=== PATIENT | male | born 1950 | race Caucasian/White ===

== ENCOUNTER → 2017-08-10 | Outpatient (CLI) | payer MEDICARE ==
[~2017-08-10] VITALS: Ht 180.3 cm; Wt 73.0 kg
[2017-08-10] VITALS (7 sets, daily range): BP systolic 122–183; BP diastolic 83–99
[~2017-08-10] MED LIST: ASP325T PO; ASPI-983 PO; ATOR10TA PO; CATHETER FLUSH 10 ML SYR IV PRN; FENO135C; GARL10002 PO; GARL400T13 PO; IRB150T; LOSA50TA36 PO; MECL-124 PO; MECL12.579 PO; MULT-1029 PO; NAPR500T4 PO; NF-ESOM40C; NFNEB10T PO; NIAC10002 PO; NIAC1TBM21 PO; NIAC1TBM27; NTR.4SL PO; OMEP-10 PO; OMG1KC PO; PROP1TAB77 PO; PRX20T PO; RNT150T PO; TICA90TA PO
--- NOTE | 2017-08-11 06:52 | STRESS TEST ---
DATE OF SERVICE: 08/10/2017 PROCEDURE: Exercise Myoview Stress Test. Baseline heart rate is 59, baseline blood pressure 159/85. Baseline EKG is sinus rhythm with no ischemic changes. IN SUMMARY: The patient was injected with 10.01 mCi of technetium-99 Myoview and the resting images were obtained. Then, the patient started exercising with the baseline heart rate, blood pressure and EKG mentioned above. He was injected with a stress dose of 29.1 mCi of technetium-99 Myoview, was able to finish a total of 10 minutes and 30 seconds on standard [place] protocol, total of 12.1 Mets, achieving maximum heart rate of 151 which is 98% of maximum expected heart rate. With peak exercise level EKG was showing [address] depression in II, III, aVF, V4 and V5, occasional PVCs were noted. Blood pressure at peak was 183/99. During recovery, heart rate and blood pressure returned to baseline. EKG returned to baseline. The resting and stress images were reviewed and compared in the short axis, horizontal long axis, and vertical long axis views. Review of the images showed diaphragmatic attenuation with typical male pattern. No significant ischemia or infarction was seen. SSS is 3, SDS 3, TID value 0.86. On the gated images, the left ventricle appeared to be normal size with normal contractility. Calculated ejection fraction 63%. CONCLUSION: 1. Excellent exercise tolerance a total of 10 minutes 30 seconds on standard [place] protocol, total of 12.1 Mets, achieving 98% of maximum expected heart rate. 2. Occasional premature ventricular contractions at peak exercise level with nondiagnostic EKG changes with exercise, returned to baseline during recovery. 3. Hypertensive response to exercise, returned to baseline during recovery. 4. Typical male pattern with no significant ischemia or infarction on SPECT images. 5. Normal left ventricular size with normal contractility. Calculated ejection fraction 63%. Job ID: [id number] DocumentID: [id number] Dictated Date: 08/10/2017 11:34:31 Platform Loader Date: 08/10/2017 12:52:51 Dictated By: DAYANNA BATISTA MD
== END ==
LOC: CARD 07:02
PROVIDERS: ATTEND Internal Medicine Cardiovascular Disease
DX: I25.10 Atherosclerotic heart disease of native coronary artery without angina pectoris (principal); R07.89 Other chest pain; I10 Essential (primary) hypertension; E78.2 Mixed hyperlipidemia; R00.2 Palpitations
CPT/HCPCS: 78452; 93017

== ENCOUNTER → 2017-08-16 | Outpatient (CLI) | payer MEDICARE ==
[~2017-08-16] MED LIST changes: -CATHETER FLUSH 10 ML SYR IV PRN; +NAPR500T3 PO; -NAPR500T4 PO
== END ==
LOC: CARD 11:56
PROVIDERS: ATTEND Internal Medicine Cardiovascular Disease
DX: I25.10 Atherosclerotic heart disease of native coronary artery without angina pectoris (principal); R07.89 Other chest pain; I10 Essential (primary) hypertension; E78.2 Mixed hyperlipidemia; R00.2 Palpitations
CPT/HCPCS: 93306

== ENCOUNTER → 2017-12-12 | Outpatient (CLI) | payer MEDICARE ==
[~2017-12-12] MED LIST changes: -NAPR500T3 PO; +NAPR500T4 PO
--- NOTE | 2017-12-12 11:30 | Diagnostic Imaging Report ---
PROCEDURE: US Thyroid. TECHNIQUE: Multiple real-time grayscale images were obtained of the thyroid in various projections. INDICATION: Lump on right neck. FINDINGS: Right lobe of the thyroid measures 4.8 x 2.2 x 1.5 cm. Left lobe measures 4.7 x 1.8 x 1.6 cm. There are no discrete solid or cystic thyroid masses. In the region of palpable abnormality of the right neck there is a small lymph node measuring 0.8 cm. IMPRESSION: No evidence of a discrete thyroid nodule. The palpable abnormality appears to correspond with an 8 mm lymph node in the right neck. Dictated by: Dictated on workstation # [id number]
== END ==
LOC: RAD 08:53
PROVIDERS: ATTEND Nurse Practitioner Community Health
DX: R22.1 Localized swelling, mass and lump, neck (principal)
CPT/HCPCS: 76536

== ENCOUNTER → 2018-01-12 | Outpatient (CLI) | payer MEDICARE ==
[~2018-01-12] MED LIST changes: +CATHETER FLUSH 10 ML SYR IV PRN; +IOHEXOL 350 MG/ML 100 ML (OMNIPAQUE 350) VIAL IV ONE; +NAPR-915 PO; -NAPR500T4 PO; +NS 250 ML (IVPB) BAG IV ONE
[2018-01-12 11:44] LABS: BUN/CREATININE RATIO 13; CREATININE SERUM 0.79 MG/DL (0.60-1.30); GFR ESTIMATED > 60
--- NOTE | 2018-01-12 12:46 | Diagnostic Imaging Report ---
PROCEDURE: CT neck soft tissue with contrast. TECHNIQUE: Multiple contiguous axial images were obtained through the neck after the administration of contrast. INDICATION: Enlarged right neck lymph node. The study is performed for further evaluation. COMPARISON: No prior studies are available for comparison. FINDINGS: The visualized intracranial structures are unremarkable. Posterior nasopharynx and oropharynx are unremarkable. Parapharyngeal fat planes are preserved. The epiglottis and larynx are unremarkable. No thyroid mass is detected. The right submandibular gland appears to be very small. Left submandibular gland is unremarkable. Parotid glands are symmetric bilaterally. A BB marker was placed at the area of palpable abnormality in the right neck. No underlying abnormality is seen. This does correspond to the right sternocleidomastoid muscle. No soft tissue mass or fluid collection is seen. There are normal-sized jugulodigastric and posterior cervical lymph nodes bilaterally. IMPRESSION: Essentially unremarkable CT of the neck. No neck mass or lymphadenopathy is detected. Dictated by: Dictated on workstation # [id number]
== END ==
LOC: RAD 10:49
PROVIDERS: ATTEND Surgery
DX: R59.0 Localized enlarged lymph nodes (principal)
CPT/HCPCS: 36415; 70491; 82565; 84520

== ENCOUNTER 2019-05-11 11:04 | Outpatient (RCR) | payer MEDICARE | END 2019-08-09 | disposition home or self-care (01) | LOC: CARD 11:04 | PROVIDERS: ATTEND Internal Medicine Cardiovascular Disease | DX: I25.10 Atherosclerotic heart disease of native coronary artery without angina pectoris (principal); R00.2 Palpitations; E78.5 Hyperlipidemia, unspecified; I10 Essential (primary) hypertension; R07.89 Other chest pain ==

== ENCOUNTER → 2019-05-11 | Outpatient (CLI) | payer MEDICARE ==
[~2019-05-11] MED LIST changes: -CATHETER FLUSH 10 ML SYR IV PRN; -IOHEXOL 350 MG/ML 100 ML (OMNIPAQUE 350) VIAL IV ONE; -LOSA50TA36 PO; +LOSA50TA63 PO; -NS 250 ML (IVPB) BAG IV ONE
== END ==
LOC: CARD 10:57
PROVIDERS: ATTEND Internal Medicine Cardiovascular Disease
DX: I25.10 Atherosclerotic heart disease of native coronary artery without angina pectoris (principal); R00.2 Palpitations; E78.5 Hyperlipidemia, unspecified; I10 Essential (primary) hypertension; R07.9 Chest pain, unspecified; I36.1 Nonrheumatic tricuspid (valve) insufficiency
CPT/HCPCS: 93306

== ENCOUNTER 2019-08-15 06:58 | Day surgery (SDC) | payer MEDICARE ==
[2019-08-15] VITALS (9 sets, daily range): BP systolic 151–183; BP diastolic 79–96
[~2019-08-15] VITALS: Ht 180 cm; Wt 68.0 kg
[2019-08-15] MEDS ORDERED: NS IV 1000 ML 1,000 ML ONE (07:06)
[2019-08-15] MEDS ORDERED: LIDOCAINE 1% INJ 20 ML 20 ML VIAL ONE (07:06)
[2019-08-15] MEDS ORDERED: HEParin (CATH LAB) 2,000 ML IV ONE (07:06)
[2019-08-15] MEDS ORDERED: NS IV 1000 ML 1,000 ML IV SCH ×2 (07:15→09:29)
[2019-08-15 07:34] LABS: BILIRUBIN,URINE NEGATIVE (NEGATIVE); CLARITY,URINE CLEAR; COLOR,URINE YELLOW; GLUCOSE, URINE (UA) NEGATIVE (NEGATIVE); KETONES,URINE NEGATIVE (NEGATIVE); LEUKOCYTE ESTERASE ,URINE NEGATIVE (NEGATIVE); NITRITE,URINE NEGATIVE (NEGATIVE); PH,URINE 5 (5-9); PROTEIN,URINE NEGATIVE (NEGATIVE); UROBILINOGEN,URINE NORMAL (NORMAL)
[2019-08-15 07:36] LABS: HEMOGLOBIN 17.1 G/DL (13.3-17.7); MEAN PLATELET VOLUME 9.8 FL (7.4-10.4); RED CELL DISTRIBUTION WIDTH 12.1 % (10.0-14.5); WHITE BLOOD COUNT 6.6 10^3/uL (4.3-11.0)
[2019-08-15 07:46] LABS: BACTERIA,URINE TRACE /HPF; SQUAMOUS EPITHELIAL CELL,UR RARE /HPF; WBC,URINE RARE /HPF
[2019-08-15 07:47] LABS: PROTHROMBIN TIME PATIENT 13.6 SEC (12.2-14.7)
[2019-08-15] MEDS ORDERED: OMEP20TA7 PO (07:47)
[2019-08-15] MEDS ORDERED: LOSA100T57 PO (07:47)
[2019-08-15] MEDS ORDERED: NEBI20TA2 PO (07:47)
[2019-08-15] MEDS ORDERED: ATOR10TA PO (07:47)
[2019-08-15 07:52] LABS: ALANINE AMINOTRANSFERASE 28 U/L (0-55); ALBUMIN 4.5 GM/DL (3.2-4.5); ALKALINE PHOSPHATASE 64 U/L (40-136); BILIRUBIN,TOTAL 0.6 MG/DL (0.1-1.0); BUN/CREATININE RATIO 19; CALCIUM 9.4 MG/DL (8.5-10.1); CARBON DIOXIDE 27 MMOL/L (21-32); CHLORIDE 106 MMOL/L (98-107); CHOLESTEROL 165 MG/DL (< 200); GFR ESTIMATED > 60; GLUCOSE 103 MG/DL (70-105); HDL CHOLESTEROL 37 MG/DL (40-60); POTASSIUM 3.9 MMOL/L (3.6-5.0); SODIUM 143 MMOL/L (135-145); TOTAL PROTEIN 7.1 GM/DL (6.4-8.2); TRIGLYCERIDES 188 MG/DL (<150); VLDL CHOLESTEROL 38 MG/DL (5-40)
[2019-08-15] MEDS ORDERED: MULT-1029 PO (07:53)
[2019-08-15] MEDS ORDERED: OMG1KC PO (07:53)
[2019-08-15] MEDS ORDERED: ASPI-983 PO (07:53)
[2019-08-15] MEDS ORDERED: MAGN500C15 PO (07:53)
[2019-08-15] MEDS ORDERED: CHOL200025 PO (07:53)
[2019-08-15] MEDS ORDERED: GARL500C PO (07:53)
[2019-08-15] MEDS ORDERED: NAPR220C61 PO (07:53)
[2019-08-15] MEDS ORDERED: NIAC500T24 PO (07:53)
--- NOTE | 2019-08-15 08:01 | NUR ---
SPOKE WITH PT (HE HAD HIS BOTTLES) TO COMPLETE THE MED REC. PT WAS ABLE TO VERIFY ALL HIS MEDS ALONG WITH TELLING ME HOW HE TAKES EACH PRESCRIPTION. 07-31-2019 BYSTOLIC #30/30DS 07-31-2019 LOSARTAN #30/DS 07-31-2019 OMEPRAZOLE #30/DS 07-31-2019 ATORVASTATIN #DS THESE MEDS WERE ALL FILLED AT [facility] MEDS: FISH OIL 1,000: 3 CAPS DAILY NIACIN 500: 1 HS NAPROXEN 220M TABS DAILY CENTRUM SILVER: 1 DAILY MAGNESIUM 500M DAILY GARLIC: 1 DAILY VITAMIN D3: 1 DAILY ASPIRIN 81M DAILY
--- NOTE | 2019-08-15 08:02 | Cardiac Procedure Note-CS/ASA ---
Pre-Procedure Note Pre-Op Procedure Note H&P Reviewed The H&P was reviewed, patient examined and no changes noted. Date H&P Reviewed: Aug 15, 2019 Time H&P Reviewed: 08:02 Conscious Sedation Pre-Proced Time 08:02 ASA Score 3 For ASA 3 and 4: Consider anesthesia and medical clearance. Also, for patients with a history of failed moderate sedation consider anesthesia. Airway Lungs Heart ASA score ASA 1: a normal healthy patient ASA 2: a patient with a mild systemic disease (mid diabetes, controlled hypertension, obesity x ASA 3: a patient with a severe systemic disease that limits activity (angina, COPD, prior Myocardial infarction) ASA 4: a patient with an incapacitating disease that is a constant threat to life (CHF, renal failure) ASA 5: a moribund patient not expected to survive 24 hrs. (ruptured aneurysm) ASA 6: a declared brain- patient whose organs are being harvested. For emergent operations, add the letter E after the classification Mallampati Classification Grade 3 Sedation Plan Analgesia, Amnesia, Plan communicated to team members, Discussed options with patient/fam, Discussed risks with patient/fam The patient is an appropriate candidate to undergo the planned procedure, sedation, and anesthesia. The patient immediately re-assessed prior to indication. DAYANNA BATISTA MD Aug 15, 2019 08:02
--- NOTE | 2019-08-15 08:45 | Diagnostic Imaging Report ---
EXAMINATION: Portable AP chest obtained at 741h INDICATION: Preop heart catheter The heart size is within normal limits and stable when compared 06/17/16. The lungs are clear. There is no evidence for failure, pneumonia or for a pleural effusion. The mediastinum is not widened. The osseous structures are intact. IMPRESSION: There is no evidence for active disease. Dictated by: Dictated on workstation # [id number]
[2019-08-15] MEDS ORDERED: fentaNYL INJECTION 100 MCG/2 ML AMP ONE (08:55)
[2019-08-15] MEDS ORDERED: MIDAZOLAM 5 MG/5 ML (VERSED) VIAL ONE (08:55)
[2019-08-15] MEDS ORDERED: VERAPAMIL 5 MG/2 ML (CALAN) VIAL IV ONE (09:08)
[2019-08-15] MEDS ORDERED: NITRO DRIP 25000 MCG/D5W 250 ML IV ONE (09:08)
[2019-08-15] MEDS ORDERED: HEParin 1000 UNIT/ML (10ML VIAL) FOR BOLUS ONE (09:08)
--- NOTE | 2019-08-15 09:34 | Discharge Inst-Post CATH ---
Discharge Inst-CATH/EP Problems Reviewed?: Yes Post Cardiac Cath/EP D/C Inst Follow Up/Plan Appointment with Dr. Blackburn's office in 2-4 weeks <b>CARDIAC CATH/EP PROCEDURE DISCHARGE INSTRUCTIONS</b> ACTIVITY * Go Home directly and rest. * Limit activity of the leg (or wrist if it was used) for 7 days including aerobics, swimming, jogging, bicycling, etc. * Restrict stair-climbing for 7 days if possible, if not, climb up with your non-cath leg, then bring together on the same step. * Avoid lifting, pushing, pulling or excessive movement of the affected extremity for 7 days. * Customary sexual activity may be resumed after 2 days-use caution not to use a position that strains or causes pain to the affected extremity. * No driving for 24 hours. * NO SMOKING. * Avoid straining for bowel movements for 7 days. * Gentle walking on level ground is allowed. * Returning to work will depend on the type of procedure and the results. Your doctor will discuss this with you. CALL YOUR DOCTOR FOR ANY OF THE FOLLOWING: *If bleeding from the puncture site occurs- Apply gentle pressure to site with clean cloth and call your doctor or EMS. * If a knot or lump forms under the skin, increases in size, or causes pain. * If bruising appears to be worsening or moving further down your leg instead of disappearing. * Temperature above 101 F. CARE OF YOUR GROIN INCISION; * Bruising or purple discoloration of the skin near the puncture site is common. * You may shower only, no bathtub bathing for 5 days. Be careful to avoid slipping as your leg may feel stiff. * If a closure device was used on your femoral artery, please see the attached guide regarding care of the device and your leg. * Leave dressing on FOR 24 hours. CARE OF YOUR WRIST INCISION; * Bruising or purple discoloration of the skin near the puncture site is common. * You may shower. * DO NOT submerge wrist. * Leave dressing on FOR 24 hours. DAYANNA BLACKBURN MD Aug 15, 2019 09:34
--- NOTE | 2019-08-15 09:37 | Cardiac Cath Report ---
Cardiac Cath Report Physician (s)/Nutritionalist (s) Physician DAYANNA BATISTA MD Pre-Procedure Diagnosis Pre-Procedure Diagnosis: Coronary artery disease, ventricular tachycardia Post-Procedure Note Procedure Start Date: Aug 15, 2019 Name of Procedure: Left heart catheterization Findings/Procedure Note PROCEDURE NOTE: 68 years old gentleman with history of coronary artery disease, stent to the circumflex artery, was noted to have frequent PVCs and nonsustained ventricular tachycardia, he was scheduled for cardiac catheterization possible PTCA. After explaining the procedure to the patient, all pros and cons were explained, all questions were answered. The patient signed the consent and then he was placed on the cardiac catheterization laboratory. Groin was prepped SL fashion local anesthesia was used. Sheath placed in the Right radial artery, Austin catheter was advanced to the left ventricular cavity left ventricular pressure was measured, no angiogram was done, pullback LV to aorta was done, pressure was measured, adjusted left coronary system and angiogram to the left system was done, exchange to JR catheter, advanced to the right coronary system and angiogram was done. At the end of the procedure the sheath was removed. vascular band was used FINDINGS: Hemodynamics LV 147/15, end-diastolic pressure 15 Aorta 145/85 mean of 111 ANATOMY: Left Main is free of obstructive disease Left Anterior Descending has mild disease nonobstructive disease Left Circumflex has a patent stent with no obstructive disease Right Coronory Artery has mild disease obstructive disease LV Gram was not done, pressure was measured CONCLUSION: 1. Mild coronary artery disease nonobstructive disease 2. Normal left ventricular end-diastolic pressure DISCUSSION AND RECOMMENDATION: medical therapy is recommended no intervention is needed Anesthesia Type: Conscious Sedation Estimated blood loss (mL): 10 ml Contrast Amount: 45 ml Total Radiation Dose: 192 mGy Post-Procedure Diagnosis Post-operative diagnosis: Coronary artery disease Ventricular tachycardia Hypertension Hyperlipidemia DAYANNA BATISTA MD Aug 15, 2019 09:37
== END 2019-08-15 12:00 | disposition home or self-care (01) ==
LOC: CATH 06:58 → SDC 09:45 → CATH 12:00
PROVIDERS: ATTEND Internal Medicine Cardiovascular Disease
DX: I25.10 Atherosclerotic heart disease of native coronary artery without angina pectoris (principal); I77.1 Stricture of artery; I47.2 Ventricular tachycardia; I49.3 Ventricular premature depolarization; I10 Essential (primary) hypertension; K21.9 Gastro-esophageal reflux disease without esophagitis; E78.5 Hyperlipidemia, unspecified; R00.2 Palpitations; R59.0 Localized enlarged lymph nodes; Z87.891 Personal history of nicotine dependence; Z79.82 Long term (current) use of aspirin; Z79.899 Other long term (current) drug therapy; Z82.49 Family history of ischemic heart disease and other diseases of the circulatory system; Z82.3 Family history of stroke; Z80.9 Family history of malignant neoplasm, unspecified
CPT/HCPCS: 36415; 71045; 80053; 80061; 81000; 85027; 85610; 85730; 87081; 93005; 93458

== ENCOUNTER 2019-10-10 09:09 | Inpatient (IN) | payer MEDICARE, MEDICAID ==
[2019-10-10] VITALS (13 sets, daily range): BP systolic 87–120; BP diastolic 43–86
[~2019-10-10] VITALS: Ht 180 cm; Wt 70.0 kg
[~2019-10-10 09:09] MED LIST changes: +CHOL200025 PO; +GARL500C PO; +LOSA100T57 PO; +MAGN500C15 PO; +NAPR220C61 PO; +NEBI20TA2 PO; +NIAC500T24 PO; +OMEP20TA7 PO
[2019-10-10] MEDS ORDERED: ASPIRIN 81 MG CHEW (CHILDREN'S ASA) PO ONE (09:15)
--- NOTE | 2019-10-10 09:25 | NUR ---
PHARMACY NOTIFIED OF NEEDING SHO DARNELL.
[2019-10-10] MEDS ORDERED: DILTIAZEM 25 MG/5 ML INJ (CARDIZEM) VIAL IVP ONE (09:30)
[2019-10-10] MEDS ORDERED: DILTIAZEM IV FOR DRIP 125 MG in NS (IVPB) 100 ML IV SCH (09:30)
[2019-10-10 09:37] LABS: BASOPHILS % (AUTO) 1 % (0-10); EOSINOPHILS # (AUTO) 0.1 10^3/uL (0.0-0.3); EOSINOPHILS % (AUTO) 1 % (0-10); HEMATOCRIT 47 % (40-54); HEMOGLOBIN 15.7 G/DL (13.3-17.7); LYMPHOCYTES # (AUTO) 1.4 X 10^3 (1.0-4.0); LYMPHOCYTES % (AUTO) 21 % (12-44); MEAN CORPUSCULAR HEMOGLOBIN 31 PG (25-34); MEAN CORPUSCULAR HGB CONC 34 G/DL (32-36); MEAN CORPUSCULAR VOLUME 92 FL (80-99); MEAN PLATELET VOLUME 9.3 FL (7.4-10.4); MONOCYTES # (AUTO) 0.8 X 10^3 (0.0-1.0); MONOCYTES % (AUTO) 12 % (0-12); NEUTROPHILS # (AUTO) 4.3 X 10^3 (1.8-7.8); NEUTROPHILS % (AUTO) 65 % (42-75); PLATELET COUNT 371 10^3/uL (130-400); RED CELL DISTRIBUTION WIDTH 11.7 % (10.0-14.5); WHITE BLOOD COUNT 6.6 10^3/uL (4.3-11.0)
[2019-10-10 09:51] LABS: INR 1.1 (0.8-1.4); PROTHROMBIN TIME PATIENT 14.4 SEC (12.2-14.7)
--- NOTE | 2019-10-10 09:55 | Diagnostic Imaging Report ---
CLINICAL INDICATION: Patient with heart palpitations this morning. EXAM: Portable chest x-ray upright view. COMPARISON: Chest x-ray dated 08/15/2019. FINDINGS: LUNGS/PLEURA: Again seen is minimal atelectasis or scarring in the periphery of the right lung base. Otherwise, the lungs are clear. There is no pneumothorax. There is no pleural effusion. MEDIASTINUM: Unremarkable. PULMONARY VASCULATURE: Unremarkable. HEART: Unremarkable. BONES/EXTRATHORACIC SOFT TISSUE: There are hypertrophic spurs involving the visualized thoracic spine. IMPRESSION: 1. Stable chest x-ray exam with no interval radiographic evidence of acute cardiopulmonary process. 2. Stable minimal atelectasis or scarring in the periphery of the right lung base. Dictated by: Dictated on workstation # [id number]
[2019-10-10 09:56] LABS: ALANINE AMINOTRANSFERASE 18 U/L (0-55); ALKALINE PHOSPHATASE 81 U/L (40-136); BILIRUBIN,TOTAL 0.6 MG/DL (0.1-1.0); BUN/CREATININE RATIO 21; CALCIUM 9.3 MG/DL (8.5-10.1); CARBON DIOXIDE 25 MMOL/L (21-32); CHLORIDE 107 MMOL/L (98-107); CREATININE SERUM 0.75 MG/DL (0.60-1.30); GFR ESTIMATED > 60; GLUCOSE 93 MG/DL (70-105); MAGNESIUM 1.9 MG/DL (1.6-2.4); POTASSIUM 3.6 MMOL/L (3.6-5.0); SODIUM 144 MMOL/L (135-145); TOTAL PROTEIN 6.7 GM/DL (6.4-8.2)
--- NOTE | 2019-10-10 10:10 | ED Chest Pain ---
General Chief Complaint: Chest Pain Stated Complaint: CHEST PRESSURE Nursing Triage Note: ARRIVED VIA AMB TO ROOM 5 WITH COMPLAINTS OF CHEST PRESSURE AND PALPITATIONS STARTING APPX 1 HR PROOFER. Nursing Sepsis Screen: No Definite Risk Source: patient Exam Limitations: no limitations History of Present Illness Date Seen by Provider: Oct 10, 2019 Time Seen by Provider: 09:10 Initial Comments Here with report of chest pressure and palpitations that started approximately one hour ago. States that he feels like his heart is pounding. Does have history of previous stent but is not on blood thinner anymore as he is past the timeframe. Follows with Dr. Blackburn. Denies nausea, vomiting or weakness. Does feel short of breath. Timing/Duration: 1 hour Severity/Quality: moderate, pressure Location: central Radiation: no radiation Activities at Onset: none Prior CP/Workup: cardiac cath ASA po PROOFER: No NTG SL PROOFER: No Associated Symptoms: No abdominal pain, No back pain, No fever/chills, No nause a/vomiting, No shortness of breath, No weakness Allergies and Home Medications Allergies Coded Allergies: enalapril (Verified Adverse Reaction, Unknown, cough, 06/17/16) Home Medications Aspirin 81 Mg Tablet., 81 MG PO HS, (Reported) Atorvastatin Calcium 10 Mg Tablet, 10 MG PO DAILY, (Reported) Cholecalciferol (Vitamin D3) 2,000 Unit Tablet, 2,000 UNIT PO DAILY, (Reported) Garlic 500 Mg Capsule, 500 MG PO DAILY, (Reported) Losartan Potassium 100 Mg Tablet, 100 MG PO DAILY, (Reported) Magnesium Oxide 500 Mg Capsule, 500 MG PO DAILY, (Reported) Multivit-Min/FA/Lycopene/Lut 1 Each Tablet, 1 EACH PO DAILY, (Reported) Naproxen Sodium 220 Mg Capsule, 440 MG PO DAILY, (Reported) Nebivolol HCl 20 Mg Tablet, 20 MG PO DAILY, (Reported) Niacinamide 500 Mg Tablet, 500 MG PO HS, (Reported) [place] 3 Polyunsat Fatty Acids 1,000 Mg Cap, 3,000 MG PO DAILY, (Reported) Omeprazole 20 Mg Tablet.dr, 20 MG PO DAILY, (Reported) Patient Home Medication List Home Medication List Reviewed: Yes Review of Systems Review of Systems Constitutional: see HPI; No chills, No fever EENTM: No Symptoms Reported Respiratory: Denies Cough, Denies Shortness of Air Cardiovascular: Chest Pain, Irregular Heart Rate, Palpitations Gastrointestinal: No Symptoms Reported Genitourinary: No Symptoms Reported Musculoskeletal: no symptoms reported Skin: no symptoms reported Psychiatric/Neurological: No Symptoms Reported All Other Systems Reviewed Negative Unless Noted: Yes Past Ldxqifo-Zjupkg-Ckvmas Hx Past Med/Social Hx: Reviewed Nursing Past Med/Soc Hx Patient Social History Alcohol Use: Occasionally Uses Recreational Drug Use: Yes Drug of Choice: POT Smoking Status: Never a Smoker Type Used: Cigarettes Former Smoker, Quit: Jun 17, 1980 2nd Hand Smoke Exposure: Yes Recent Foreign Travel: No Contact w/Someone Who Travel: No Recent Infectious Disease Expo: No Recent Hopitalizations: No Past Medical History Surgeries: Yes Coronary Stent Respiratory: No Currently Using CPAP: No Currently Using BIPAP: No Cardiac: No (PVC'S) Coronary Artery Disease, High Cholesterol, Hypertension Neurological: No Genitourinary: No Gastrointestinal: Yes Gastroesophageal Reflux Musculoskeletal: No Endocrine: No Cancer: No Psychosocial: No Integumentary: No Family Medical History Reviewed Nursing Family Hx Physical Exam Vital Signs Vital Signs - First Documented 10/10/19 09:09 Temp 37.0 Pulse 121 Resp 16 B/P (MAP) 179/94 (122) Pulse Ox 98 O2 Delivery Room Air Capillary Refill : Less Than 3 Seconds Height, Weight, BMI Height: 5'11.00" Weight: 161lbs. 0.0oz. 73.890377hy; 20.00 BMI Method:Stated General Appearance: No Apparent Distress, WD/WN HEENT: PERRL/EOMI, Pharynx Normal Neck: Non Tender, Supple Respiratory: Lungs Clear, Normal Breath Sounds Cardiovascular: No Murmur, Irregularly Irregular, Tachycardia Gastrointestinal: Non Tender, Soft Extremity: Normal Range of Motion, Non Tender Neurologic/Psychiatric: Alert, Oriented x3 Skin: Normal Color, Warm/Dry Progress/Results/Core Measures Results/Orders Lab Results Laboratory Tests Test 10/10/19 09:28 Range/Units White Blood Count 6.6 4.3-11.0 10^3/uL Red Blood Count 5.05 4.35-5.85 10^6/uL Hemoglobin 15.7 13.3-17.7 G/DL Hematocrit 47 40-54 % Mean Corpuscular Volume 92 80-99 FL Mean Corpuscular Hemoglobin 31 25-34 PG Mean Corpuscular Hemoglobin Concent 34 32-36 G/DL Red Cell Distribution Width 11.7 10.0-14.5 % Platelet Count 371 130-400 10^3/uL Mean Platelet Volume 9.3 7.4-10.4 FL Neutrophils (%) (Auto) 65 42-75 % Lymphocytes (%) (Auto) 21 12-44 % Monocytes (%) (Auto) 12 0-12 % Eosinophils (%) (Auto) 1 0-10 % Basophils (%) (Auto) 1 0-10 % Neutrophils # (Auto) 4.3 1.8-7.8 X 10^3 Lymphocytes # (Auto) 1.4 1.0-4.0 X 10^3 Monocytes # (Auto) 0.8 0.0-1.0 X 10^3 Eosinophils # (Auto) 0.1 0.0-0.3 10^3/uL Basophils # (Auto) 0.0 0.0-0.1 10^3/uL Prothrombin Time 14.4 12.2-14.7 SEC INR Comment 1.1 0.8-1.4 Activated Partial Thromboplast Time 36 H 24-35 SEC Sodium Level 144 135-145 MMOL/L Potassium Level 3.6 3.6-5.0 MMOL/L Chloride Level 107 98-107 MMOL/L Carbon Dioxide Level 25 21-32 MMOL/L Anion Gap 12 5-14 MMOL/L Blood Urea Nitrogen 16 7-18 MG/DL Creatinine 0.75 0.60-1.30 MG/DL Estimat Glomerular Filtration Rate > 60 BUN/Creatinine Ratio 21 Glucose Level 93 70-105 MG/DL Calcium Level 9.3 8.5-10.1 MG/DL Corrected Calcium 9.3 8.5-10.1 MG/DL Magnesium Level 1.9 1.6-2.4 MG/DL Total Bilirubin 0.6 0.1-1.0 MG/DL Aspartate Amino Transf (AST/SGOT) 17 5-34 U/L Alanine Aminotransferase (ALT/SGPT) 18 0-55 U/L Alkaline Phosphatase 81 40-136 U/L Myoglobin 31.7 10.0-92.0 NG/ML Troponin I < 0.028 <0.028 NG/ML B-Type Natriuretic Peptide 123.9 H <100.0 PG/ML Total Protein 6.7 6.4-8.2 GM/DL Albumin 4.0 3.2-4.5 GM/DL My Orders Orders - JOSE G MILLER MD Cbc With Automated Diff (10/10/19 09:13) Magnesium (10/10/19 09:13) Chest 1 View, Ap/Pa Only (10/10/19 09:13) Ekg Tracing (10/10/19 09:13) Comprehensive Metabolic Panel (10/10/19 09:13) Myoglobin Serum (10/10/19 09:13) Protime With Inr (10/10/19 09:13) Partial Thromboplastin Time (10/10/19 09:13) O2 (10/10/19 09:13) Monitor-Rhythm Ecg Trace Only (10/10/19 09:13) Lipid Panel (10/11/19 06:00) Ed Iv/Invasive Line Start (10/10/19 09:13) BNP (10/10/19 09:13) Aspirin Chewable Tablet (Baby Aspirin Ch (10/10/19 09:15) Ns (Ivpb) (Sodium C... W/Diltiazem Iv Fo (10/10/19 09:30) Diltiazem Injection (Cardizem Injection) (10/10/19 09:30) Troponin I (10/10/19 09:28) Apixaban Tablet (Eliquis Tablet) (10/10/19 10:15) Medications Given in ED Current Medications Medications Dose Ordered Sig/Gonsalo Route Start Time Stop Time Status Last Admin Dose Admin Aspirin 324 mg ONCE ONCE PO 10/10/19 09:15 10/10/19 09:16 DC 10/10/19 09:31 324 MG Diltiazem HCl 10 mg ONCE ONCE IVP 10/10/19 09:30 10/10/19 09:31 DC 10/10/19 09:32 10 MG Vital Signs/I&O 10/10/19 10/10/19 09:09 09:38 Temp 37.0 Pulse 121 81 Resp 16 16 B/P (MAP) 179/94 (122) 179/94 Pulse Ox 98 97 O2 Delivery Room Air Blood Pressure Mean: 122 POS Progress Progress Note : Progress Note Seen and evaluated. IV, labs, EKG, chest x-ray and ASA 324 mg by mouth ordered. Monitor patient. A. fib with RVR noted. Cardizem 10 mg IV bolus and 10 mg an hour drip ordered. 1005: Heart rate now in the 70s to 80s but still in atrial fibrillation. Patient is not anticoagulated. Anticipate admission. This was discussed with the patient. He agrees. Monitor patient. 1018: I did discuss the case with Dr. Li. He is recommending admission to the ICU continuation of Cardizem. This will be done. He will see the patient in consult. I did discuss the case with Dr. Urban and she accepts patient for admission, inpatient status. Heart rate remains in the 80s. He is still in A. fib. This was discussed with the patient and family who agree. Initial ECG Impression Date: Oct 10, 2019 Initial ECG Impression Time: 09:13 Initial ECG Rate: 132 Initial ECG Rhythm: A Fib/Flutter Initial ECG Impression: Atrial Fibrillation w/RVR Comment A. fib with RVR. Normal axis. No evidence of ST elevation CA. Change from previous of 08/15/19. Interpreted by me. Diagnostic Imaging Diagonstic Imaging: Xray Plain Films/CT/US/NM/MRI: chest Comments [facility]. POS [place], [place] POS NAME: [facility] REC#: [id number] PT STATUS: REG ER : 1950 PHYSICIAN: JOSE G MILLER MD ADMIT DATE: 10/10/19/ER Draft POSDate of Exam:10/10/19 CHEST 1 VIEW, AP/PA ONLY CLINICAL INDICATION: Patient with heart palpitations this morning. EXAM: Portable chest x-ray upright view. COMPARISON: Chest x-ray dated 08/15/2019. FINDINGS: LUNGS/PLEURA: Again seen is minimal atelectasis or scarring in the periphery of the right lung base. Otherwise, the lungs are clear. There is no pneumothorax. There is no pleural effusion. MEDIASTINUM: Unremarkable. PULMONARY VASCULATURE: Unremarkable. HEART: Unremarkable. BONES/EXTRATHORACIC SOFT TISSUE: There are hypertrophic spurs involving the visualized thoracic spine. IMPRESSION: 1. Stable chest x-ray exam with no interval radiographic evidence of acute cardiopulmonary process. 2. Stable minimal atelectasis or scarring in the periphery of the right lung base. Dictated on workstation # [id number] Dict: 10/10/1951 Trans: 10/10/19 [id number] Interpreted by: PEE KAHN MD Electronically signed by: Departure Communication (Admissions) Time/Spoke to Admitting Phy: 10:18 Time/Spoke to Consulting Phy: 10:12 Impression Primary Impression: Atrial fibrillation with rapid ventricular response Additional Impression: Chest pain Qualified Codes: R07.9 - Chest pain, unspecified Disposition: 09 ADMITTED INPATIENT Condition: Stable Admissions Decision to Admit Reason: Admit from ER (General) Decision to Admit/Date: Oct 10, 2019 Time/Decision to Admit Time: 10:12 Departure-Patient Inst. Referrals: NO,LOCAL PHYSICIAN (PCP) Primary Care Physician MATEO JOSÉ (Family) Primary Care Physician JOSE G MILLER MD Oct 10, 2019 10:10 POS
[2019-10-10] MEDS ORDERED: APIXABAN 5 MG (ELIQUIS) TABLET PO ONE (10:15)
--- NOTE | 2019-10-10 10:52 | NUR ---
ATTEMPT TO CALL REPORT ET ICU NURSE BUSY AND WILL CALL BACK.
--- NOTE | 2019-10-10 11:44 | NUR ---
Telephone report received from Holly SMITH in the ED.Pt arrived to room CU10 at 1144 via stretcher, Linda SMITH accompanying patient for transport to room. Patient is alert and oriented. VSS. Patient denies chest pain at this time. IVF running as ordered. is at bedside. Bed in lowest position, wheels locked and call light is in reach.
[2019-10-10] MEDS ORDERED: FLU QUADRIvalent (5+ YOA) 2019-2020 (AFLURIA) 0.5 ML IM ONE (12:15)
[2019-10-10] MEDS ORDERED: niCARdipine 50 MG/NS 250 ML IV DRIP IV SCH ×2 (12:15)
[2019-10-10] MEDS ORDERED: PNEUMOCOCCAL VACCINE 0.5 ML/25 MCG VIAL IM ONE (12:15)
--- NOTE | 2019-10-10 12:23 | Consultation-Cardiology ---
HPI-Cardiology Cardiology Consultation: Date of Consultation 10/10/19 Time Seen by a Provider: 12:20 Date of Admission 10-10-19 Attending Physician Leslie Urban DO Admitting Physician Maria C,Local Physician Consulting Physician Gibson Li MD Primary Clam Bed Laborer: Dr. Blackburn HPI: Chief Complaint: New onset a-fib with RVR Mr. Lucas is a 68 year old male admitted to ICU 10 with new onset a-fib with RVR. He reports he has been having episodes of palpitations with increasing frequency over the last few weeks. He states approx a week ago he had an episode of palpitations which lasted for approx 12 hours. He reports this morning he got up, got dressed and was watching the news before work when his heart suddenly began to race. He states he checked his BP on home monitor and it was low, but his HR was 140's. He states he felt SOB and lightheaded. He reports the palpitations would not resolve so he came to the ED. He denies any c/o CP, syncope or near syncope. He denies any LE swelling. He states he had a recent viral illness with fever, chills, EDGAR and body aches that lasted for ap prox 14 days and was treated with OTC medications. He denies any n/v/d. Review of Systems-Cardiology Review of Systems Constitutional: As described under HPI Eyes: No vision change Ears/Nose/Throat: No epistaxis, No recent hearing loss Respiratory: As described under HPI Cardiovascular: As described under HPI Gastrointestinal: No constipation, No diarrhea, No nausea, No vomiting Genitourinary: No dysuria, No hematuria Musculoskeletal: As describe under HPI Skin: No rash on exposed areas, No ulcerations on exposed areas Psychiatric/Neurological: No anxiety, No depression, No seizure, No focal weakness, No syncope Hematologic: No bleeding abnormalities All Other Systems Reviewed Negative Unless Noted: Yes FZN-Hqsywd-Dzsoen Hx Patient Social History Alcohol Use: Occasionally Uses Recreational Drug Use: Yes Drug of Choice: POT Smoking Status: Never a Smoker Type Used: Cigarettes 2nd Hand Smoke Exposure: Yes Recent Foreign Travel: No Recent Infectious Disease Expo: No Past Medical History PMH As described under Assessment. Family Medical History Family Medical History: Father had a stroke in his 80's. Mother had HTN. Allergies and Home Medications Allergies Coded Allergies: enalapril (Verified Adverse Reaction, Unknown, cough, 06/17/16) Home Medications Apixaban 5 Mg Tablet, 5 MG PO BID Prescribed by: LORETA DOUGLASS on 10/10/19 1359 Aspirin 81 Mg Tablet.dr, 81 MG PO HS, (Reported) Atorvastatin Calcium 10 Mg Tablet, 10 MG PO DAILY, (Reported) Diltiazem HCl 240 Mg Cap.er.24h, 240 MG PO DAILY@0900 Prescribed by: LORETA DOUGLASS on 10/10/19 1359 Garlic 500 Mg Capsule, 500 MG PO DAILY, (Reported) Losartan Potassium 50 Mg Tablet, 100 MG PO DAILY, (Reported) TAKES 2 (50MG) TABLETS Magnesium Oxide 500 Mg Capsule, 500 MG PO DAILY, (Reported) Multivit-Min/FA/Lycopene/Lut 1 Each Tablet, 1 TAB PO DAILY, (Reported) Naproxen Sodium 220 Mg Capsule, 440 MG PO DAILY PRN for PAIN-MILD (1-4), (Reported) TAKES 2 (220MG) CAPSULES Nebivolol HCl 20 Mg Tablet, 20 MG PO DAILY, (Reported) Niacinamide 500 Mg Tablet, 500 MG PO HS, (Reported) [place] 3 Polyunsat Fatty Acids 1,000 Mg Cap, 3,000 MG PO DAILY, (Reported) Omeprazole 20 Mg Capsule.dr, 20 MG PO DAILY, (Reported) Physical Exam-Cardiology Physical Exam Vital Signs/I&O 10/10/19 10/10/19 10/10/19 10/10/19 09:09 09:38 11:37 11:45 Temp 37.0 Pulse 121 81 67 70 Resp 16 16 16 B/P (MAP) 179/94 (122) 179/94 110/73 107/75 (86) Pulse Ox 98 97 98 97 O2 Delivery Room Air Room Air Room Air 10/10/19 10/10/19 10/10/19 12:00 12:26 13:00 Pulse 70 78 78 Resp 38 19 B/P (MAP) 107/75 (86) 103/67 (79) Pulse Ox 96 98 O2 Delivery Room Air Room Air Capillary Refill : Less Than 3 Seconds Constitutional: AAO x 3, well-developed, well-nourished HEENT: PERRL, hearing is well preserved, oral hygience is good Neck: No carotid bruit; carotid pulses are 2 + bilaterally Respiratory: No accessory muscle use, No respiratory distress; chest expansion is symmetric, chest is bilaterally symmetric, lungs clear to auscultation, other (approx quarter sized protrusion at the tip of the sternum) Cardiovascular: irregularly irregular; No JVD; S1 and S2 Gastrointestinal: No tender; soft, round, audible bowel sounds Rectal: deferred Extremities: no lower extremity edema bilateral Neurologic/Psychiatric: grossly intact Skin: No rash on exposed areas, No ulcerations on exposed areas Data Review Labs Laboratory Tests 10/10/19 09:28: White Blood Count 6.6, Red Blood Count 5.05, Hemoglobin 15.7, Hematocrit 47, Mean Corpuscular Volume 92, Mean Corpuscular Hemoglobin 31, Mean Corpuscular Hemoglobin Concent 34, Red Cell Distribution Width 11.7, Platelet Count 371, Mean Platelet Volume 9.3, Neutrophils (%) (Auto) 65, Lymphocytes (%) (Auto) 21, Monocytes (%) (Auto) 12, Eosinophils (%) (Auto) 1, Basophils (%) (Auto) 1, Neutrophils # (Auto) 4.3, Lymphocytes # (Auto) 1.4, Monocytes # (Auto) 0.8, Eosinophils # (Auto) 0.1, Basophils # (Auto) 0.0, Prothrombin Time 14.4, INR Comment 1.1, Activated Partial Thromboplast Time 36H, Sodium Level 144, Potassium Level 3.6, Chloride Level 107, Carbon Dioxide Level 25, Anion Gap 12, Blood Urea Nitrogen 16, Creatinine 0.75, Estimat Glomerular Filtration Rate > 60, BUN/Creatinine Ratio 21, Glucose Level 93, Calcium Level 9.3, Corrected Calcium 9.3, Magnesium Level 1.9, Total Bilirubin 0.6, Aspartate Amino Transf (AST/SGOT) 17, Alanine Aminotransferase (ALT/SGPT) 18, Alkaline Phosphatase 81, Myoglobin 31.7, Troponin I < 0.028, B-Type Natriuretic Peptide 123.9H, Total Protein 6.7, Albumin 4.0 Radiology NAME: STEW LUCAS [facility] REC#: [id number] PT STATUS: ADM IN : 1950 PHYSICIAN: JOSE G MILLER MD ADMIT DATE: 10/10/19/ICU Signed Date of Exam:10/10/19 CHEST 1 VIEW, AP/PA ONLY CLINICAL INDICATION: Patient with heart palpitations this morning. EXAM: Portable chest x-ray upright view. COMPARISON: Chest x-ray dated 08/15/2019. FINDINGS: LUNGS/PLEURA: Again seen is minimal atelectasis or scarring in the periphery of the right lung base. Otherwise, the lungs are clear. There is no pneumothorax. There is no pleural effusion. MEDIASTINUM: Unremarkable. PULMONARY VASCULATURE: Unremarkable. HEART: Unremarkable. BONES/EXTRATHORACIC SOFT TISSUE: There are hypertrophic spurs involving the visualized thoracic spine. IMPRESSION: 1. Stable chest x-ray exam with no interval radiographic evidence of acute cardiopulmonary process. 2. Stable minimal atelectasis or scarring in the periphery of the right lung base. Dictated by: Dictated on workstation # [id number] ECG Impression ECG Initial ECG Impression: Atrial Fibrillation w/RVR A/P-Cardiology Assessment/Admission Diagnosis New onset a-fib with RVR (first diagnosed 10-10-19 ED visit on EKG) Palpitations with increasing frequency over the last few weeks Recent viral illness for approx 14 days with reported fever and chills - resolv ed CAD - Cardiac cath of Aug 15, [address] Blackburn showed Mild coronary artery disease nonobstructive disease. Normal left ventricular end-diastolic pressure. Previous cardiac catheterization June 17, 2016 revealing proximal/ostial left circumflex 80% eccentric stenosis. Successful primary stenting with excellent results with careful positioning using 3 x 12 mm Promus Premier drug-eluting stent. 30 day event monitor April 2019 showed an episode of 4 beat nonsustained ventricular tachycardia, asymptomatic at the time (subsequent cardiac cath as noted above) History of PVCs Hypertension Hyperlipidemia - reported intolerance to statin d/t myalgias Mild nonobstructive carotid artery stenosis per carotid duplex done in September 2018 Discussion and Recomendations New onset of a-fib with RVR - rate improved with IV Diltiazem - will change to oral Echocardiogram to eval structure and function OAC with Eliquis for stroke prophylaxis Monitor lab closely Further recs will be based on his hospital course We would like to thank medical services for this consult Clinical Quality Measures AMI/AHF: ASA po Prior to arrival: No DVT/VTE Risk/Contraindication: Risk Factor Score Per Nursin RFS Level Per Nursing on Admit: 2=Moderate LORETA DOUGLASS Oct 10, 2019 12:23 POS
[2019-10-10] MEDS ORDERED: DILTIAZEM 180 MG (CARDIZEM CD) CAP PO ONE (12:45)
[2019-10-10] MEDS ORDERED: DILTIAZEM 240 MG (CARDIZEM CD) CAP PO NR (13:00)
[2019-10-10] MEDS ORDERED: CATHETER FLUSH 10 ML SYR IV PRN (13:15)
[2019-10-10] MEDS ORDERED: ATOR10TA66 PO (13:25)
[2019-10-10] MEDS ORDERED: LOSA50TA63 PO (13:25)
[2019-10-10] MEDS ORDERED: OMEP20CA13 PO (13:25)
--- NOTE | 2019-10-10 13:27 | NUR ---
SPOKE WITH THE PATIENT ABOUT HIS MEDICATIONS. WE WENT OVER THE EXT MED HX AND HE VERIFIED HIS OTC MEDS. [facility] FILLED LOSARTAN 50MG #60 FOR 30 DAYS 10-01-19 PREVIOUSLY THEY FILLED THE 100MG TABLET #30 08-26-19. HE STATES HE WAS UNAWARE THEY CHANGED THE DOSE ON HIM SO HE HAS ONLY BEEN TAKING 1 TAB DAILY (50MG) INSTEAD OF THE FULL INTENDED DOSE OF 100MG. I CALLED THE PHARMACY AND THEY STATE THE 100MG TABS HAVE BEEN UNAVAILABLE SO THEY HAVE SWITCHED ALL THEIR PATIENTS TO TWO OF THE 50MG TABS. I LEFT IT ON THE MED REC 2 (50MG) TABS DAILY AND INFORMED THE PATIENT. HE IS GOING TO LET HIS DRJuju KNOW ABOUT THE MISTAKE AND RESUME TAKING IT CORRECTLY FROM NOW ON. OTC MEDS: FISH OIL 3 DAILY ASPIRIN 81MG HS GARLIC DAILY MAGNESIUM DAILY MTV DAILY ALEVE 2 TABS DAILY PRN NIACIN HS
[2019-10-10] MEDS: NS IV 1000 ML 1,000 ML IV SCH ×2 (13:38→22:30)
[2019-10-10] MEDS: DILTIAZEM 125 MG/NS 100 ML IV SCH ×2 (13:41)
[2019-10-10] MEDS ORDERED: DILT240C97 PO (13:59)
[2019-10-10] MEDS ORDERED: APIX5TAB PO (13:59)
--- NOTE | 2019-10-10 14:08 | History & Physical-Hospitalist ---
History of Present Illness HPI/Chief Complaint Chief complaint: Palpitations History of present illness: This is a 68-year-old white male clinic patient of [facility] who presents to the ER with palpitations found to have new onset atrial fibrillation with rapid ventricular response. He reports that he's had palpitations on and off for a while the most recent lasted about 12 hours. It spontaneously resolved. Reports some chest pain accompanying the palpitations. He does not smoke and rarely drinks alcohol and he is and has a full-time job after retiring from the [employer] business. At this current time patient is on a Cardizem drip and the goal is to initiate oral anticoagulation for stroke prophylaxis gained rate control and hopefully convert and have further cardiology workup. Source: patient, family Exam Limitations: no limitations Date Seen 10/10/19 Time Seen by a Provider: 14:45 Attending Physician Leslie Urban DO PCP No,Local Physician Referring Physician Date of Admission Oct 10, 2019 at 10:46 Home Medications & Allergies Home Medications Reviewed patient Home Medication Reconciliation performed by pharmacy medication reconciliations photovoltaic testing technician and/or nursing. Patients Allergies have been reviewed. 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) Alcohol Use: Occasionally Uses Recreational Drug Use: Yes Drug of Choice: POT Smoking Status: Never a Smoker Former Smoker, Quit: Jun 17, 1980 Type Used: Cigarettes 2nd Hand Smoke Exposure: Yes Recent Foreign Travel: No Contact w/other who traveled: No Recent Hopitalizations: No Recent Infectious Disease Expo: No Past Medical History Surgeries: Coronary Stent Currently Using CPAP: No Currently Using BIPAP: No Cardiac: Coronary Artery Disease, High Cholesterol, Hypertension Gastrointestinal: Gastroesophageal Reflux Family History Reviewed Nursing Family Hx Review of Systems Constitutional: see HPI Respiratory: short of breath Cardiovascular: chest pain, palpitations Physical Exam Physical Exam Vital Signs Vital Signs - First Documented 10/10/19 09:09 Temp 37.0 Pulse 121 Resp 16 B/P (MAP) 179/94 (122) Pulse Ox 98 O2 Delivery Room Air Capillary Refill : Less Than 3 SecondsLess Than 3 Seconds Height, Weight, BMI Height: 5'11.00" Weight: 161lbs. 0.0oz. [id number]; 20.00 BMI Method:Stated General Appearance: No Apparent Distress Eyes: Right Eye Normal Inspection, Right Eye PERRL HEENT: PERRL/EOMI, TMs Normal, Normal ENT Inspection, Pharynx Normal, Moist Mucous Membranes Neck: Full Range of Motion, Normal Inspection, Non Tender Respiratory: Chest Non Tender, Lungs Clear, Normal Breath Sounds, No Accessory Muscle Use, No Respiratory Distress Cardiovascular: No Edema, No Gallop, No JVD, No Murmur, Normal Peripheral Pulses, Irregularly Irregular, Tachycardia Gastrointestinal: Normal Bowel Sounds, No Organomegaly, No Pulsatile Mass, Non Tender, Soft Back: Normal Inspection, No CVA Tenderness, No Vertebral Tenderness Extremity: Normal Capillary Refill, Normal Inspection, Normal Range of Motion, Non Tender, No Calf Tenderness, No Pedal Edema Neurologic/Psychiatric: Alert, Oriented x3, No Motor/Sensory Deficits, Normal Mood/Affect Skin: Normal Color, Warm/Dry Lymphatic: No Adenopathy Results Results/Procedures Labs Laboratory Tests 10/10/19 09:28 Patient resulted labs reviewed. Assessment/Plan Admission Diagnosis Assessment: New-onset atrial fibrillation with rapid ventricular response Chest pain History of CAD Hypertension Hyperlipidemia GERD Plan: Rate control and hopefully converted with Cardizem Oral adequate coagulation for stroke prophylaxis Reconcile home meds Admission Status: Inpatient Order (span 2 midnights) Reason for Inpatient Admission: Atrial fibrillation require IV Cardizem and cardiology workup Diagnosis/Problems Diagnosis/Problems (1) Atrial fibrillation with rapid ventricular response Status: Acute (2) Chest pain Status: Acute Qualifiers: Chest pain type: unspecified Qualified Codes: R07.9 - Chest pain, unspecified (3) HLP (4) HTN (hypertension) (5) CAD (coronary artery disease) Clinical Quality Measures AMI/AHF: ASA po Prior to arrival: No DVT/VTE Risk/Contraindication: Risk Factor Score Per Nursin RFS Level Per Nursing on Admit: 2=Moderate LESLIE URBAN DO Oct 10, 2019 14:08 POS
[2019-10-10] MEDS ORDERED: ACETAMINOPHEN 500 MG TAB (TYLENOL) PO PRN (14:15)
[2019-10-10] MEDS ORDERED: ONDANSETRON 4 MG (ZOFRAN) ORAL DISSOLVE TAB PO PRN (14:15)
[2019-10-10] MEDS ORDERED: LOPERAMIDE 2 MG (IMODIUM) TABLET PO PRN (14:15)
[2019-10-10] MEDS ORDERED: DOCUSATE SODIUM 100 MG (COLACE) CAP PO PRN (14:15)
[2019-10-10] MEDS ORDERED: HYDROcodone/APAP 5 MG/325 MG (LORTAB) TAB PO PRN (14:15)
[2019-10-10] MEDS ORDERED: MELATONIN 3 MG TABLET PO PRN (14:15)
[2019-10-10] MEDS ORDERED: diphenhydrAMINE 25 MG TAB (BENADRYL) PO PRN (14:15)
[2019-10-10] MEDS ORDERED: ALPRAZolam 0.25 MG (XANAX) TAB PO PRN (14:15)
[2019-10-10] MEDS ORDERED: ONDANSETRON 4 MG/2 ML (SDV) Z0FRAN IVP PRN (14:15)
--- NOTE | 2019-10-10 14:40 | NUR ---
PO Cardizem given at 1340, IV Cardizem turned off at 1440 per physician. VSS.
[2019-10-10] MEDS ORDERED: NIACIN 500 MG TABLET PO SCH (17:00)
[2019-10-10] MEDS ORDERED: VANCOMYCIN 1250 MG/NS 250 ML IVPB IV NR ×2 (18:30)
[2019-10-10] MEDS: APIXABAN 5 MG (ELIQUIS) TABLET PO SCH (20:55)
[2019-10-10] MEDS: SENNA W/DOCUSATE (SENOKOT S) TABLET PO SCH (20:55)
[2019-10-10] MEDS ORDERED: ASPIRIN E.C. 81 MG (ECOTRIN) TAB PO SCH (21:00)
--- NOTE | 2019-10-10 21:09 | Consultation-Cardiology ---
HPI-Cardiology Cardiology Consultation: Date of Consultation 10/10/19 Time Seen by a Provider: 20:50 Date of Admission Attending Physician Leslie Urban DO Admitting Physician No,Local Physician Consulting Physician TIFFANY GAO MD, MA, FACP, FACC, [facility] [place] HPI: Chief Complaint: Reason for consultation: New onset a-fib with RVR HPI Mr. Briggs is a 68 year old male admitted to ICU 10 with new onset a-fib with RVR. He reports he has been having episodes of palpitations with increasing frequency over the last few weeks. He states approx a week ago he had an episode of palpitations which lasted for approx 12 hours. He reports this morning he got up, got dressed and was watching the news before work when his heart suddenly began to race. He states he checked his BP on home monitor and it was low, but his HR was 140's. He states he felt SOB and lightheaded. He reports the palpitations would not resolve so he came to the ED. He denies any c/o CP, syncope or near syncope. He denies any LE swelling. He states he had a recent viral illness with fever, chills, EDGAR and body aches that lasted for approx 14 days and was treated with OTC medications. He denies any n/v/d. Review of Systems-Cardiology Review of Systems Constitutional: As described under HPI Eyes: No vision change Ears/Nose/Throat: No epistaxis, No recent hearing loss Respiratory: As described under HPI Cardiovascular: As described under HPI Gastrointestinal: No constipation, No diarrhea, No nausea, No vomiting Genitourinary: No dysuria, No hematuria Musculoskeletal: As describe under HPI Skin: No rash on exposed areas, No ulcerations on exposed areas Psychiatric/Neurological: No anxiety, No depression, No seizure, No focal weakness, No syncope Hematologic: No bleeding abnormalities All Other Systems Reviewed Negative Unless Noted: Yes QZG-Stkgtn-Cupqha Hx Patient Social History Marrital Status: 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 Family Medical History Family Medical History: Father had a stroke in his 80's. Mother had HTN. Allergies and Home Medications Allergies Coded Allergies: enalapril (Verified Adverse Reaction, Unknown, cough, 06/17/16) Home Medications Apixaban 5 Mg Tablet, 5 MG PO BID Prescribed by: LORETA DOUGLASS on 10/10/19 1359 Aspirin 81 Mg Tablet.dr, 81 MG PO HS, (Reported) Atorvastatin Calcium 10 Mg Tablet, 10 MG PO DAILY, (Reported) Diltiazem HCl 240 Mg Cap.er.24h, 240 MG PO DAILY@0900 Prescribed by: LORETA DOUGLASS on 10/10/19 1359 Garlic 500 Mg Capsule, 500 MG PO DAILY, (Reported) Losartan Potassium 50 Mg Tablet, 100 MG PO DAILY, (Reported) TAKES 2 (50MG) TABLETS Magnesium Oxide 500 Mg Capsule, 500 MG PO DAILY, (Reported) Multivit-Min/FA/Lycopene/Lut 1 Each Tablet, 1 TAB PO DAILY, (Reported) Naproxen Sodium 220 Mg Capsule, 440 MG PO DAILY PRN for PAIN-MILD (1-4), (Reported) TAKES 2 (220MG) CAPSULES Nebivolol HCl 20 Mg Tablet, 20 MG PO DAILY, (Reported) Niacinamide 500 Mg Tablet, 500 MG PO HS, (Reported) [place] 3 Polyunsat Fatty Acids 1,000 Mg Cap, 3,000 MG PO DAILY, (Reported) Omeprazole 20 Mg Capsule.dr, 20 MG PO DAILY, (Reported) Patient Home Medication List Home Medication List Reviewed: Yes Physical Exam-Cardiology Physical Exam Vital Signs/I&O 10/10/19 10/10/19 10/10/19 10/10/19 09:09 09:38 11:37 11:45 Temp 37.0 Pulse 121 81 67 70 Resp 16 16 16 B/P (MAP) 179/94 (122) 179/94 110/73 107/75 (86) Pulse Ox 98 97 98 97 O2 Delivery Room Air Room Air Room Air 10/10/19 10/10/19 10/10/19 10/10/19 12:00 12:00 12:26 13:00 Pulse 70 78 84 Resp 38 B/P (MAP) 107/75 (86) Pulse Ox 98 96 O2 Delivery Room Air Room Air 10/10/19 10/10/19 10/10/19 10/10/19 13:00 13:00 14:00 14:19 Temp 37.4 Pulse 78 73 Resp 19 12 B/P (MAP) 103/67 (79) 99/72 (81) Pulse Ox 98 97 97 O2 Delivery Room Air Room Air Room Air 10/10/19 10/10/19 10/10/19 10/10/19 15:00 16:00 16:00 16:00 Temp 36.8 Pulse 56 81 Resp 12 B/P (MAP) 94/69 (77) 106/65 (79) Pulse Ox 97 98 96 O2 Delivery Room Air Room Air Room Air 10/10/19 10/10/19 10/10/19 17:00 18:00 20:01 Temp 37.5 Pulse 80 73 Resp 53 B/P (MAP) 98/65 (76) 108/78 (88) Pulse Ox 96 95 O2 Delivery Room Air Room Air Capillary Refill : Less Than 3 SecondsLess Than 3 Seconds Constitutional: AAO x 3, well-developed, well-nourished HEENT: PERRL, hearing is well preserved, oral hygience is good Neck: No carotid bruit; carotid pulses are 2 + bilaterally Respiratory: No accessory muscle use, No respiratory distress; chest expansion is symmetric, chest is bilaterally symmetric, lungs clear to auscultation, other (approx quarter sized protrusion at the tip of the sternum) Cardiovascular: irregularly irregular; No JVD; S1 and S2 Gastrointestinal: No tender; soft, round, audible bowel sounds Rectal: deferred Extremities: no lower extremity edema bilateral Neurologic/Psychiatric: grossly intact Skin: No rash on exposed areas, No ulcerations on exposed areas Data Review Labs Laboratory Tests 10/10/19 09:28: White Blood Count 6.6, Red Blood Count 5.05, Hemoglobin 15.7, Hematocrit 47, Mean Corpuscular Volume 92, Mean Corpuscular Hemoglobin 31, Mean Corpuscular Hemoglobin Concent 34, Red Cell Distribution Width 11.7, Platelet Count 371, Mean Platelet Volume 9.3, Neutrophils (%) (Auto) 65, Lymphocytes (%) (Auto) 21, Monocytes (%) (Auto) 12, Eosinophils (%) (Auto) 1, Basophils (%) (Auto) 1, Neutrophils # (Auto) 4.3, Lymphocytes # (Auto) 1.4, Monocytes # (Auto) 0.8, Eosinophils # (Auto) 0.1, Basophils # (Auto) 0.0, Prothrombin Time 14.4, INR Comment 1.1, Activated Partial Thromboplast Time 36H, Sodium Level 144, Pota ssium Level 3.6, Chloride Level 107, Carbon Dioxide Level 25, Anion Gap 12, Blood Urea Nitrogen 16, Creatinine 0.75, Estimat Glomerular Filtration Rate > 60, BUN/Creatinine Ratio 21, Glucose Level 93, Calcium Level 9.3, Corrected Calcium 9.3, Magnesium Level 1.9, Total Bilirubin 0.6, Aspartate Amino Transf (AST/SGOT) 17, Alanine Aminotransferase (ALT/SGPT) 18, Alkaline Phosphatase 81, Myoglobin 31.7, Troponin I < 0.028, B-Type Natriuretic Peptide 123.9H, Total Protein 6.7, Albumin 4.0 Laboratory Tests 10/10/19 09:28 A/P-Cardiology Assessment/Admission Diagnosis New onset a-fib with RVR (first diagnosed 10-10-19 ED visit on EKG). This is the likely cause of his recent palpitations Recent viral illness for approx 14 days with reported fever and chills - resolved CAD - Cardiac cath of Aug 15, [address] Blackburn showed Mild coronary artery disease nonobstructive disease. Normal left ventricular end-diastolic pressure. Previous cardiac catheterization June 17, 2016 revealing proximal/ostial left circumflex 80% eccentric stenosis. Successful primary stenting with excellent results with careful positioning using 3 x 12 mm Promus Premier drug-eluting stent. Echo of 10/10/19: LVEF 55-65%, mild enlargement of LA, RVSP 18 mmHg 30 day event monitor April 2019 showed an episode of 4 beat nonsustained ventricular tachycardia, asymptomatic at the time (subsequent cardiac cath as noted above) History of PVCs Hypertension Hyperlipidemia - reported intolerance to statin d/t myalgias Mild nonobstructive carotid artery stenosis per carotid duplex done in September 2018 Discussion and Recomendations Rate control with oral dilt Echocardiogram to eval structure and function OAC with Eliquis for stroke prophylaxis Monitor lab closely Further recs will be based on his hospital course We would like to thank medical services for this consult Clinical Quality Measures AMI/AHF: ASA po Prior to arrival: No DVT/VTE Risk/Contraindication: Risk Factor Score Per Nursin RFS Level Per Nursing on Admit: 2=Moderate TIFFANY GAO MD FACP FAC CCDS Oct 10, 2019 21:09 POS
[2019-10-11] VITALS (15 sets, daily range): BP systolic 104–136; BP diastolic 55–74
--- NOTE | 2019-10-11 03:42 | Pulmonary Consultation ---
History of Present Illness History of Present Illness Date of Admission Allergies and Home Medications Allergies Coded Allergies: enalapril (Verified Adverse Reaction, Unknown, cough, 06/17/16) Home Medications Apixaban 5 Mg Tablet, 5 MG PO BID Prescribed by: LOERTA DOUGLASS on 10/10/19 1359 Aspirin 81 Mg Tablet.dr, 81 MG PO HS, (Reported) Atorvastatin Calcium 10 Mg Tablet, 10 MG PO DAILY, (Reported) Diltiazem HCl 240 Mg Cap.er.24h, 240 MG PO DAILY@0900 Prescribed by: LORETA DOUGLASS on 10/10/19 1359 Garlic 500 Mg Capsule, 500 MG PO DAILY, (Reported) Losartan Potassium 50 Mg Tablet, 100 MG PO DAILY, (Reported) TAKES 2 (50MG) TABLETS Magnesium Oxide 500 Mg Capsule, 500 MG PO DAILY, (Reported) Multivit-Min/FA/Lycopene/Lut 1 Each Tablet, 1 TAB PO DAILY, (Reported) Naproxen Sodium 220 Mg Capsule, 440 MG PO DAILY PRN for PAIN-MILD (1-4), (Reported) TAKES 2 (220MG) CAPSULES Nebivolol HCl 20 Mg Tablet, 20 MG PO DAILY, (Reported) Niacinamide 500 Mg Tablet, 500 MG PO HS, (Reported) [place] 3 Polyunsat Fatty Acids 1,000 Mg Cap, 3,000 MG PO DAILY, (Reported) Omeprazole 20 Mg Capsule.dr, 20 MG PO DAILY, (Reported) Past [place]-Yrcdpq-Smsslk Hx Past Med/Social Hx: Reviewed Nursing Past Med/Soc Hx, Reviewed and Corrections made Patient Social History Alcohol Use: Occasionally Uses Recreational Drug Use: Yes Drug of Choice: POT Smoking Status: Never a Smoker Type Used: Cigarettes Former Smoker, Quit: Jun 17, 1980 2nd Hand Smoke Exposure: Yes Recent Foreign Travel: No Contact w/Someone Who Travel: No Recent Infectious Disease Expo: No Recent Hopitalizations: No Past Medical History Surgeries: Yes Coronary Stent Respiratory: No Currently Using CPAP: No Currently Using BIPAP: No Cardiac: No (PVC'S) Coronary Artery Disease, High Cholesterol, Hypertension Neurological: No Genitourinary: No Gastrointestinal: Yes Gastroesophageal Reflux Musculoskeletal: No Endocrine: No Cancer: No Psychosocial: No Integumentary: No Family Medical History Reviewed Nursing Family Hx Review of Systems Time Seen by Provider: 03:42 Sepsis Event Evaluation Height, Weight, BMI Height: 5'11.00" Weight: 161lbs. 0.0oz. 73.571231fw; 20.00 BMI Method:Stated Exam Exam Vital Signs Date Time Temp Pulse Resp B/P (MAP) Pulse Ox O2 Delivery O2 Flow Rate FiO2 10/11/19 01:00 37.1 10/11/19 01:00 60 10/11/19 00:00 98 Room Air 10/10/19 23:00 77 21 113/76 (88) 95 Room Air 10/10/19 22:00 78 21 118/76 (90) 95 Room Air 10/10/19 21:00 69 36 120/86 (97) 96 Room Air 10/10/19 20:01 37.5 10/10/19 20:00 98 Room Air 10/10/19 20:00 61 21 91/43 (59) 96 Room Air 10/10/19 19:00 60 10/10/19 19:00 60 18 87/54 (65) 96 Room Air 10/10/19 18:00 73 53 108/78 (88) 95 Room Air 10/10/19 17:00 80 98/65 (76) 96 Room Air 10/10/19 16:00 81 106/65 (79) 96 Room Air 10/10/19 16:00 36.8 10/10/19 16:00 98 Room Air 10/10/19 15:00 56 12 94/69 (77) 97 Room Air 10/10/19 14:19 97 Room Air 10/10/19 14:00 73 12 99/72 (81) 97 Room Air 10/10/19 13:00 78 19 103/67 (79) 98 Room Air 10/10/19 13:00 37.4 10/10/19 13:00 84 10/10/19 12:26 78 10/10/19 12:00 70 38 107/75 (86) 96 Room Air 10/10/19 12:00 98 Room Air 10/10/19 11:45 70 107/75 (86) 97 Room Air 10/10/19 11:37 67 16 110/73 98 Room Air 10/10/19 09:38 81 16 179/94 97 10/10/19 09:09 37.0 121 16 179/94 (122) 98 Room Air I & O 10/11/19 07:00 Intake Total 1700 ml Output Total 620 ml Balance 1080 ml Height & Weight Height: 5'11.00" Weight: 161lbs. 0.0oz. 73.519963th; 20.00 BMI Method:Stated General Appearance: No Apparent Distress HEENT: PERRL/EOMI, TMs Normal, Normal ENT Inspection, Pharynx Normal, Moist Mucous Membranes Neck: Full Range of Motion, Normal Inspection, Non Tender Respiratory: Chest Non Tender, Lungs Clear, Normal Breath Sounds, No Accessory Muscle Use, No Respiratory Distress Cardiovascular: No Edema, No Gallop, No JVD, No Murmur, Normal Peripheral Pulses, Irregularly Irregular, Tachycardia Capillary Refill: Less Than 3 Seconds Extremity: Normal Capillary Refill, Normal Inspection, Normal Range of Motion, Non Tender, No Calf Tenderness, No Pedal Edema Neurologic/Psychiatric: Alert, Oriented x3, No Motor/Sensory Deficits, Normal Mood/Affect Skin: Normal Color, Warm/Dry Lymphatic: No Adenopathy Results Lab Laboratory Tests 10/10/19 09:28 Assessment/Plan Assessment/Plan New onset AFib RVR-- now converted to sinus -Cardizem gtt is now off. He is on PO Cardizem -Cardiology following -Echo of 10/10/19: LVEF 55-65%, mild enlargement of LA, RVSP 18 mmHg CP CAD YSABEL SHARMA DO Oct 11, 2019 03:42 POS
[2019-10-11 04:04] LABS: BASOPHILS % (AUTO) 0 % (0-10); EOSINOPHILS # (AUTO) 0.1 10^3/uL (0.0-0.3); EOSINOPHILS % (AUTO) 1 % (0-10); HEMATOCRIT 44 % (40-54); HEMOGLOBIN 14.8 G/DL (13.3-17.7); LYMPHOCYTES # (AUTO) 1.6 X 10^3 (1.0-4.0); LYMPHOCYTES % (AUTO) 23 % (12-44); MEAN CORPUSCULAR HEMOGLOBIN 31 PG (25-34); MEAN CORPUSCULAR HGB CONC 34 G/DL (32-36); MEAN CORPUSCULAR VOLUME 92 FL (80-99); MONOCYTES # (AUTO) 0.9 X 10^3 (0.0-1.0); MONOCYTES % (AUTO) 12 % (0-12); NEUTROPHILS # (AUTO) 4.7 X 10^3 (1.8-7.8); NEUTROPHILS % (AUTO) 64 % (42-75); PLATELET COUNT 369 10^3/uL (130-400); RED CELL DISTRIBUTION WIDTH 11.7 % (10.0-14.5); WHITE BLOOD COUNT 7.2 10^3/uL (4.3-11.0)
[2019-10-11 04:24] LABS: ALANINE AMINOTRANSFERASE 15 U/L (0-55); ALBUMIN 3.4 GM/DL (3.2-4.5); ALKALINE PHOSPHATASE 58 U/L (40-136); BILIRUBIN,TOTAL 0.7 MG/DL (0.1-1.0); BUN/CREATININE RATIO 19; CALCIUM 8.6 MG/DL (8.5-10.1); CARBON DIOXIDE 23 MMOL/L (21-32); CHLORIDE 111 MMOL/L (98-107); CHOLESTEROL 107 MG/DL (< 200); CREATININE SERUM 0.69 MG/DL (0.60-1.30); GFR ESTIMATED > 60; GLUCOSE 94 MG/DL (70-105); HDL CHOLESTEROL 21 MG/DL (40-60); SODIUM 142 MMOL/L (135-145); TOTAL PROTEIN 5.4 GM/DL (6.4-8.2); TRIGLYCERIDES 96 MG/DL (<150); VLDL CHOLESTEROL 19 MG/DL (5-40)
[2019-10-11] MEDS ORDERED: VANCOMYCIN 1 GM/NS 250 ML IVPB IV SCH ×2 (06:30)
[2019-10-11] MEDS ORDERED: OMEGA 3 (FISH OIL) 1000 MG CAP PO SCH (07:00)
[2019-10-11] MEDS ORDERED: MAGNESIUM OXIDE (MAG-OX)400 MG TAB PO SCH (08:00)
[2019-10-11] MEDS: SENNA W/DOCUSATE (SENOKOT S) TABLET PO SCH (08:30)
[2019-10-11] MEDS: APIXABAN 5 MG (ELIQUIS) TABLET PO SCH (08:30)
[2019-10-11] MEDS: DILTIAZEM 125 MG/NS 100 ML IV SCH ×2 (08:30)
[2019-10-11] MEDS: NS IV 1000 ML 1,000 ML IV SCH (08:53)
[2019-10-11] MEDS ORDERED: DILTIAZEM 240 MG (CARDIZEM CD) CAP PO SCH ×2 (09:00)
[2019-10-11] MEDS ORDERED: PANTOPRAZOLE 20 MG TABLET (PROTONIX) PO SCH (09:00)
[2019-10-11] MEDS ORDERED: LOSARTAN 100 MG (COZAAR) TABLET PO SCH (09:00)
[2019-10-11] MEDS ORDERED: ASPIRIN 81 MG CHEW (CHILDREN'S ASA) PO SCH (09:00)
[2019-10-11] MEDS ORDERED: ATENOLOL 50 MG (TENORMIN) TAB PO SCH (09:00)
--- NOTE | 2019-10-11 10:32 | Discharge Summary ---
Discharge Summary Hospital Course Was the Problem List Reviewed?: Yes Problems/Dx: (1) Atrial fibrillation with rapid ventricular response Status: Acute (2) Chest pain Status: Acute Qualifiers: Qualified Codes: R07.9 - Chest pain, unspecified (3) HLP (4) HTN (hypertension) (5) CAD (coronary artery disease) Hospital Course Date of Admission: Oct 10, 2019 at 10:46 Admission Diagnosis : Family Physician/Provider: Kb Hi Date of Discharge: 10/11/19 Discharge Diagnosis: New onset AF w/RVR, CAD, HTN, HLP Hospital Course: Patient had an uneventful hospital course after admitted for AF w/RVR and Cardiology was consulted. OAC initiated along with Cardizem drip and patient converted to NSR thru the night and remained stable and picked up Rxes at [facility] the day before DC due to holiday and all pharmacies closed. He was ready for DC and Cardiology agreed. Labs and Pending Lab Test: Laboratory Tests 10/11/19 03:50: White Blood Count 7.2, Red Blood Count 4.75, Hemoglobin 14.8, Hematocrit 44, Mean Corpuscular Volume 92, Mean Corpuscular Hemoglobin 31, Mean Corpuscular Hemoglobin Concent 34, Red Cell Distribution Width 11.7, Platelet Count 369, Mean Platelet Volume 9.0, Neutrophils (%) (Auto) 64, Lymphocytes (%) (Auto) 23, Monocytes (%) (Auto) 12, Eosinophils (%) (Auto) 1, Basophils (%) (Auto) 0, Neutrophils # (Auto) 4.7, Lymphocytes # (Auto) 1.6, Monocytes # (Auto) 0.9, Eosinophils # (Auto) 0.1, Basophils # (Auto) 0.0, Sodium Level 142, Potassium Level 4.0, Chloride Level 111H, Carbon Dioxide Level 23, Anion Gap 8, Blood Urea Nitrogen 13, Creatinine 0.69, Estimat Glomerular Filtration Rate > 60, BUN/Creatinine Ratio 19, Glucose Level 94, Calcium Level 8.6, Corrected Calcium 9.1, Total Bilirubin 0.7, Aspartate Amino Transf (AST/SGOT) 14, Alanine Aminotransferase (ALT/SGPT) 15, Alkaline Phosphatase 58, Total Protein 5.4L, Albumin 3.4, Triglycerides Level 96, Cholesterol Level 107, LDL Cholesterol Direct 77, VLDL Cholesterol 19, HDL Cholesterol 21L, Thyroid Stimulating Hormone (TSH) 0.66 Home Meds Active Eliquis (Apixaban) 5 Mg Tablet 5 Mg PO BID Diltiazem 24Hr Cd (Diltiazem HCl) 240 Mg Cap.er.24h 240 Mg PO DAILY@0900 Reported Losartan Potassium 50 Mg Tablet 100 Mg PO DAILY TAKES 2 (50MG) TABLETS Omeprazole 20 Mg Capsule.dr 20 Mg PO DAILY Atorvastatin Calcium 10 Mg Tablet 10 Mg PO DAILY Niacin (Niacinamide) 500 Mg Tablet 500 Mg PO HS Aspirin EC (Aspirin) 81 Mg Tablet.dr 81 Mg PO HS Naproxen Sodium 220 Mg Capsule 440 Mg PO DAILY PRN TAKES 2 (220MG) CAPSULES Magnesium (Magnesium Oxide) 500 Mg Capsule 500 Mg PO DAILY Centrum Silver Tablet (Multivit-Min/FA/Lycopene/Lut) 1 Each Tablet 1 Tab PO DAILY Garlic 500 Mg Capsule 500 Mg PO DAILY Fish Oil 1,000 mg Capsule ([place] 3 Polyunsat Fatty Acids) 1,000 Mg Cap 3,000 Mg PO DAILY Bystolic (Nebivolol HCl) 20 Mg Tablet 20 Mg PO DAILY Assessment/Pt Instructions [facility] [address] Blackburn in 1 week Discharge Planning: <30 minutes discharge planning Discharge Instructions Discharge Diet: Cardiac Diet Pneumonia Vaccine Order Indica: Yes Discharge Physical Examination Vital Signs Vital Signs Date Time Temp Pulse Resp B/P (MAP) Pulse Ox O2 Delivery O2 Flow Rate FiO2 10/11/19 08:00 98 Room Air 10/11/19 08:00 61 112/67 (82) 10/11/19 07:00 22 10/11/19 01:00 37.1 General Appearance: No Apparent Distress, WD/WN Respiratory: Lungs Clear Cardiovascular: Regular Rate, Rhythm Neurologic/Psychiatric: Alert, Oriented x3, No Motor/Sensory Deficits, Normal Mood/Affect Allergies: Coded Allergies: enalapril (Verified Adverse Reaction, Unknown, cough, 06/17/16) Discharge Summary Date of Admission Oct 10, 2019 at 10:46 Date of Discharge Discharge Date: Oct 11, 2019 Admission Diagnosis Assessment: New-onset atrial fibrillation with rapid ventricular response Chest pain History of CAD Hypertension Hyperlipidemia GERD Plan: Rate control and hopefully converted with Cardizem Oral adequate coagulation for stroke prophylaxis Reconcile home meds Discharge Diagnosis (1) Atrial fibrillation with rapid ventricular response Status: Acute (2) Chest pain Status: Acute Qualifiers: Qualified Codes: R07.9 - Chest pain, unspecified (3) HLP (4) HTN (hypertension) (5) CAD (coronary artery disease) Clinical Quality Measures AMI/AHF: ASA po Prior to arrival: No DVT/VTE Risk/Contraindication: Risk Factor Score Per Nursin RFS Level Per Nursing on Admit: 2=Moderate LEOBARDO HERNANDEZ DO Oct 11, 2019 10:32 POS
--- NOTE | 2019-10-11 14:07 | Progress Note - Cardiology ---
Cardiology SOAP Progress Note Subjective: No cp or palp or syncope or shortness of breath Wishes to go home Objective: I&O/Vital Signs 10/11/19 10/11/19 10/11/19 10/11/19 03:00 04:00 04:00 05:00 Pulse 62 62 58 Resp 19 19 B/P (MAP) 117/69 (85) 117/69 (85) 108/64 (79) Pulse Ox 95 98 95 96 O2 Delivery Room Air Room Air Room Air Room Air 10/11/19 10/11/19 10/11/19 10/11/19 06:00 06:49 07:00 08:00 Pulse 60 61 61 61 Resp 19 22 B/P (MAP) 110/66 (81) 122/62 (82) 112/67 (82) Pulse Ox 95 98 96 O2 Delivery Room Air Room Air Room Air 10/11/19 10/11/19 10/11/19 10/11/19 08:00 09:00 10:00 11:00 Pulse 61 66 Resp 19 B/P (MAP) 109/68 (82) 136/74 (94) 120/71 (87) Pulse Ox 98 97 98 99 O2 Delivery Room Air Room Air Room Air Room Air 10/11/19 10/11/19 12:00 14:00 Temp 37.2 Pulse 66 76 Resp 24 12 B/P (MAP) 109/55 (73) 119/69 Pulse Ox 96 95 O2 Delivery Room Air Room Air 10/11/19 00:00 Intake Total 1600 ml Output Total 620 ml Balance 980 ml Weight (Pounds): 161 Weight (Ounces): 0.0 Weight (Calculated Kilograms): 73.742785 Constitutional: AAO x 3, well-developed, well-nourished Respiratory: No accessory muscle use, No respiratory distress; chest expansion is symmetric, chest is bilaterally symmetric, lungs clear to auscultation, other (approx quarter sized protrusion at the tip of the sternum) Cardiovascular: irregularly irregular; No JVD; S1 and S2 Gastrointestional: No tender; soft, round, audible bowel sounds Extremities: no lower extremity edema bilateral Neurologic/Psychiatric: grossly intact Skin: No rash on exposed areas, No ulcerations on exposed areas Results/Procedures: Labs Laboratory Tests 10/11/19 03:50: White Blood Count 7.2, Red Blood Count 4.75, Hemoglobin 14.8, Hematocrit 44, Mean Corpuscular Volume 92, Mean Corpuscular Hemoglobin 31, Mean Corpuscular Hemoglobin Concent 34, Red Cell Distribution Width 11.7, Platelet Count 369, Mean Platelet Volume 9.0, Neutrophils (%) (Auto) 64, Lymphocytes (%) (Auto) 23, Monocytes (%) (Auto) 12, Eosinophils (%) (Auto) 1, Basophils (%) (Auto) 0, Neutrophils # (Auto) 4.7, Lymphocytes # (Auto) 1.6, Monocytes # (Auto) 0.9, Eosinophils # (Auto) 0.1, Basophils # (Auto) 0.0, Sodium Level 142, Potassium Level 4.0, Chloride Level 111H, Carbon Dioxide Level 23, Anion Gap 8, Blood Urea Nitrogen 13, Creatinine 0.69, Estimat Glomerular Filtration Rate > 60, BUN/Creatinine Ratio 19, Glucose Level 94, Calcium Level 8.6, Corrected Calcium 9.1, Total Bilirubin 0.7, Aspartate Amino Transf (AST/SGOT) 14, Alanine Aminotransferase (ALT/SGPT) 15, Alkaline Phosphatase 58, Total Protein 5.4L, Albumin 3.4, Triglycerides Level 96, Cholesterol Level 107, LDL Cholesterol Direct 77, VLDL Cholesterol 19, HDL Cholesterol 21L, Thyroid Stimulating Hormone (TSH) 0.66 Laboratory Tests 10/10/19 09:28 10/11/19 03:50 A/P: Assessment: New onset a-fib with RVR (first diagnosed 10-10-19 ED visit on EKG). This is the likely cause of his recent palpitations. He is currently in NSR Recent viral illness for approx 14 days with reported fever and chills - resolved CAD - Cardiac cath of Aug 15, [address] Blackburn showed Mild coronary artery disease nonobstructive disease. Normal left ventricular end-diastolic pressure. Previous cardiac catheterization June 17, 2016 revealing proximal/ostial left circumflex 80% eccentric stenosis. Successful primary stenting with excellent results with careful positioning using 3 x 12 mm Promus Premier drug-eluting stent. Echo of 10/10/19: LVEF 55-65%, mild enlargement of LA, RVSP 18 mmHg 30 day event monitor April 2019 showed an episode of 4 beat nonsustained ventricular tachycardia, asymptomatic at the time (subsequent cardiac cath as noted above) History of PVCs Hypertension Hyperlipidemia - reported intolerance to statin d/t myalgias Mild nonobstructive carotid artery stenosis per carotid duplex done in September 2018 Plan: * I had a long and detailed discussion with him regarding potential etiologies of A Fib * We also discussed treatment options * He wishes to stay with the current plan of conservative therapy of which we reviewed pros and cons * We advised compliance with meds * We advised outpt f/u with 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
[2019-10-12] MEDS ORDERED: TROUGH ORDER-PHARMACY XX NR (05:30)
== END 2019-10-11 14:02 | disposition home or self-care (01) | DRG 310 ==
LOC: EDUNIT# 09:09 → ER 09:10 → ICU 10:46
PROVIDERS: ADMIT Internal Medicine; ATTEND Internal Medicine
DX: I48.91 Unspecified atrial fibrillation (principal); I25.10 Atherosclerotic heart disease of native coronary artery without angina pectoris; E78.00 Pure hypercholesterolemia, unspecified; I10 Essential (primary) hypertension; K21.9 Gastro-esophageal reflux disease without esophagitis; E78.5 Hyperlipidemia, unspecified; Z23 Encounter for immunization; Z87.891 Personal history of nicotine dependence; Z95.9 Presence of cardiac and vascular implant and graft, unspecified; Z79.82 Long term (current) use of aspirin
CPT/HCPCS: 36415; 71045; 80053; 80061; 83735; 83874; 83880; 84443; 84484; 85025; 85610; 85730; 87081; 90732; 93005; 93041; 93306

== ENCOUNTER → 2019-11-21 | Day surgery (SDC) | payer MEDICARE, MEDICAID ==
[~2019-11-21] VITALS: Ht 180 cm; Wt 70.0 kg
[~2019-11-21] MED LIST changes: +APIX5TAB PO; +ATOR10TA66 PO; +DILT240C97 PO; +LIDOCAINE 1% INJ 20 ML 20 ML VIAL INJ ONE; +LIDOCAINE 1% INJ 20 ML 20 ML VIAL ONE; +OMEP20CA13 PO
[2019-11-21 08:49] VITALS: BP 144/71
--- NOTE | 2019-11-21 09:28 | Implantation of Loop Monitor ---
Implant of Loop Monitior IMPLANTATION OF LOOP MONITOR REPORT DATE OF PROCEDURE: 11/21/19 PREOP DIAGNOSIS: proximal atrial fibrillation POSTOP DIAGNOSIS: paroxysmal atrial fibrillation PROCEDURE DETAILS: The patient is a 69 male with history of paroxysmal atrial fibrillation requiring long-term surveillance. Therefore implantable loop recorder was discussed and agreed with the patient. Informed consent was taken. All risks and complications were discussed at length. The patient was draped and prepped in the usual sterile fashion. Local anesthesia was lidocaine, which was given in the substernal area close to the 4th intercostal space. Loop monitor [id number] [id number] implanted according to the protocol. Steri-Strips were placed at the end of the procedure. There were no complications and the patient tolerated the procedure well. The device was interrogated with a voltage of. ANESTHESIA: Local anesthesia with lidocaine. COMPLICATIONS: None CONTRAST/FLUOROSCOPY: None CONCLUSION: successful implantation of a loop recorder with no complication FINAL DIAGNOSIS: Paroxysmal atrial fibrillation Nonsustained ventricular tachycardia Coronary artery disease Hypertension DAYANNA BATISTA MD Nov 21, 2019 09:28
== END ==
LOC: CATH 08:38
PROVIDERS: ATTEND Internal Medicine Cardiovascular Disease
DX: I48.0 Paroxysmal atrial fibrillation (principal); I25.10 Atherosclerotic heart disease of native coronary artery without angina pectoris; I47.2 Ventricular tachycardia; I10 Essential (primary) hypertension; E78.5 Hyperlipidemia, unspecified; Z79.899 Other long term (current) drug therapy; Z79.82 Long term (current) use of aspirin; Z79.01 Long term (current) use of anticoagulants; Z87.891 Personal history of nicotine dependence; Z88.8 Allergy status to other drugs, medicaments and biological substances; Z82.49 Family history of ischemic heart disease and other diseases of the circulatory system; Z80.9 Family history of malignant neoplasm, unspecified; Z82.3 Family history of stroke
CPT/HCPCS: 33285

== ENCOUNTER 2020-04-22 07:45 | Observation (INO) | payer MEDICARE, MEDICAID ==
[~2020-04-22] VITALS: Ht 180.3 cm; Wt 68.0 kg
[~2020-04-22 07:45] MED LIST changes: +DILT240C92 PO; -DILT240C97 PO; -GARL500C PO; +GARL500C2 PO; -LIDOCAINE 1% INJ 20 ML 20 ML VIAL INJ ONE; -LIDOCAINE 1% INJ 20 ML 20 ML VIAL ONE; -OMEP20CA13 PO; +OMEP20CA18 PO
[2020-04-22 08:08] LABS: BASOPHILS # (AUTO) 0.1 10^3/uL (0.0-0.1); BASOPHILS % (AUTO) 1 % (0-10); EOSINOPHILS # (AUTO) 0.1 10^3/uL (0.0-0.3); EOSINOPHILS % (AUTO) 2 % (0-10); HEMATOCRIT 50 % (40-54); HEMOGLOBIN 16.9 G/DL (13.3-17.7); LYMPHOCYTES # (AUTO) 1.8 X 10^3 (1.0-4.0); LYMPHOCYTES % (AUTO) 27 % (12-44); MEAN CORPUSCULAR HEMOGLOBIN 31 PG (25-34); MEAN CORPUSCULAR HGB CONC 34 G/DL (32-36); MEAN CORPUSCULAR VOLUME 91 FL (80-99); MEAN PLATELET VOLUME 10.3 FL (7.4-10.4); MONOCYTES # (AUTO) 0.7 X 10^3 (0.0-1.0); MONOCYTES % (AUTO) 11 % (0-12); NEUTROPHILS # (AUTO) 4.1 X 10^3 (1.8-7.8); NEUTROPHILS % (AUTO) 60 % (42-75); PLATELET COUNT 224 10^3/uL (130-400); RED CELL DISTRIBUTION WIDTH 12.2 % (10.0-14.5); WHITE BLOOD COUNT 6.8 10^3/uL (4.3-11.0)
[2020-04-22] MEDS ORDERED: ASPIRIN 81 MG CHEW (CHILDREN'S ASA) ONE (08:17)
[2020-04-22 08:28] LABS: ALBUMIN 4.8 GM/DL (3.2-4.5); CHLORIDE 107 MMOL/L (98-107); INR 1.3 (0.8-1.4); POTASSIUM 4.5 MMOL/L (3.6-5.0); PROTHROMBIN TIME PATIENT 17.2 SEC (12.2-14.7); SODIUM 140 MMOL/L (135-145)
[2020-04-22 08:30] LABS: GLUCOSE 124 MG/DL (70-105)
[2020-04-22] MEDS ORDERED: ASPIRIN 81 MG CHEW (CHILDREN'S ASA) PO ONE (08:30)
[2020-04-22 08:31] LABS: TOTAL PROTEIN 7.6 GM/DL (6.4-8.2)
[2020-04-22 08:32] LABS: BILIRUBIN,TOTAL 1.1 MG/DL (0.1-1.0); CARBON DIOXIDE 21 MMOL/L (21-32)
[2020-04-22 08:34] LABS: ALKALINE PHOSPHATASE 59 U/L (40-136); CREATININE SERUM 1.11 MG/DL (0.60-1.30); GFR ESTIMATED > 60
[2020-04-22 08:35] LABS: BUN/CREATININE RATIO 23
[2020-04-22 08:37] LABS: ALANINE AMINOTRANSFERASE 22 U/L (0-55)
[2020-04-22 08:38] LABS: MAGNESIUM 2.1 MG/DL (1.6-2.4)
--- NOTE | 2020-04-22 08:45 | Diagnostic Imaging Report ---
INDICATION: Chest pressure and pain Frontal chest obtained at 0822 a.m. and compared to 10/10/2019. Heart and mediastinal silhouette are normal in appearance. The lungs are clear. There is no pneumothorax or pleural fluid. IMPRESSION: Negative chest. Dictated by: Dictated on workstation # [id number]
--- NOTE | 2020-04-22 12:47 | ED Chest Pain ---
General Chief Complaint: Chest Pain Stated Complaint: CHEST PAIN Nursing Triage Note: AMB TO ROOM APX 7AM TO TODAY WAS GETTING READY FOR WORK HAD PRESSURE IN CENTER OF CHEST, GONE ON ADMIT. STATES THAT HAS SAME EPISODES ABOUT 1 MONTH AGO Nursing Sepsis Screen: No Definite Risk Source: patient Exam Limitations: no limitations History of Present Illness Date Seen by Provider: Apr 22, 2020 Time Seen by Provider: 07:44 Initial Comments This 69-year-old gentleman presents to the emergency room with complaints of chest pressure that started around 07:00. He had a similar episode about one month ago. Pain resolved by the time of this assessment. He has history of mild coronary artery disease. He has one stent previously and had a cardiac catheterization in August of last year revealing no obstructive disease. He reports having episodes like this in the past that usually occur in the morning. He does have history of acid reflux. He denies any risk factors for [place] virus infection. He has no cough, shortness of breath, or fever. Allergies and Home Medications Allergies Coded Allergies: enalapril (Verified Adverse Reaction, Unknown, cough, 06/17/16) Home Medications Apixaban 5 Mg Tablet, 5 MG PO BID, (Reported) Atorvastatin Calcium 10 Mg Tablet, 10 MG PO DAILY, (Reported) Diclofenac Sodium 75 Mg Tablet.dr, 75 MG PO BID, (Reported) Diltiazem HCl 240 Mg Cap.er.24h, 240 MG PO DAILY, (Reported) Flecainide Acetate 50 Mg Tablet, 50 MG PO BID, (Reported) Garlic 500 Mg Capsule, 500 MG PO DAILY, (Reported) Losartan Potassium 50 Mg Tablet, 100 MG PO DAILY, (Reported) TAKES 2 (50MG) TABLETS Magnesium Oxide 500 Mg Capsule, 500 MG PO DAILY, (Reported) Multivit-Min/FA/Lycopene/Lut 1 Each Tablet, 1 TAB PO DAILY, (Reported) Nebivolol HCl 20 Mg Tablet, 20 MG PO DAILY, (Reported) Niacinamide 500 Mg Tablet, 1,000 MG PO DAILY, (Reported) TAKES 2 (500MG) TABS [place] 3 Polyunsat Fatty Acids 1,000 Mg Cap, 3,000 MG PO DAILY, (Reported) Omeprazole 20 Mg Capsule.dr, 20 MG PO DAILY, (Reported) Patient Home Medication List Home Medication List Reviewed: Yes Review of Systems Review of Systems Constitutional: no symptoms reported EENTM: No Symptoms Reported Respiratory: No Symptoms Reported Cardiovascular: See HPI Gastrointestinal: No Symptoms Reported Genitourinary: No Symptoms Reported Musculoskeletal: no symptoms reported Skin: no symptoms reported Psychiatric/Neurological: No Symptoms Reported Endocrine: No Symptoms Reported Hematologic/Lymphatic: No Symptoms Reported Past Vwgfqzn-Xzmfpy-Wxhthi Hx Past Med/Social Hx: Reviewed Nursing Past Med/Soc Hx Patient Social History Alcohol Use: Occasionally Uses Recreational Drug Use: Yes (beer daily) Drug of Choice: POT Smoking Status: Former Smoker Type Used: Cigarettes Former Smoker, Quit: Jun 17, 1980 2nd Hand Smoke Exposure: Yes Recent Foreign Travel: No Contact w/Someone Who Travel: No Recent Infectious Disease Expo: No Recent Hopitalizations: No Immunizations Up To Date Tetanus Booster (TDap): More than 5yrs Date of Pneumonia Vaccine: Sep 21, 2019 Date of Influenza Vaccine: Sep 21, 2019 Past Medical History Surgeries: Yes Coronary Stent Respiratory: No Currently Using CPAP: No Currently Using BIPAP: No Cardiac: No (PVC'S) Coronary Artery Disease, High Cholesterol, Hypertension Neurological: No Genitourinary: No Gastrointestinal: Yes Gastroesophageal Reflux Musculoskeletal: No Endocrine: No Cancer: No Psychosocial: No Integumentary: No Physical Exam Vital Signs Vital Signs - First Documented 04/22/20 07:45 Temp 36.0 Pulse 70 Resp 18 B/P (MAP) 198/100 (132) Pulse Ox 98 O2 Delivery Room Air Capillary Refill : Less Than 3 Seconds Height, Weight, BMI Height: 5'11.00" Weight: 161lbs. 0.0oz. 73.916085su; 20.00 BMI Method:Stated General Appearance: No Apparent Distress, WD/WN, Thin HEENT: PERRL/EOMI, Normal ENT Inspection Neck: Normal Inspection Respiratory: Chest Non Tender, Lungs Clear, Normal Breath Sounds, No Accessory Muscle Use, No Respiratory Distress Cardiovascular: Regular Rate, Rhythm, No Edema, No Murmur Gastrointestinal: Normal Bowel Sounds, Non Tender, Soft Extremity: Normal Inspection, Non Tender, No Calf Tenderness, No Pedal Edema Neurologic/Psychiatric: Alert, Oriented x3, No Motor/Sensory Deficits, Normal Mood/Affect Skin: Normal Color, Warm/Dry Progress/Results/Core Measures Results/Orders Lab Results Laboratory Tests Test 04/22/20 07:58 04/22/20 11:30 Range/Units White Blood Count 6.8 4.3-11.0 10^3/uL Red Blood Count 5.47 4.35-5.85 10^6/uL Hemoglobin 16.9 13.3-17.7 G/DL Hematocrit 50 40-54 % Mean Corpuscular Volume 91 80-99 FL Mean Corpuscular Hemoglobin 31 25-34 PG Mean Corpuscular Hemoglobin Concent 34 32-36 G/DL Red Cell Distribution Width 12.2 10.0-14.5 % Platelet Count 224 130-400 10^3/uL Mean Platelet Volume 10.3 7.4-10.4 FL Neutrophils (%) (Auto) 60 42-75 % Lymphocytes (%) (Auto) 27 12-44 % Monocytes (%) (Auto) 11 0-12 % Eosinophils (%) (Auto) 2 0-10 % Basophils (%) (Auto) 1 0-10 % Neutrophils # (Auto) 4.1 1.8-7.8 X 10^3 Lymphocytes # (Auto) 1.8 1.0-4.0 X 10^3 Monocytes # (Auto) 0.7 0.0-1.0 X 10^3 Eosinophils # (Auto) 0.1 0.0-0.3 10^3/uL Basophils # (Auto) 0.1 0.0-0.1 10^3/uL Prothrombin Time 17.2 H 12.2-14.7 SEC INR Comment 1.3 0.8-1.4 Activated Partial Thromboplast Time 47 H 24-35 SEC Sodium Level 140 135-145 MMOL/L Potassium Level 4.5 3.6-5.0 MMOL/L Chloride Level 107 98-107 MMOL/L Carbon Dioxide Level 21 21-32 MMOL/L Anion Gap 12 5-14 MMOL/L Blood Urea Nitrogen 25 H 7-18 MG/DL Creatinine 1.11 0.60-1.30 MG/DL Estimat Glomerular Filtration Rate > 60 BUN/Creatinine Ratio 23 Glucose Level 124 H 70-105 MG/DL Calcium Level 10.0 8.5-10.1 MG/DL Corrected Calcium 8.5-10.1 MG/DL Magnesium Level 2.1 1.6-2.4 MG/DL Total Bilirubin 1.1 H 0.1-1.0 MG/DL Aspartate Amino Transf (AST/SGOT) 21 5-34 U/L Alanine Aminotransferase (ALT/SGPT) 22 0-55 U/L Alkaline Phosphatase 59 40-136 U/L Myoglobin 41.2 10.0-92.0 NG/ML Troponin I < 0.028 0.049 H <0.028 NG/ML Total Protein 7.6 6.4-8.2 GM/DL Albumin 4.8 H 3.2-4.5 GM/DL My Orders Orders - CHRISTY JARQUIN MD Cbc With Automated Diff (04/22/20 07:52) Magnesium (04/22/20 07:52) Chest 1 View, Ap/Pa Only (04/22/20 07:52) Ekg Tracing (04/22/20 07:52) Comprehensive Metabolic Panel (04/22/20 07:52) Myoglobin Serum (04/22/20 07:52) Protime With Inr (04/22/20 07:52) Partial Thromboplastin Time (04/22/20 07:52) O2 (04/22/20 07:52) Monitor-Rhythm Ecg Trace Only (04/22/20 07:52) Lipid Panel (04/23/20 06:00) Ed Iv/Invasive Line Start (04/22/20 07:52) Troponin I (04/22/20 07:52) Aspirin Chewable Tablet (Baby Aspirin Ch (04/22/20 08:30) Aspirin Chewable Tablet (Baby Aspirin Ch (04/22/20 08:17) Troponin I (04/22/20 11:00) Medications Given in ED Current Medications Medications Dose Ordered Sig/G[place]alo Route Start Time Stop Time Status Last Admin Dose Admin Aspirin 243 mg ONCE ONCE PO 04/22/20 08:30 04/22/20 08:31 DC 04/22/20 08:25 243 MG Vital Signs/I&O 04/22/20 07:45 Temp 36.0 Pulse 70 Resp 18 B/P (MAP) 198/100 (132) Pulse Ox 98 O2 Delivery Room Air Blood Pressure Mean: 132 Progress Progress Note : Time: 12:43 Progress Note She was given aspirin upon arrival. He denied any chest pain and remained free of chest pain throughout his ER stay. A troponin was repeated 4 hours after onset of pain and was bumped. Dr. Blackburn was consulted and patient was admitted to Dr. Fisher. Dr. Blackburn requested Eliquis to be held in anticipation of procedures. Initial ECG Impression Date: Apr 22, 2020 Initial ECG Impression Time: 07:46 Initial ECG Rate: 62 Initial ECG Rhythm: Normal Sinus Initial ECG Intervals: Normal Initial ECG Impression: Normal Comment Normal sinus rhythm with no ST elevation or depression. No abnormal intervals or axis deviation. Diagnostic Imaging Diagonstic Imaging: Xray Plain Films/CT/US/NM/MRI: chest Comments NAME: STEW LUCAS [facility] REC#: [id number] PT STATUS: REG ER : 1950 PHYSICIAN: CHRISTY JARQUIN MD ADMIT DATE: 04/22/20/ER Signed Date of Exam:04/22/20 CHEST 1 VIEW, AP/PA ONLY INDICATION: Chest pressure and pain Frontal chest obtained at 0822 a.m. and compared to 10/10/2019. Heart and mediastinal silhouette are normal in appearance. The lungs are clear. There is no pneumothorax or pleural fluid. IMPRESSION: Negative chest. Dictated by: Dictated on workstation # [id number] Dict: 04/22/20 [id number] Trans: 04/22/20 1222 [facility] [id number] Interpreted by: CLARKE MCNEILL MD Electronically signed by: CLARKE MCNEILL MD 04/22/20 1222 Departure Communication (Admissions) Time/Spoke to Admitting Phy: 12:39 Dr. Fisher Time/Spoke to Consulting Phy: 12:36 Dr. Blackburn Impression Primary Impression: Non-ST elevation MD (NSTEMI) Disposition: ADMITTED INPATIENT Condition: Improved Admissions Decision to Admit Reason: Admit from ER (General) Decision to Admit/Date: Apr 22, 2020 Time/Decision to Admit Time: 12:30 Departure-Patient Inst. Referrals: [facility][1[facility] [place]) Primary Care Physician MATEO JOSÉ (Family) Primary Care Physician CHRISTY JARQUIN MD Apr 22, 2020 12:46
[2020-04-22] MEDS ORDERED: morphine INJ 4 MG/ML 1 ML (VIAL/SYRINGE) IV PRN (14:15)
[2020-04-22] MEDS ORDERED: ONDANSETRON 4 MG/2 ML (SDV) Z0FRAN IVP PRN (14:15)
[2020-04-22] MEDS ORDERED: NITROGLYCERIN 0.4 MG SL TABS BTL 25'S SL PRN (14:15)
--- OUTSIDE RECORDS SUMMARY | 2020-04-22 15:58 | XMS REPORT ---
Author Author Sarmad BATEMAN Organization [facility] [place] Address [address] [place] [address] Care Team Providers Care Road Machine Runner Name Role Phone ADI BATEMAN Unavailable PROBLEMS Type Condition ICD9-CM Code [id number] Code Onset Dates Condition S tatus SNOMED Code Problem Other chronic pain G89.29 Active 8 8067704 Problem Hyperlipidemia, unspecified E78.5 Ac tive 98936778 Problem Atrial fibrillation, controlled I48.91 Active 159479872 Problem Hypertension, benign I10 Active 05300648 Problem Coronary artery disease invo lving [place] coronary artery of [place] heart without angina pectoris I25.10 Active 1641 523672771 Problem Chronic fatigue R53.82 Active 8422 9001 Problem Other chronic pain G89.29 Active 8 [id number] ALLERGIES No Information ENCOUNTERS Encounter Location Date Diagnosis [place] [address] [address] Nov, [place] [address] [address] Oct, [place] [address] [address] Oct, Atrial fibrillation, controlled I48.91 a nd Coughing R05 [place] [address] [address] Sep, [place] [address] [address] Sep, [place] [address] [address] Aug, [place] [address] [address] May, Hypertension, benign I10 ; Hyperlipidemi a, unspecified E78.5 ; Chronic fatigue R53.82 and Near syncope R55 [place] [address] [address] May, [place] [address] [address] March, Colon cancer screening Z12.11 [place] [address] [address] March, Bilateral otitis media with effusion H65 .93 ; Chronic fatigue R53.82 ; Other chronic pain G89.29 and Pain in left shoulder M25.512 [place] [address] [address] March, Hypertension, benign I10 ; Hyperlipidemi a, unspecified E78.5 and Coronary artery disease involving [place] coronary artery of [place] heart without angina pectoris I25.10 [place] [address] [address] Sep, [place] [address] [address] May, Coronary artery disease involving [place] coronary artery of [place] heart without angina pectoris I25.10 and Hypertension, benign I10 [place] [address] [address] May, [place] [address] [address] Feb, Pain in left shoulder M25.512 [place] [address] [address] Jan, Pain in left shoulder M25.512 [place] [address] [address] Dec, [place] [address] [address] Dec, Pain in left shoulder M25.512 [place] [address] [address] Nov, Pain in left shoulder M25.512 [facility] [place] [address] [address] Nov, Labyrinthitis of both ears H83.03 and Th roat mass R22.1 [facility] [place] [address] [address] 08 Nov, 2017 Mass of right side of neck R22.1 [place] [address] [address] Oct, Pain in left shoulder M25.512 [place] [address] [address] Oct, Hypertension, benign I10 ; Orthostatic h ypotension I95.1 and Polyuria R35.8 [place] [address] [address] Oct, Hypertension, benign I10 [place] [address] [address] Aug, Hypertension, benign I10 ; Other chronic pain G89.29 and Pain in left shoulder M25.512 [place] [address] [address] Jul, [place] [address] [address] Jan, Other chronic pain G89.29 and Pain in le ft shoulder M25.512 [place] [address] [address] Nov, Other chronic pain G89.29 [place] [address] [address] Nov, [place] [address] [address] March, Hypertension, benign I10 ; Pain in left shoulder M25.512 and Hip pain, left M25.552 [place] [address] [address] Aug, HTN (hypertension) 401.9 [facility] [address] [place] [id number] [place] [address] Aug, [facility] [address] [place] [id number] [place] [address] Jul, HTN (hypertension) 401.9 ; Hyperlipidemi a 272.4 ; Seborrheic keratoses 702.19 and Skin tag 701.9 [facility] [address] [place] [address] [id number] [place] [address] Feb, [facility] [address] [place] [address] [id number] [place] [address] Feb, [facility] [address] [address] Aug, [facility] [address] [place] [id number] [place] [address] Aug, [facility] [address] [place] [id number] [place] [address] May, [facility] [address] [place] [address] [id number] [place] [address] May, [facility] [address] [place] [id number] [place] [address] Apr, [facility] [address] [place] [address] [id number] [place] [address] Apr, [facility] [address] [place] [address] [id number] [place] [address] Apr, [facility] [address] [place] [address] [id number] [place] [address] Apr, [facility] [address] [place] [id number] [place] [address] Apr, [facility] [address] [place] [address] [id number] [place] [address] Apr, [facility] [address] [place] [id number] [place] [address] Apr, [facility] [place] [address] [place] [id number] [place] [address] March, [facility] [place] [address] [place] [id number] [place] [address] March, [facility] [place] [address] [place] [id number] [place] [address] Feb, [facility] [place] [address] [place] [id number] [place] [address] Feb, [facility] [place] [address] [place] [id number] [place] [address] Oct, [facility] [place] [address] [place] [id number] [place] [address] Oct, [facility] [place] [address] [place] [id number] [place] [address] Oct, [facility] [place] [address] [place] [address] [id number] [place] [address] Aug, [facility] [place] [address] [place] [address] [id number] [place] [address] Aug, [facility] [place] [address] [place] [address] [id number] [place] [address] Aug, [facility] [place] [address] [place] [address] [id number] [place] [address] Aug, [facility] [place] [address] [place] [address] [id number] [place] [address] Aug, [facility] [place] [address] [place] [address] [id number] [place] [address] Aug, [facility] [place] [address] [place] [id number] [place] [address] Aug, [facility] [place] [address] [place] [address] [id number] [place] [address] May, IMMUNIZATIONS No Known Immunizations SOCIAL HISTORY Never Assessed REASON FOR VISIT PLAN OF CARE VITAL SIGNS MEDICATIONS Unknown Medications RESULTS No Results PROCEDURES No Known procedures INSTRUCTIONS MEDICATIONS ADMINISTERED No Known Medications MEDICAL (GENERAL) HISTORY Type Description Date Medical History angina-managed by [facility] Medical History coronary artery disease Medical History gastroesophageal reflux disease (GERD) Medical History epididymitis Medical History hypertension Medical History hyperlipidemia Medical History osteoarthritis Surgical History dental surgery Surgical History Stint Jun 2016 Hospitalization History Ulcer, hospitalized for one week 199 7 Hospitalization History Surgery 2016
--- OUTSIDE RECORDS SUMMARY | 2020-04-22 15:58 | XMS REPORT ---
Author Author Sarmad THURMAN Organization [facility] Address [address] [place] [address] Care Team Providers Care Package Crimper Name Role Phone ARMANDO THURMAN Unavailable PROBLEMS Type Condition ICD9-CM Code UWV42-SN Code Onset Dates Condition S tatus SNOMED Code Problem Other chronic pain G89.29 Active 8 9056736 Problem Hyperlipidemia, unspecified E78.5 Ac tive 49171143 Problem Atrial fibrillation, controlled I48.91 Active 795466914 Problem Hypertension, benign I10 Active 42567227 Problem Coronary artery disease invo lving [place] coronary artery of [place] heart without angina pectoris I25.10 Active 1641 736536856 Problem Chronic fatigue R53.82 Active 8422 9001 Problem Other chronic pain G89.29 Active 8 4734057 ALLERGIES No Information ENCOUNTERS Encounter Location Date Diagnosis [facility] [address] [facility] [id number] [address] [place] [address] Apr, [facility] [address] [facility] [id number] [address] [place] [address] Nov, [facility] [address] [facility] [id number] [address] [place] [address] Oct, [facility] [address] [facility] [id number] [address] [place] [address] Oct, Atrial fibrillation, control led I48.91 and Coughing R05 [facility] [address] [facility] [id number] [address] [place] [address] Sep, [facility] [address] [facility] [id number] [address] [place] [address] Sep, [facility] [address] [facility] [id number] [address] [place] [address] Aug, [place] [address] [id number] [address] [place] [address] May, Hypertension, benign I10 ; H yperlipidemia, unspecified E78.5 ; Chronic fatigue R53.82 and Near syncope R55 [place] [address] [id number] [address] [place] [address] May, [place] [address] [facility] [id number] [address] [place] [address] March, Colon cancer screening Z12.1 1 [place] [address] [facility] [id number] [address] [place] [address] March, Bilateral otitis media with effusion H65.93 ; Chronic fatigue R53.82 ; Other chronic pain G89.29 and Pain in left shoulder M25.512 [place] [address] [facility] [id number] [address] [place] [address] March, Hypertension, benign I10 ; H yperlipidemia, unspecified E78.5 and Coronary artery disease involving [place] coronary artery of [place] heart without angina pectoris I25.10 [place] [address] [id number] [address] [place] [address] Sep, [place] [address] [facility] [id number] [address] [place] [address] May, Coronary artery disease invo lving [place] coronary artery of [place] heart without angina pectoris I25.10 and Hypertension, benign I10 [place] [address] [id number] [address] [place] [address] May, [place] [address] [id number] [address] [place] [address] Feb, Pain in left shoulder M25.51 2 [place] [address] [facility] [id number] [address] [place] [address] 14 Jan, 2018 Pain in left shoulder M25.51 2 [place] [address] [facility] [id number] [address] [place] [address] 14 Dec, 2017 [facility] [address] [facility] [id number] [address] [place] [address] 14 Dec, 2017 Pain in left shoulder M25.51 2 [facility] [address] [facility] [id number] [address] [place] [address] 24 Nov, 2017 Pain in left shoulder M25.51 2 [facility] [address] [place] [id number] [address] [place] [address] 19 Nov, 2017 Labyrinthitis of both ears H 83.03 and Throat mass R22.1 [facility] [address] [facility] [id number] [address] [place] [address] 08 Nov, 2017 Mass of right side of neck R 22.1 [facility] [address] [place] [id number] [address] [place] [address] 13 Oct, 2017 Pain in left shoulder M25.51 2 [facility] [address] [place] [id number] [address] [place] [address] 08 Oct, 2017 Hypertension, benign I10 ; O rthostatic hypotension I95.1 and Polyuria R35.8 [facility] [address] [place] [id number] [address] [place] [address] 08 Oct, 2017 Hypertension, benign I10 [facility] [address] [place] [id number] [address] [place] [address] 19 Aug, 2017 Hypertension, benign I10 ; O ther chronic pain G89.29 and Pain in left shoulder M25.512 [facility] [address] [facility] [id number] [address] [place] [address] Jul, [facility] [address] [place] [id number] [address] [place] [address] 14 Jan, 2017 Other chronic pain G89.29 an d Pain in left shoulder M25.512 [facility] [address] [place] [id number] [address] [place] [address] Nov, Other chronic pain G89.29 [facility] [address] [place] [id number] [address] [place] [address] Nov, [facility] [address] [id number] [address] [place] [address] March, Hypertension, benign I10 ; P ain in left shoulder M25.512 and Hip pain, left M25.552 [facility] [address] [facility] [id number] [address] [place] [address] Aug, HTN (hypertension) 401.9 [facility] [address] [facility] [id number] [address] [place] [address] Aug, [facility] [address] [facility] [id number] [address] [place] [address] Jul, HTN (hypertension) 401.9 ; H yperlipidemia 272.4 ; Seborrheic keratoses 702.19 and Skin tag 701.9 [facility] [address] [facility] [id number] [address] [place] [address] Feb, [facility] [address] [facility] [id number] [address] [place] [address] Feb, [facility] [address] [facility] [id number] [address] [place] [address] Aug, [facility] [address] [facility] [id number] [address] [place] [address] Aug, [facility] [address] [facility] [id number] [address] [place] [address] May, [facility] [address] [facility] [id number] [address] [place] [address] May, [facility] [address] [facility] [id number] [address] [place] [address] Apr, [facility] [address] [facility] [id number] [address] [place] [address] Apr, [facility] [address] [facility] [id number] [address] [place] [address] Apr, [facility] [address] [id number] [address] [place] [address], [place] [address] Apr, [facility] [address] [id number] [address] [place] [address], [place] [address] Apr, [facility] [address] [id number] [address] [place] [address], [place] [address] Apr, [facility] [address] [id number] [address] [place] [address], [place] [address] Apr, [facility] [address] [id number] [address] [place] [address], [place] [address] March, [facility] [address] [id number] [address] [place] [address], [place] [address] March, [facility] [address] [id number] [address] [place] [address], [place] [address] Feb, [facility] [address] [id number] [address] [place] [address], [place] [address] Feb, [facility] [address] [id number] [address] [place] [address], [place] [address] Oct, [facility] [address] [id number] [address] [place] [address] Oct, [facility] [address] [id number] [address] [place] [address] Oct, [facility] [address] [id number] [address] [place] [address] Aug, [facility] [address] [id number] [address] [place] [address], [place] [address] Aug, [facility] [address] [id number] [address] [place] [address], [place] [address] Aug, [facility] [address] [id number] [address] [place] [address] Aug, [facility] [address] [id number] [address] [place] [address] Aug, [facility] [address] [facility] [id number] [address] [place] [address] Aug, [facility] [address] [facility] [id number] [address] [place] [address] Aug, [facility] [address] [facility] [id number] [address] [place] [address] May, IMMUNIZATIONS No Known Immunizations SOCIAL HISTORY [...]
--- OUTSIDE RECORDS SUMMARY | 2020-04-22 15:58 | XMS REPORT ---
Author Author Sarmad Hawkins Doctor Organization [facility] Address Unknown Phone Unavailable Care Team Providers Care Compressor Mechanic Name Role Phone Migration, Doctor Unavailable Unavailable PROBLEMS Type Condition ICD9-CM Code QVE59-LC Code Onset Dates Condition S tatus SNOMED Code Problem Other chronic pain G89.29 Active 8 7018586 Problem Hyperlipidemia, unspecified E78.5 Ac tive 72131902 Problem Atrial fibrillation, controlled I48.91 Active 338694718 Problem Hypertension, benign I10 Active 76299618 Problem Coronary artery disease invo lving [place] coronary artery of [place] heart without angina pectoris I25.10 Active 1641 658061035 Problem Chronic fatigue R53.82 Active 8422 9001 Problem Other chronic pain G89.29 Active 8 3694255 ALLERGIES No Information ENCOUNTERS Encounter Location Date Diagnosis [place] [address] [address] Nov, [place] [address] [address] Oct, [place] [address] [address] Oct, Atrial fibrillation, controlled I48.91 a nd Coughing R05 [place] [address] [address] Sep, [place] [address] [address] Sep, [place] [address] [address] Aug, [place] [address] [address] May, Hypertension, benign I10 ; Hyperlipidemi a, unspecified E78.5 ; Chronic fatigue R53.82 and Near syncope R55 [place] [address] [address] May, [place] [address] [address] March, Colon cancer screening Z12.11 [facility] [address] [address] March, Bilateral otitis media with effusion H65 .93 ; Chronic fatigue R53.82 ; Other chronic pain G89.29 and Pain in left shoulder M25.512 [place] [address] [address] March, Hypertension, benign I10 ; Hyperlipidemi a, unspecified E78.5 and Coronary artery disease involving [place] coronary artery of [place] heart without angina pectoris I25.10 [place] [address] [address] Sep, [place] [address] [address] May, Coronary artery disease involving [place] coronary artery of [place] heart without angina pectoris I25.10 and Hypertension, benign I10 [place] [address] [address] May, [place] [address] [address] Feb, Pain in left shoulder M25.512 [place] [address] [address] Jan, Pain in left shoulder M25.512 [place] [address] [address] Dec, [place] [address] [address] Dec, Pain in left shoulder M25.512 [place] [address] [address] Nov, Pain in left shoulder M25.512 [place] [address] [address] Nov, Labyrinthitis of both ears H83.03 and Th roat mass R22.1 [place] [address] [address] Nov, Mass of right side of neck R22.1 [place] [address] [address] Oct, Pain in left shoulder M25.512 [place] [address] [address] Oct, Hypertension, benign I10 ; Orthostatic h ypotension I95.1 and Polyuria R35.8 [place] [address] [address] Oct, Hypertension, benign I10 [place] [address] [address] Aug, Hypertension, benign I10 ; Other chronic pain G89.29 and Pain in left shoulder M25.512 [place] [address] [address] Jul, [place] [address] [address] Jan, Other chronic pain G89.29 and Pain in le ft shoulder M25.512 [place] [address] [address] Nov, Other chronic pain G89.29 [place] [address] [address] Nov, [place] [address] [address] March, Hypertension, benign I10 ; Pain in left shoulder M25.512 and Hip pain, left M25.552 [place] [address] [address] 05 Aug, 2015 HTN (hypertension) 401.9 [place] [address] [place] [address] Aug, [facility] [id number] [place] [address] Jul, HTN (hypertension) 401.9 ; Hyperlipidemi a 272.4 ; Seborrheic keratoses 702.19 and Skin tag 701.9 [facility] [id number] [place] [address] Feb, [facility] [address] [address] Feb, [facility] [id number] [place] [address] Aug, [facility] [address] [address] Aug, [facility] [address] [place] [id number] [place] [address] May, [facility] [address] [address] May, [facility] [address] [place] [id number] [place] [address] Apr, [facility] [address] [address] Apr, [facility] [address] [place] [id number] [place] [address] Apr, [facility] [address] [place] [place] [id number] [place] [address] Apr, [facility] [id number] [place] [address] Apr, [facility] [address] [address] Apr, [facility] [id number] [place] [address] Apr, [facility] [address] [address] March, [facility] [address] [id number] [place] [address] March, [facility] [id number] [place] [address] Feb, [facility] [address] [id number] [place] [address] Feb, [facility] [address] [place] [address] [id number] [place] [address] Oct, [facility] [address] [place] [id number] [place] [address] Oct, [facility] [id number] [place] [address] Oct, [facility] [id number] [place] [address] Aug, [facility] [id number] [place] [address] Aug, [facility] [id number] [place] [address] Aug, [facility] [id number] [place] [address] Aug, [facility] [id number] [place] [address] Aug, [facility] [id number] [place] [address] Aug, [facility] [id number] [place] [address] Aug, [facility] [id number] [place] [address] May, IMMUNIZATIONS No Known Immunizations SOCIAL HISTORY Never Assessed REASON FOR VISIT PLAN OF CARE VITAL SIGNS Height 65 in 2014-03-11 Weight 178.7 lbs 2014-03-11 Temperature 98.6 degrees Fahrenheit 2014-03-11 Heart Rate 82 bpm 2014-03-11 Respiratory Rate 18 2014-03-11 Blood pressure systolic 132 mmHg 2014-03-11 Blood pressure diastolic 90 mmHg 2014-03-11 MEDICATIONS Unknown Medications RESULTS No Results PROCEDURES [...]
--- OUTSIDE RECORDS SUMMARY | 2020-04-22 15:59 | XMS REPORT ---
Author Author Sarmad Hawkins Doctor Organization [facility] Address Unknown Phone Unavailable Care Team Providers Care Fruit Checker Name Role Phone Migration, Doctor Unavailable Unavailable PROBLEMS Type Condition ICD9-CM Code GKU05-CW Code Onset Dates Condition S tatus SNOMED Code Problem Other chronic pain G89.29 Active 8 7103958 Problem Hyperlipidemia, unspecified E78.5 Ac tive 80158765 Problem Atrial fibrillation, controlled I48.91 Active 575609584 Problem Hypertension, benign I10 Active 79768405 Problem Coronary artery disease invo lving [place] coronary artery of [place] heart without angina pectoris I25.10 Active 1641 214260213 Problem Chronic fatigue R53.82 Active 8422 9001 Problem Other chronic pain G89.29 Active 8 9982906 ALLERGIES No Information ENCOUNTERS Encounter Location Date Diagnosis [place] [address] [address] Nov, [place] [address] [address] Oct, [place] [address] [address] Oct, Atrial fibrillation, controlled I48.91 a nd Coughing R05 [place] [address] [address] Sep, [place] [address] [address] Sep, [place] [address] [address] Aug, [place] [address] [address] May, Hypertension, benign I10 ; Hyperlipidemi a, unspecified E78.5 ; Chronic fatigue R53.82 and Near syncope R55 [place] [address] [address] May, [place] [address] [address] March, Colon cancer screening Z12.11 [facility] [address] [address] March, Bilateral otitis media with effusion H65 .93 ; Chronic fatigue R53.82 ; Other chronic pain G89.29 and Pain in left shoulder M25.512 [place] [address] [address] March, Hypertension, benign I10 ; Hyperlipidemi a, unspecified E78.5 and Coronary artery disease involving [place] coronary artery of [place] heart without angina pectoris I25.10 [place] [address] [address] Sep, [place] [address] [address] May, Coronary artery disease involving [place] coronary artery of [place] heart without angina pectoris I25.10 and Hypertension, benign I10 [place] [address] [address] May, [place] [address] [address] Feb, Pain in left shoulder M25.512 [place] [address] [address] Jan, Pain in left shoulder M25.512 [place] [address] [address] Dec, [place] [address] [address] Dec, Pain in left shoulder M25.512 [place] [address] [address] Nov, Pain in left shoulder M25.512 [place] [address] [address] Nov, Labyrinthitis of both ears H83.03 and Th roat mass R22.1 [place] [address] [address] Nov, Mass of right side of neck R22.1 [place] [address] [address] Oct, Pain in left shoulder M25.512 [place] [address] [address] Oct, Hypertension, benign I10 ; Orthostatic h ypotension I95.1 and Polyuria R35.8 [place] [address] [address] Oct, Hypertension, benign I10 [place] [address] [address] Aug, Hypertension, benign I10 ; Other chronic pain G89.29 and Pain in left shoulder M25.512 [place] [address] [address] Jul, [place] [address] [address] Jan, Other chronic pain G89.29 and Pain in le ft shoulder M25.512 [place] [address] [address] Nov, Other chronic pain G89.29 [place] [address] [address] Nov, [place] [address] [address] March, Hypertension, benign I10 ; Pain in left shoulder M25.512 and Hip pain, left M25.552 [place] [address] [address] 05 Aug, 2015 HTN (hypertension) 401.9 [place] [address] [place] [address] Aug, [facility] [id number] [place] [address] Jul, HTN (hypertension) 401.9 ; Hyperlipidemi a 272.4 ; Seborrheic keratoses 702.19 and Skin tag 701.9 [facility] [id number] [place] [address] Feb, [facility] [address] [address] Feb, [facility] [id number] [place] [address] Aug, [facility] [address] [address] Aug, [facility] [id number] [place] [address] May, [facility] [address] [address] May, [facility] [id number] [place] [address] Apr, [facility] [address] [address] Apr, [facility] [address] [place] [id number] [place] [address] Apr, [facility] [address] [id number] [place] [address] Apr, [facility] [id number] [place] [address] Apr, [facility] [address] [address] Apr, [facility] [id number] [place] [address] Apr, [facility] [address] [address] March, [facility] [id number] [place] [address] March, [facility] [id number] [place] [address] Feb, [facility] [id number] [place] [address] Feb, [facility] [id number] [place] [address] Oct, [facility] [id number] [place] [address] Oct, [facility] [id number] [place] [address] Oct, [facility] [id number] [place] [address] Aug, [facility] [id number] [place] [address] Aug, [facility] [id number] [place] [address] Aug, [facility] [id number] [place] [address] Aug, [facility] [id number] [place] [address] Aug, [facility] [id number] [place] [address] Aug, [facility] [id number] [place] [address] Aug, [facility] [id number] [place] [address] May, IMMUNIZATIONS No Known Immunizations SOCIAL HISTORY [...]
--- OUTSIDE RECORDS SUMMARY | 2020-04-22 15:59 | XMS REPORT ---
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 Active 1641 154415761 Problem Chronic fatigue R53.82 Active 8422 9001 Problem Other chronic pain G89.29 Active 8 4413686 ALLERGIES No Information ENCOUNTERS Encounter Location Date Diagnosis [place] [address] [address] Nov, [place] [address] [address] Oct, [place] [address] [address] Oct, Atrial fibrillation, controlled I48.91 a nd Coughing R05 [place] [address] [address] Sep, [place] [address] [address] Sep, [place] [address] [address] Aug, [place] [address] [address] May, Hypertension, benign I10 ; Hyperlipidemi a, unspecified E78.5 ; Chronic fatigue R53.82 and Near syncope R55 [place] [address] [address] May, [place] [address] [address] March, Colon cancer screening Z12.11 [facility] [address] [address] March, Bilateral otitis media with effusion H65 .93 ; Chronic fatigue R53.82 ; Other chronic pain G89.29 and Pain in left shoulder M25.512 [place] [address] [address] March, Hypertension, benign I10 ; Hyperlipidemi a, unspecified E78.5 and Coronary artery disease involving [place] coronary artery of [place] heart without angina pectoris I25.10 [place] [address] [address] Sep, [place] [address] [address] May, Coronary artery disease involving [place] coronary artery of [place] heart without angina pectoris I25.10 and Hypertension, benign I10 [place] [address] [address] May, [place] [address] [address] Feb, Pain in left shoulder M25.512 [place] [address] [address] Jan, Pain in left shoulder M25.512 [place] [address] [address] Dec, [place] [address] [address] Dec, Pain in left shoulder M25.512 [place] [address] [address] Nov, Pain in left shoulder M25.512 [place] [address] [address] Nov, Labyrinthitis of both ears H83.03 and Th roat mass R22.1 [place] [address] [address] Nov, Mass of right side of neck R22.1 [place] [address] [address] Oct, Pain in left shoulder M25.512 [place] [address] [address] Oct, Hypertension, benign I10 ; Orthostatic h ypotension I95.1 and Polyuria R35.8 [place] [address] [address] Oct, Hypertension, benign I10 [place] [address] [address] Aug, Hypertension, benign I10 ; Other chronic pain G89.29 and Pain in left shoulder M25.512 [place] [address] [address] Jul, [place] [address] [address] Jan, Other chronic pain G89.29 and Pain in le ft shoulder M25.512 [place] [address] [address] Nov, Other chronic pain G89.29 [place] [address] [address] Nov, [place] [address] [address] March, Hypertension, benign I10 ; Pain in left shoulder M25.512 and Hip pain, left M25.552 [place] [address] [address] 05 Aug, 2015 HTN (hypertension) 401.9 [place] [address] [place] [address] Aug, [facility] [id number] [place] [address] Jul, HTN (hypertension) 401.9 ; Hyperlipidemi a 272.4 ; Seborrheic keratoses 702.19 and Skin tag 701.9 [facility] [id number] [place] [address] Feb, [facility] [address] [address] Feb, [facility] [id number] [place] [address] Aug, [facility] [address] [address] Aug, [facility] [id number] [place] [address] May, [facility] [address] [address] May, [facility] [id number] [place] [address] Apr, [facility] [address] [address] Apr, [facility] [id number] [place] [address] Apr, [facility] [id number] [place] [address] Apr, [facility] [id number] [place] [address] Apr, [facility] [address] [address] Apr, [facility] [id number] [place] [address] Apr, [facility] [address] [address] March, [facility] [id number] [place] [address] March, [facility] [id number] [place] [address] Feb, [facility] [id number] [place] [address] Feb, [facility] [id number] [place] [address] Oct, [facility] [id number] [place] [address] Oct, [facility] [id number] [place] [address] Oct, [facility] [id number] [place] [address] Aug, [facility] [id number] [place] [address] Aug, [facility] [id number] [place] [address] Aug, [facility] [id number] [place] [address] Aug, [facility] [id number] [place] [address] Aug, [facility] [id number] [place] [address] Aug, [facility] [id number] [place] [address] Aug, [facility] [id number] [place] [address] May, IMMUNIZATIONS No Known Immunizations SOCIAL HISTORY Never Assessed REASON FOR VISIT PLAN OF CARE VITAL SIGNS Height 65 in 2014-04-22 Weight 180.1 lbs 2014-04-22 Temperature 98.7 degrees Fahrenheit 2014-04-22 Heart Rate 76 bpm 2014-04-22 Respiratory Rate 20 2014-04-22 Blood pressure systolic 154 mmHg 2014-04-22 Blood pressure diastolic 88 mmHg 2014-04-22 MEDICATIONS Unknown Medications RESULTS No Results PROCEDURES Procedure Date Ordered Result Body Site THER/PROPH/DIAG INJ, SC/IM April 22, 2014 ASSAY OF UREA NITROGEN April 22, 2014 ASSAY OF CREATININE April 22, 2014 LIPID PANEL April 22, 2014 CT LWR EXTREMITY W/O&W/DYE April 22, 2014 X-RAY EXAM OF HIP April 22, 2014 CT PELVIS W/O&W/DYE April 22, 2014 IM 5OOMG [place] April 22, 2014 VENIPUNCT, ROUTINE* April 22, 2014 INSTRUCTIONS MEDICATIONS ADMINISTERED No Known Medications MEDICAL [...]
--- OUTSIDE RECORDS SUMMARY | 2020-04-22 15:59 | XMS REPORT ---
Author Author Sarmad Hawkins Doctor Organization [facility] Address Unknown Phone Unavailable Care Team Providers [employer] Rep Name Role Phone Migration, Doctor Unavailable Unavailable PROBLEMS Type Condition ICD9-CM Code [id number] Code Onset Dates Condition S tatus SNOMED Code Problem Other chronic pain G89.29 Active 8 2814814 Problem Hyperlipidemia, unspecified E78.5 Ac tive 06248776 Problem Atrial fibrillation, controlled I48.91 Active 550703234 Problem Hypertension, benign I10 Active 76880529 Problem Coronary artery disease invo lving [place] coronary artery of [place] heart without angina pectoris I25.10 Active 1641 049587706 Problem Chronic fatigue R53.82 Active 8422 9001 Problem Other chronic pain G89.29 Active 8 [id number] ALLERGIES No Information ENCOUNTERS Encounter Location Date Diagnosis [place] [address] [address] Nov, [place] [address] [address] Oct, [place] [address] [address] Oct, Atrial fibrillation, controlled I48.91 a nd Coughing R05 [place] [address] [address] Sep, [place] [address] [address] Sep, [place] [address] [address] Aug, [place] [address] [address] May, Hypertension, benign I10 ; Hyperlipidemi a, unspecified E78.5 ; Chronic fatigue R53.82 and Near syncope R55 [place] [address] [address] May, [place] [address] [address] March, Colon cancer screening Z12.11 [facility] [address] [address] March, Bilateral otitis media with effusion H65 .93 ; Chronic fatigue R53.82 ; Other chronic pain G89.29 and Pain in left shoulder M25.512 [place] [address] [address] March, Hypertension, benign I10 ; Hyperlipidemi a, unspecified E78.5 and Coronary artery disease involving [place] coronary artery of [place] heart without angina pectoris I25.10 [place] [address] [address] Sep, [place] [address] [address] May, Coronary artery disease involving [place] coronary artery of [place] heart without angina pectoris I25.10 and Hypertension, benign I10 [place] [address] [address] May, [place] [address] [address] Feb, Pain in left shoulder M25.512 [place] [address] [address] Jan, Pain in left shoulder M25.512 [place] [address] [address] Dec, [place] [address] [address] Dec, Pain in left shoulder M25.512 [place] [address] [address] Nov, Pain in left shoulder M25.512 [place] [address] [address] Nov, Labyrinthitis of both ears H83.03 and Th roat mass R22.1 [place] [address] [address] Nov, Mass of right side of neck R22.1 [place] [address] [address] Oct, Pain in left shoulder M25.512 [place] [address] [address] Oct, Hypertension, benign I10 ; Orthostatic h ypotension I95.1 and Polyuria R35.8 [place] [address] [address] Oct, Hypertension, benign I10 [place] [address] [address] Aug, Hypertension, benign I10 ; Other chronic pain G89.29 and Pain in left shoulder M25.512 [place] [address] [address] Jul, [place] [address] [address] Jan, Other chronic pain G89.29 and Pain in le ft shoulder M25.512 [place] [address] [address] Nov, Other chronic pain G89.29 [place] [address] [address] Nov, [place] [address] [address] March, Hypertension, benign I10 ; Pain in left shoulder M25.512 and Hip pain, left M25.552 [place] [address] [address] 05 Aug, 2015 HTN (hypertension) 401.9 [place] [address] [place] [address] Aug, [facility] [address] [place] [id number] [place] [address] Jul, HTN (hypertension) 401.9 ; Hyperlipidemi a 272.4 ; Seborrheic keratoses 702.19 and Skin tag 701.9 [facility] [address] [place] [address] [id number] [place] [address] Feb, [facility] [address] [address] Feb, [facility] [address] [place] [id number] [place] [address] Aug, [facility] [address] [address] Aug, [facility] [address] [place] [id number] [place] [address] May, [facility] [address] [address] May, [facility] [address] [place] [id number] [place] [address] Apr, [facility] [address] [address] Apr, [facility] [address] [place] [id number] [place] [address] Apr, [facility] [address] [place] [id number] [place] [address] Apr, [facility] [address] [place] [address] [id number] [place] [address] Apr, [facility] [address] [address] Apr, [facility] [address] [place] [id number] [place] [address] Apr, [facility] [address] [address] March, [facility] [address] [place] [id number] [place] [address] March, [facility] [address] [place] [address] [id number] [place] [address] Feb, [facility] [address] [place] [address] [id number] [place] [address] Feb, [facility] [address] [place] [id number] [place] [address] Oct, [facility] [address] [place] [address] [id number] [place] [address] Oct, [facility] [address] [place] [id number] [place] [address] Oct, [facility] [address] [place] [id number] [place] [address] Aug, [facility] [address] [place] [id number] [place] [address] Aug, [facility] [address] [place] [address] [id number] [place] [address] Aug, [facility] [address] [place] [id number] [place] [address] Aug, [facility] [address] [place] [address] [id number] [place] [address] Aug, [facility] [address] [place] [address] [id number] [place] [address] Aug, [facility] [id number] [place] [address] Aug, [facility] [id number] [place] [address] May, IMMUNIZATIONS No Known Immunizations SOCIAL HISTORY [...]
--- OUTSIDE RECORDS SUMMARY | 2020-04-22 15:59 | XMS REPORT ---
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 artery of [place] heart without angina pectoris I25.10 Active 1641 181790938 Problem Chronic fatigue R53.82 Active 8422 9001 Problem Other chronic pain G89.29 Active 8 3596511 ALLERGIES No Information ENCOUNTERS Encounter Location Date Diagnosis [place] [address] [address] Nov, [place] [address] [address] Oct, [place] [address] [address] Oct, Atrial fibrillation, controlled I48.91 a nd Coughing R05 [place] [address] [address] Sep, [place] [address] [address] Sep, [place] [address] [address] Aug, [place] [address] [address] May, Hypertension, benign I10 ; Hyperlipidemi a, unspecified E78.5 ; Chronic fatigue R53.82 and Near syncope R55 [place] [address] [address] May, [place] [address] [address] March, Colon cancer screening Z12.11 [facility] [address] [address] March, Bilateral otitis media with effusion H65 .93 ; Chronic fatigue R53.82 ; Other chronic pain G89.29 and Pain in left shoulder M25.512 [place] [address] [address] March, Hypertension, benign I10 ; Hyperlipidemi a, unspecified E78.5 and Coronary artery disease involving [place] coronary artery of [place] heart without angina pectoris I25.10 [place] [address] [address] Sep, [place] [address] [address] May, Coronary artery disease involving [place] coronary artery of [place] heart without angina pectoris I25.10 and Hypertension, benign I10 [place] [address] [address] May, [place] [address] [address] Feb, Pain in left shoulder M25.512 [place] [address] [address] Jan, Pain in left shoulder M25.512 [place] [address] [address] Dec, [place] [address] [address] Dec, Pain in left shoulder M25.512 [place] [address] [address] Nov, Pain in left shoulder M25.512 [place] [address] [address] Nov, Labyrinthitis of both ears H83.03 and Th roat mass R22.1 [place] [address] [address] Nov, Mass of right side of neck R22.1 [place] [address] [address] Oct, Pain in left shoulder M25.512 [place] [address] [address] Oct, Hypertension, benign I10 ; Orthostatic h ypotension I95.1 and Polyuria R35.8 [place] [address] [address] Oct, Hypertension, benign I10 [place] [address] [address] Aug, Hypertension, benign I10 ; Other chronic pain G89.29 and Pain in left shoulder M25.512 [place] [address] [address] Jul, [place] [address] [address] Jan, Other chronic pain G89.29 and Pain in le ft shoulder M25.512 [place] [address] [address] Nov, Other chronic pain G89.29 [place] [address] [address] Nov, [place] [address] [address] March, Hypertension, benign I10 ; Pain in left shoulder M25.512 and Hip pain, left M25.552 [place] [address] [address] 05 Aug, 2015 HTN (hypertension) 401.9 [place] [address] [place] [address] Aug, [facility] [id number] [place] [address] Jul, HTN (hypertension) 401.9 ; Hyperlipidemi a 272.4 ; Seborrheic keratoses 702.19 and Skin tag 701.9 [facility] [address] [id number] [place] [address] Feb, [facility] [address] [address] Feb, [facility] [address] [place] [id number] [place] [address] Aug, [facility] [address] [address] Aug, [facility] [address] [id number] [place] [address] May, [facility] [address] [address] May, [facility] [address] [place] [id number] [place] [address] Apr, [facility] [address] [address] Apr, [facility] [address] [id number] [place] [address] Apr, [facility] [address] [place] [id number] [place] [address] Apr, [facility] [address] [place] [id number] [place] [address] Apr, [facility] [address] [address] Apr, [facility] [address] [id number] [place] [address] Apr, [facility] [address] [address] March, [facility] [address] [id number] [place] [address] March, [facility] [address] [id number] [place] [address] Feb, [facility] [address] [place] [id number] [place] [address] Feb, [facility] [address] [place] [id number] [place] [address] Oct, [facility] [address] [id number] [place] [address] Oct, [facility] [id number] [place] [address] Oct, [facility] [id number] [place] [address] Aug, [facility] [id number] [place] [address] Aug, [facility] [id number] [place] [address] Aug, [facility] [id number] [place] [address] Aug, [facility] [id number] [place] [address] Aug, [facility] [id number] [place] [address] Aug, [facility] [id number] [place] [address] Aug, [facility] [id number] [place] [address] May, IMMUNIZATIONS No Known Immunizations SOCIAL HISTORY Never Assessed REASON FOR VISIT PLAN OF CARE VITAL SIGNS Height 65 in 2014-05-06 Weight 177.4 lbs 2014-05-06 Temperature 98.5 degrees Fahrenheit 2014-05-06 Heart Rate 76 bpm 2014-05-06 Respiratory Rate 18 2014-05-06 Blood pressure systolic 140 mmHg 2014-05-06 Blood pressure diastolic 88 mmHg 2014-05-06 MEDICATIONS Unknown Medications RESULTS No Results PROCEDURES [...]
[2020-04-22 16:00] VITALS: BP 146/86
--- OUTSIDE RECORDS SUMMARY | 2020-04-22 16:00 | XMS REPORT | Continuity of Care Document ---
Author Organization Unknown Address Unknown Phone Unavailable Allergies Active Description Code Type Severity Reaction Onset Reported/Identified Relationship to Patient Clinical Status Yes enalapril [id number] Drug Allergy Unknown cough 06/17/2016 Medications There is no data. Problems Date Dx Coded Attending Type Code Diagnosis Diagnosed By 12/11/2011 Ot 780.4 DIZZ INESS AND GIDDINESS 01/16/2013 Ot 785.1 PALP ITATIONS 08/14/2013 LALA DO, ELISSA K 272.4 OTHER AND UNSPECIFIED HYPERLIPIDEMIA 08/14/2013 LALA DO, ELISSA K 530.81 GERD 08/14/2013 LALA DO, ELISSA K 715.00 OSTEOARTHROSIS GENERALIZED INVOLVING UNSPECIFIED SITE 08/14/2013 LALA DO, ELISSA K 789.00 ABDOMINAL PAIN UNSPECIFIED SITE 08/14/2013 LALA DO, ELISSA K V70.0 ROUTINE GENERAL MEDICAL EXAMINATION AT A HEALTH CARE FACILITY 08/14/2013 LALA DO, ELISSA K 272.4 OTHER AND UNSPECIFIED HYPERLIPIDEMIA 08/14/2013 LALA DO, ELISSA K 530.81 GERD 08/14/2013 LALA DO, ELISSA K 715.00 OSTEOARTHROSIS GENERALIZED INVOLVING UNSPECIFIED SITE 08/14/2013 LALA DO, ELISSA K 789.00 ABDOMINAL PAIN UNSPECIFIED SITE 08/14/2013 LALA DO, ELISSA K V70.0 ROUTINE GENERAL MEDICAL EXAMINATION AT A HEALTH CARE FACILITY 08/14/2013 LALA DO, ELISSA K 272.4 OTHER AND UNSPECIFIED HYPERLIPIDEMIA 08/14/2013 LALA DO, ELISSA K 530.81 GERD 08/14/2013 LALA DO, ELISSA K 715.00 OSTEOARTHROSIS GENERALIZED INVOLVING UNSPECIFIED SITE 08/14/2013 LALA DO, ELISSA K 789.00 ABDOMINAL PAIN UNSPECIFIED SITE 08/14/2013 LALA DO, ELISSA K V70.0 ROUTINE GENERAL MEDICAL EXAMINATION AT A HEALTH CARE FACILITY 08/14/2013 LLAA DO, ELISSA K 272.4 OTHER AND UNSPECIFIED HYPERLIPIDEMIA 08/14/2013 LALA DO, ELISSA K 530.81 GERD 08/14/2013 LALA DO, ELISSA K 715.00 OSTEOARTHROSIS GENERALIZED INVOLVING UNSPECIFIED SITE 08/14/2013 ELISSA LALA DO 789.00 ABDOMINAL PAIN UNSPECIFIED SITE 08/14/2013 ELISSA LALA DO V70.0 ROUTINE GENERAL MEDICAL EXAMINATION AT A HEALTH CARE FACILITY 03/11/2014 ELISSA LALA DO 604.90 ORCHITIS AND EPIDIDYMITIS UNSPECIFIED 03/11/2014 ELISSA LALA DO 604.90 ORCHITIS AND EPIDIDYMITIS UNSPECIFIED 03/11/2014 ELISSA LALA DO 604.90 ORCHITIS AND EPIDIDYMITIS UNSPECIFIED 04/22/2014 ELISSA LALA DO 401.1 HYPERTENSION, BENIGN ESSENTIAL 04/22/2014 LEISSA LALA DO K 414.00 CORONARY ATHEROSCLEROSIS OF UNSPECIFIED TYPE OF VESSEL [place] OR GRAFT 04/22/2014 ELISSA LALA DO 401.1 HYPERTENSION, BENIGN ESSENTIAL 04/22/2014 ELISSA LALA DO 414.00 CORONARY ATHEROSCLEROSIS OF UNSPECIFIED TYPE OF VESSEL [place] OR GRAFT 05/06/2014 ELISSA LALA DO 719.45 PAIN IN JOINT INVOLVING PELVIC REGION AND THIGH 04/03/2015 Ot 715.91 04/03/2015 Ot 721.0 04/03/2015 Ot 272.4 04/03/2015 Ot 753.10 04/03/2015 Ot 789.02 04/03/2015 Ot 414.01 04/03/2015 Ot 429.3 04/03/2015 Ot 786.50 04/03/2015 Ot 785.1 04/03/2015 Ot 785.1 04/03/2015 MAYANK PA, CHRISTY M Ot 593 .2 04/03/2015 TALLEY PA, CHRISTY M Ot 789.34 04/03/2015 TALLEY PA, CHRISTY M Ot 272 .4 04/03/2015 TALLEY PA, CHRISTY M Ot 401 .1 04/03/2015 TALLEY PA, CHRISTY M Ot 414.00 04/03/2015 TALLEY PA, CHRISTY M Ot 604.90 04/03/2015 TALLEY PA, CHRISTY M Ot 719.41 04/03/2015 MAYANK PA, CHRISTY M Ot 793 .5 04/03/2015 Ot 785.1 04/03/2015 Ot 785.1 04/03/2015 MAYANK PA, CHRISTY M Ot 593 .2 04/03/2015 TALLEY PA, CHRISTY M Ot 789.34 04/03/2015 TALLEY PA, CHRISTY M Ot 272 .4 04/03/2015 TALLEY PA, CHRISTY M Ot 401 .1 04/03/2015 TALLEY PA, CHRISTY M Ot 414.00 04/03/2015 TALLEY PA, CHRISTY M Ot 604.90 04/03/2015 TALLEY PA, CHRISTY M Ot 719.41 04/03/2015 TALLEY PA, CHRISTY M Ot 793 .5 04/23/2015 TALLEY PA, CHRISTY M Ot 272 .4 04/23/2015 TALLEY PA, CHRISTY M Ot 401 .1 04/23/2015 TALLEY PA, CHRISTY M Ot 414.00 04/23/2015 TALLEY PA, CHRISTY M Ot 604.90 04/23/2015 TALLEY PA, CHRISTY M Ot 719.41 04/23/2015 TALLEY PA, CHRISTY M Ot 793 .5 04/23/2015 TALLEY PA, CHRISTY M Ot 272 .4 04/23/2015 TALLEY PA, CHRISTY M Ot 401 .1 04/23/2015 TALLEY PA, CHRISTY M Ot 414.00 04/23/2015 TALLEY PA, CHRISTY M Ot 604.90 04/23/2015 TALLEY PA, CHRISTY M Ot 719.41 04/23/2015 TALLEY PA, CHRISTY M Ot 793 .5 05/12/2015 Ot 785.1 05/12/2015 Ot 785.1 05/12/2015 TALLEY PA, CHRISTY M Ot 593 .2 05/12/2015 TALLEY PA, CHRISTY M Ot 789.34 05/12/2015 TALLEY PA, CHRISTY M Ot 272 .4 05/12/2015 TALLEY PA, CHRISTY M Ot 401 .1 05/12/2015 TALLEY PA, CHRISTY M Ot 414.00 05/12/2015 TALLEY PA, CHRISTY M Ot 604.90 05/12/2015 TALLEY PA, CHRISTY M Ot 719.41 05/12/2015 TALLEY PA, CHRISTY M Ot 793 .5 05/27/2015 TALLEY PA, CHRISTY M Ot 593 .2 05/27/2015 TALLEY PA, CHRISTY M Ot 789.34 05/27/2015 MAYANK STANTON, CHRISTY M Ot 272 .4 05/27/2015 MAYANK STANTON, CHRISTY M Ot 401 .1 05/27/2015 MAYANK STANTON, CHRISTY M Ot 414.00 05/27/2015 CHRISTY HERNANDEZ M Ot 604.90 05/27/2015 CHRISTY HERNANDEZ M Ot 719.41 05/27/2015 CHRISTY HERNANDEZ Ot 793 .5 06/01/2016 Ot 785.1 PALP ITATIONS 06/01/2016 Ot 785.1 PALP ITATIONS 06/01/2016 MAYANK STANTON, CHRISTY Watson Ot 593 .2 CYST OF KIDNEY, ACQUIRED 06/01/2016 CHRISTY HERNANDEZ Ot 789.34 ABDOMINAL/PELVIC SWELLING,MASS/LUMP,LFT 06/01/2016 CHRISTY HERNANDEZ M Ot 272 .4 HYPERLIPIDEMIA NEC/NOS 06/01/2016 CHRISTY HERNANDEZ M Ot 401 .1 BENIGN HYPERTENSION 06/01/2016 CHRISTY HERNANDEZ Ot 414.00 CORON ATHEROSCLER NOS TYPE VESSEL, NATIV 06/01/2016 CHRISTY HERNANDEZ M Ot 604.90 ORCHITIS/EPIDIDYMIT NOS 06/01/2016 CHRISTY HERNANDEZ M Ot 719.41 JOINT PAIN-SHLDER 06/01/2016 CHRISTY HERNANDEZ Ot 793 .5 NOSP (ABN) FINDINGS ON RADIOLOGICAL OT 06/09/2016 Ot 785.1 PALP ITATIONS 06/09/2016 Ot 785.1 PALP ITATIONS 06/09/2016 CHRISTY HERNANDEZ Ot 593 .2 CYST OF KIDNEY, ACQUIRED 06/09/2016 CHRISTY HERNANDEZ Ot 789.34 ABDOMINAL/PELVIC SWELLING,MASS/LUMP,LFT 06/09/2016 CHRISTY HERNANDEZ M Ot 272 .4 HYPERLIPIDEMIA NEC/NOS 06/09/2016 CHRISTY HERNANDEZ M Ot 401 .1 BENIGN HYPERTENSION 06/09/2016 MAYANK STANTON, CHRISTY M Ot 414.00 CORON ATHEROSCLER NOS TYPE VESSEL, NATIV 06/09/2016 CHRISTY HERNANDEZ M Ot 604.90 ORCHITIS/EPIDIDYMIT NOS 06/09/2016 CHRISTY HERNANDEZ M Ot 719.41 JOINT PAIN-SHLDER 06/09/2016 CHRISTY HERNANDEZ Ot 793 .5 NOSP (ABN) FINDINGS ON RADIOLOGICAL OT 06/10/2016 CLEMENCIA WALKER Ot E78.2 MIXED HYPERLIPIDEMIA 06/10/2016 CLEMENCIA WALKER Ot I10 ESSENTIAL (PRIMARY) HYPERTENSION 06/10/2016 CLEMENCIA WALKER Ot R00.2 PALPITATIONS 06/10/2016 CLEMENCIA WALKER Ot R07.89 OTHER CHEST PAIN 06/17/2016 Ot 785.1 PALP ITATIONS 06/18/2016 DAYANNA BATISTA MD Ot E78. 5 HYPERLIPIDEMIA, UNSPECIFIED 06/18/2016 DAYANNA BATISTA MD Ot I10 ESSENTIAL (PRIMARY) HYPERTENSION 06/18/2016 DAYANNA BATISTA MD Ot I25. 10 ATHSCL HEART DISEASE OF [place] CORONARY 06/18/2016 DAYANNA BATISTA MD Ot I47. 2 VENTRICULAR TACHYCARDIA 06/18/2016 DAYANNA BATISTA MD Ot Z79.899 OTHER CARE HOME (CURRENT) DRUG THERAPY 06/29/2016 CLEMENCIA WALKER Ot E78.2 MIXED HYPERLIPIDEMIA 06/29/2016 CLEMENCIA WALKER Ot I10 ESSENTIAL (PRIMARY) HYPERTENSION 06/29/2016 CLEMENCIA WALKER Ot R00.2 PALPITATIONS 06/29/2016 CLEMENCIA WALKER Ot R07.89 OTHER CHEST PAIN 06/30/2016 Ot 785.1 PALP ITATIONS 06/30/2016 Ot 785.1 PALP ITATIONS 06/30/2016 CHRISTY HERNANDEZ Ot 593 .2 CYST OF KIDNEY, ACQUIRED 06/30/2016 CHRISTY HERNANDEZ Ot 789.34 ABDOMINAL/PELVIC SWELLING,MASS/LUMP,LFT 06/30/2016 CHRISTY HERNANDEZ Ot 272 .4 HYPERLIPIDEMIA NEC/NOS 06/30/2016 CHRISTY HERNANDEZ Ot 401 .1 BENIGN HYPERTENSION 06/30/2016 CHRISTY HERNANDEZ Ot 414.00 CORON ATHEROSCLER NOS TYPE VESSEL, NATIV 06/30/2016 CHRISTY HERNANDEZ Ot 604.90 ORCHITIS/EPIDIDYMIT NOS 06/30/2016 CHRISTY HERNANDEZ Ot 719.41 JOINT PAIN-SHLDER 06/30/2016 CHRISTY HERNANDEZ Ot 793 .5 NOSP (ABN) FINDINGS ON RADIOLOGICAL OT 06/30/2016 CLEMENCIA WALKER Ot E78.2 MIXED HYPERLIPIDEMIA 06/30/2016 CLEMENCIA WALKER Ot I10 ESSENTIAL (PRIMARY) HYPERTENSION 06/30/2016 CLEMENCIA WALKER Ot R00.2 PALPITATIONS 06/30/2016 CLEMENCIA WALKER Ot R07.89 OTHER CHEST PAIN 07/03/2016 LYNNE JODRAN, DAYANNA [place] Ot E78. 5 HYPERLIPIDEMIA, UNSPECIFIED 07/03/2016 DAYANNA BATISTA MD, Ot I10 ESSENTIAL (PRIMARY) HYPERTENSION 07/03/2016 DAYANNA BATISTA MD Ot I25. 10 ATHSCL HEART DISEASE OF [place] CORONARY 07/03/2016 DAYANNA BATISTA MD Ot I47. 2 VENTRICULAR TACHYCARDIA 07/03/2016 DAYANNA BATISTA MD Ot Z79.899 OTHER PROFESSOR OF FINANCE (CURRENT) DRUG THERAPY 09/07/2016 CLEMENCIA WALKER Ot E78.2 MIXED HYPERLIPIDEMIA 09/07/2016 CLEMENCIA WALKER K Ot I10 ESSENTIAL (PRIMARY) HYPERTENSION 09/07/2016 CLEMENCIA WALKER K Ot R00.2 PALPITATIONS 09/07/2016 CLEMENCIA WALKER Ot R07.89 OTHER CHEST PAIN 09/08/2016 CLEMENCIA WALKER Ot E78.2 MIXED HYPERLIPIDEMIA 09/08/2016 CLEMENCIA WALKER Ot I10 ESSENTIAL (PRIMARY) HYPERTENSION 09/08/2016 CLEMENCIA WALKER Ot R00.2 PALPITATIONS 09/08/2016 CLEMENCIA WALKER K Ot R07.89 OTHER CHEST PAIN 08/17/2017 DAYANNA BATISTA MD Ot E78. 2 MIXED HYPERLIPIDEMIA 08/17/2017 DAYANNA BATISTA MD Ot I10 ESSENTIAL (PRIMARY) HYPERTENSION 08/17/2017 LYNNE JORDAN, DAYANNA [place] Ot I25. 10 ATHSCL HEART DISEASE OF [place] CORONARY 08/17/2017 DAYANNA BATISTA MD Ot R00. 2 PALPITATIONS 08/17/2017 DAYANNA BATISTA MD Ot R07. 89 OTHER CHEST PAIN 08/30/2017 DAYANNA BATISTA MD Ot E78. 2 MIXED HYPERLIPIDEMIA 08/30/2017 DAYANNA BATISTA MD Ot I10 ESSENTIAL (PRIMARY) HYPERTENSION 08/30/2017 DAYANNA BATISTA MD Ot I25. 10 ATHSCL HEART DISEASE OF [place] CORONARY 08/30/2017 DAYANNA BATISTA MD Ot R00. 2 PALPITATIONS 08/30/2017 DAYANNA BATISTA MD Ot R07. 89 OTHER CHEST PAIN 09/08/2017 DAYANNA BATISTA MD Ot E78. 2 MIXED HYPERLIPIDEMIA 09/08/2017 DAYANNA BATISTA MD Ot I10 ESSENTIAL (PRIMARY) HYPERTENSION 09/08/2017 DAYANNA BATISTA MD Ot I25. 10 ATHSCL HEART DISEASE OF [place] CORONARY 09/08/2017 DAYANNA BATISTA MD Ot R00. 2 PALPITATIONS 09/08/2017 DAYANNA BATISTA MD Ot R07. 89 OTHER CHEST PAIN 12/13/2017 MATEO JOSÉ BUSINESS RISK CONSULTANT Ot R22.1 LOCALIZED SWELLING, MASS AND LUMP, NECK 12/29/2017 MATEO JOSÉ BUSINESS RISK CONSULTANT Ot R22.1 LOCALIZED SWELLING, MASS AND LUMP, NECK 01/16/2018 AMANDA JORDAN, DORA Watson Ot R59.0 LOCALIZED ENLARGED LYMPH NODES 01/31/2018 AMANDA JORDAN, DORA Watson Ot R59.0 LOCALIZED ENLARGED LYMPH NODES 01/31/2018 DAYANNA BATISTA MD Ot E78. 2 MIXED HYPERLIPIDEMIA 01/31/2018 DAYANNA BATISTA MD Ot I10 ESSENTIAL (PRIMARY) HYPERTENSION 01/31/2018 DAYANNA BATISTA MD Ot I25. 10 ATHSCL HEART DISEASE OF [place] CORONARY 01/31/2018 DAYANNA BATISTA MD Ot R00. 2 PALPITATIONS 01/31/2018 DAYANNA BATISTA MD Ot R07. 89 OTHER CHEST PAIN 01/31/2018 DAYANNA BATISTA MD Ot E78. 2 MIXED HYPERLIPIDEMIA 01/31/2018 DAYANNA BATISTA MD Ot I10 ESSENTIAL (PRIMARY) HYPERTENSION 01/31/2018 DAYANNA BATISTA MD Ot I25. 10 ATHSCL HEART DISEASE OF [place] CORONARY 01/31/2018 DAYANNA BATISTA MD Ot R00. 2 PALPITATIONS 01/31/2018 LYNNE JORDAN, DAYANNA [place] Ot R07. 89 OTHER CHEST PAIN 01/31/2018 MATEO JOSÉ MARLENI Ot R22.1 LOCALIZED SWELLING, MASS AND LUMP, NECK 01/31/2018 Ot 785.1 PALP ITATIONS 01/31/2018 CHRISTY HERNANDEZ Ot 593 .2 CYST OF KIDNEY, ACQUIRED 01/31/2018 CHRISTY HERNANDEZ Ot 789.34 ABDOMINAL/PELVIC SWELLING,MASS/LUMP,LFT 01/31/2018 CHRISTY HERNANDEZ Ot 272 .4 HYPERLIPIDEMIA NEC/NOS 01/31/2018 CHRISTY HERNANDEZ Ot 401 .1 BENIGN HYPERTENSION 01/31/2018 CHRISTY HERNANDEZ Ot 414.00 CORON ATHEROSCLER NOS TYPE VESSEL, NATIV 01/31/2018 CHRISTY HERNANDEZ Ot 604.90 ORCHITIS/EPIDIDYMIT NOS 01/31/2018 CHRISTY HERNANDEZ Ot 719.41 JOINT PAIN-SHLDER 01/31/2018 CHRISTY HERNANDEZ Ot 793 .5 NOSP (ABN) FINDINGS ON RADIOLOGICAL OT 01/31/2018 CLEMENCIA WALKER Ot E78.2 MIXED HYPERLIPIDEMIA 01/31/2018 CLEMENCIA WALKER Ot I10 ESSENTIAL (PRIMARY) HYPERTENSION 01/31/2018 CLEMENCIA WALKER Ot R00.2 PALPITATIONS 01/31/2018 CLEMENCIA WALKER Ot R07.89 OTHER CHEST PAIN 01/31/2018 DAYANNA BATISTA MD Ot E78. 2 MIXED HYPERLIPIDEMIA 01/31/2018 DAYANNA BATISTA MD Ot I10 ESSENTIAL (PRIMARY) HYPERTENSION 01/31/2018 DAYANNA BATISTA MD Ot I25. 10 ATHSCL HEART DISEASE OF [place] CORONARY 01/31/2018 DAYANNA BATISTA MD Ot R00. 2 PALPITATIONS 01/31/2018 DAYANNA BATISTA MD Ot R07. 89 OTHER CHEST PAIN 01/31/2018 DAYANNA BATISTA MD Ot E78. 2 MIXED HYPERLIPIDEMIA 01/31/2018 DAYANNA BATISTA MD Ot I10 ESSENTIAL (PRIMARY) HYPERTENSION 01/31/2018 DAYANNA BATISTA MD Ot I25. 10 ATHSCL HEART DISEASE OF [place] CORONARY 01/31/2018 DAYANNA BATISTA MD Ot R00. 2 PALPITATIONS 01/31/2018 DAYANNA BATISTA MD Ot R07. 89 OTHER CHEST PAIN 01/31/2018 MATEO JOSÉ Ot R22.1 LOCALIZED SWELLING, MASS AND LUMP, NECK 01/31/2018 AMANDA JORDAN, DORA Watson Ot R59.0 LOCALIZED ENLARGED LYMPH NODES 02/01/2018 AMANDA JORDAN, DORA Watson Ot R59.0 LOCALIZED ENLARGED LYMPH NODES 03/29/2018 AMANDA JORDAN, DORA M Ot R59.0 LOCALIZED ENLARGED LYMPH NODES 03/29/2018 MATEO JOSÉ BUSINESS RISK CONSULTANT Ot R22.1 LOCALIZED SWELLING, MASS AND LUMP, NECK 03/29/2018 DAYANNA BATISTA MD Ot E78. 2 MIXED HYPERLIPIDEMIA 03/29/2018 DAYANNA BATISTA MD Ot I10 ESSENTIAL (PRIMARY) HYPERTENSION 03/29/2018 DAYANNA BATISTA MD Ot I25. 10 ATHSCL HEART DISEASE OF [place] CORONARY 03/29/2018 DAYANNA BATISTA MD Ot R00. 2 PALPITATIONS 03/29/2018 DAYANNA BATISTA MD Ot R07. 89 OTHER CHEST PAIN 03/29/2018 DAYANNA BATISTA MD Ot E78. 2 MIXED HYPERLIPIDEMIA 03/29/2018 DAYANNA BATISTA MD Ot I10 ESSENTIAL (PRIMARY) HYPERTENSION 03/29/2018 DAYANNA BATISTA MD Ot I25. 10 ATHSCL HEART DISEASE OF [place] CORONARY 03/29/2018 DAYANNA BATISTA MD Ot R00. 2 PALPITATIONS 03/29/2018 DAYANNA BATISTA MD Ot R07. 89 OTHER CHEST PAIN 04/04/2018 DAYANNA BATISTA MD Ot E78. 2 MIXED HYPERLIPIDEMIA 04/04/2018 DAYANNA BATISTA MD Ot I10 ESSENTIAL (PRIMARY) HYPERTENSION 04/04/2018 DAYANNA BATISTA MD Ot I25. 10 ATHSCL HEART DISEASE OF [place] CORONARY 04/04/2018 DAYANNA BATISTA MD Ot R00. 2 PALPITATIONS 04/04/2018 DAYANNA BATISTA MD Ot R07. 89 OTHER CHEST PAIN 04/04/2018 DAYANNA BATISTA MD Ot E78. 2 MIXED HYPERLIPIDEMIA 04/04/2018 DAYANNA BATISTA MD Ot I10 ESSENTIAL (PRIMARY) HYPERTENSION 04/04/2018 DAYANNA BATISTA MD Ot I25. 10 ATHSCL HEART DISEASE OF [place] CORONARY 04/04/2018 DAYANNA BATISTA MD Ot R00. 2 PALPITATIONS 04/04/2018 DAYANNA BATISTA MD Ot R07. 89 OTHER CHEST PAIN 04/04/2018 MATEO JOSÉ Ot R22.1 LOCALIZED SWELLING, MASS AND LUMP, NECK 04/04/2018 DORA PATEL MD Ot R59.0 LOCALIZED ENLARGED LYMPH NODES 05/02/2018 DORA PATEL MD Ot R59.0 LOCALIZED ENLARGED LYMPH NODES 05/02/2018 MATEO JOSÉ Ot R22.1 LOCALIZED SWELLING, MASS AND LUMP, NECK 05/02/2018 DAYANNA BATISTA MD Ot E78. 2 MIXED HYPERLIPIDEMIA 05/02/2018 DAYANNA BATISTA MD Ot I10 ESSENTIAL (PRIMARY) HYPERTENSION 05/02/2018 DAYANNA BATISTA MD Ot I25. 10 ATHSCL HEART DISEASE OF [place] CORONARY 05/02/2018 DAYANNA BATISTA MD Ot R00. 2 PALPITATIONS 05/02/2018 DAYANNA BATISTA MD Ot R07. 89 OTHER CHEST PAIN 05/02/2018 DAYANNA BATISTA MD Ot E78. 2 MIXED HYPERLIPIDEMIA 05/02/2018 DAYANNA BATISTA MD Ot I10 ESSENTIAL (PRIMARY) HYPERTENSION 05/02/2018 DAYANNA BATISTA MD Ot I25. 10 ATHSCL HEART DISEASE OF [place] CORONARY 05/02/2018 DAYANNA BATISTA MD Ot R00. 2 PALPITATIONS 05/02/2018 DAYANNA BATISTA MD Ot R07. 89 OTHER CHEST PAIN 05/11/2019 CHRISTY HERNANDEZ Ot 272 .4 HYPERLIPIDEMIA NEC/NOS 05/11/2019 CHRISTY HERNANDEZ Ot 401 .1 BENIGN HYPERTENSION 05/11/2019 CHRISTY HERNANDEZ Ot 414.00 CORON ATHEROSCLER NOS TYPE VESSEL, NATIV 05/11/2019 CHRISTY HERNANDEZ Ot 604.90 ORCHITIS/EPIDIDYMIT NOS 05/11/2019 CHRISTY HERNANDEZ Ot 719.41 JOINT PAIN-SHLDER 05/11/2019 CHRISTY HERNANDEZ Ot 793 .5 NOSP (ABN) FINDINGS ON RADIOLOGICAL OT 05/11/2019 CLEMENCIA WALKER Ot E78.2 MIXED HYPERLIPIDEMIA 05/11/2019 CLEMENCIA WALKER Ot I10 ESSENTIAL (PRIMARY) HYPERTENSION 05/11/2019 CLEMENCIA WALKER Ot R00.2 PALPITATIONS 05/11/2019 CLEMENCIA WALKER Ot R07.89 OTHER CHEST PAIN 05/11/2019 DAYANNA BATISTA MD Ot E78. 2 MIXED HYPERLIPIDEMIA 05/11/2019 DAYANNA BATISTA MD Ot I10 ESSENTIAL (PRIMARY) HYPERTENSION 05/11/2019 DAYANNA BATISTA MD Ot I25. 10 ATHSCL HEART DISEASE OF [place] CORONARY 05/11/2019 DAYANNA BATISTA MD Ot R00. 2 PALPITATIONS 05/11/2019 DAYANNA BATISTA MD Ot R07. 89 OTHER CHEST PAIN 05/11/2019 DAYANNA BATISTA MD Ot E78. 2 MIXED HYPERLIPIDEMIA 05/11/2019 DAYANNA BATISTA MD Ot I10 ESSENTIAL (PRIMARY) HYPERTENSION 05/11/2019 DAYANNA BATISTA MD Ot I25. 10 ATHSCL HEART DISEASE OF [place] CORONARY 05/11/2019 DAYANNA BATISTA MD Ot R00. 2 PALPITATIONS 05/11/2019 DAYANNA BATISTA MD Ot R07. 89 OTHER CHEST PAIN 05/11/2019 MATEO JOSÉ Ot R22.1 LOCALIZED SWELLING, MASS AND LUMP, NECK 05/11/2019 AMANDA JORDAN, DORA Watson Ot R59.0 LOCALIZED ENLARGED LYMPH NODES 05/15/2019 DAYANNA BATISTA MD Ot E78. 5 HYPERLIPIDEMIA, UNSPECIFIED 05/15/2019 DAYANNA BATISTA MD Ot I10 ESSENTIAL (PRIMARY) HYPERTENSION 05/15/2019 DAYANNA BATISTA MD Ot I25. 10 ATHSCL HEART DISEASE OF [place] CORONARY 05/15/2019 DAYANNA BATISTA MD Ot I36. 1 NONRHEUMATIC TRICUSPID (VALVE) INSUFFICI 05/15/2019 DAYANNA BATISTA MD Ot R00. 2 PALPITATIONS 05/15/2019 DAYANNA BATISTA MD Ot R07. 9 CHEST PAIN, UNSPECIFIED 05/15/2019 DAYANNA BATISTA MD Ot E78. 5 HYPERLIPIDEMIA, UNSPECIFIED 05/15/2019 DAYANNA BATISTA MD Ot I10 ESSENTIAL (PRIMARY) HYPERTENSION 05/15/2019 DAYANNA BATISTA MD Ot I25. 10 ATHSCL HEART DISEASE OF [place] CORONARY 05/15/2019 DAYANNA BATISTA MD Ot I36. 1 NONRHEUMATIC TRICUSPID (VALVE) INSUFFICI 05/15/2019 DAYANNA BATISTA MD Ot R00. 2 PALPITATIONS 05/15/2019 DAYANNA BATISTA MD Ot R07. 9 CHEST PAIN, UNSPECIFIED 06/06/2019 DAYANNA BATISTA MD Ot E78. 5 HYPERLIPIDEMIA, UNSPECIFIED 06/06/2019 DAYANAN BATISTA MD Ot I10 ESSENTIAL (PRIMARY) HYPERTENSION 06/06/2019 DAYANNA BATISTA MD Ot I25. 10 ATHSCL HEART DISEASE OF [place] CORONARY 06/06/2019 DAYANNA BATISTA MD Ot I36. 1 NONRHEUMATIC TRICUSPID (VALVE) INSUFFICI 06/06/2019 DAYANNA BATISTA MD Ot R00. 2 PALPITATIONS 06/06/2019 DAYANNA BATISTA MD Ot R07. 9 CHEST PAIN, UNSPECIFIED 06/20/2019 DAYANNA BATISTA MD Ot E78. 5 HYPERLIPIDEMIA, UNSPECIFIED 06/20/2019 DAYANNA BATISTA MD Ot I10 ESSENTIAL (PRIMARY) HYPERTENSION 06/20/2019 DAYANNA BATISTA MD Ot I25. 10 ATHSCL HEART DISEASE OF [place] CORONARY 07/11/2019 DAYANNA BATISTA MD Ot E78. 5 HYPERLIPIDEMIA, UNSPECIFIED 07/11/2019 DAYANNA BATISTA MD Ot I10 ESSENTIAL (PRIMARY) HYPERTENSION 07/11/2019 DAYANNA BATISTA MD Ot I25. 10 ATHSCL HEART DISEASE OF [place] CORONARY 08/09/2019 DAYANNA BATISTA MD Ot E78. 5 HYPERLIPIDEMIA, UNSPECIFIED 08/09/2019 DAYANNA BATISTA MD Ot I10 ESSENTIAL (PRIMARY) HYPERTENSION 08/09/2019 DAYANNA BATISTA MD Ot I25. 10 ATHSCL HEART DISEASE OF [place] CORONARY 08/09/2019 DAYANNA BATISTA MD Ot R00. 2 PALPITATIONS 08/09/2019 DAYANNA BATISTA MD Ot R07. 89 OTHER CHEST PAIN 08/10/2019 DAYANNA BATISTA MD Ot E78. 5 HYPERLIPIDEMIA, UNSPECIFIED 08/10/2019 DAYANNA BATISTA MD Ot I10 ESSENTIAL (PRIMARY) HYPERTENSION 08/10/2019 DAYANNA BATISTA MD Ot I25. 10 ATHSCL HEART DISEASE OF [place] CORONARY 08/10/2019 DAYANNA BATISTA MD Ot R00. 2 PALPITATIONS 08/10/2019 DAYANNA BATISTA MD Ot R07. 89 OTHER CHEST PAIN 08/15/2019 DAYANNA BATISTA MD Ot E78. 5 HYPERLIPIDEMIA, UNSPECIFIED 08/15/2019 DAYANNA BATISTA MD Ot I10 ESSENTIAL (PRIMARY) HYPERTENSION 08/15/2019 DAYANNA BATISTA MD Ot I25. 10 ATHSCL HEART DISEASE OF [place] CORONARY 08/15/2019 DAYANNA BATISTA MD Ot I47. 2 VENTRICULAR TACHYCARDIA 08/15/2019 DAYANNA BATISTA MD Ot I49. 3 VENTRICULAR PREMATURE DEPOLARIZATION 08/15/2019 DAYANNA BATISTA MD Ot I77. 1 STRICTURE OF ARTERY 08/15/2019 DAYANNA BATISTA MD Ot K21. 9 GASTRO-ESOPHAGEAL REFLUX DISEASE WITHOUT 08/15/2019 DAYANNA BATISTA MD Ot R00. 2 PALPITATIONS 08/15/2019 DAYANNA BATISTA MD Ot R59. 0 LOCALIZED ENLARGED LYMPH NODES 08/15/2019 DAYANNA BATISTA MD Ot Z79. 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 9 FAMILY HISTORY OF MALIGNANT NEOPLASM, UN 08/15/2019 DAYANNA BATISTA MD Ot Z82. 3 FAMILY HISTORY OF STROKE 08/15/2019 DAYANNA BATISTA MD Ot Z82. 49 FAMILY HX OF ISCHEM HEART DIS AND OTH DI 08/15/2019 DAYANNA BATISTA MD Ot Z87.891 PERSONAL HISTORY OF NICOTINE DEPENDENCE 08/23/2019 DAYANNA BATISTA MD Ot E78. 5 HYPERLIPIDEMIA, UNSPECIFIED 08/23/2019 DAYANNA BATISTA MD Ot I10 ESSENTIAL (PRIMARY) HYPERTENSION 08/23/2019 DAYANNA BATISTA MD Ot I25. 10 ATHSCL HEART DISEASE OF [place] CORONARY 08/23/2019 DAYANNA BATISTA MD Ot I47. 2 VENTRICULAR TACHYCARDIA 08/23/2019 DAYANNA BATISTA MD, Ot I49. 3 VENTRICULAR PREMATURE DEPOLARIZATION 08/23/2019 DAYANNA BATISTA MD, Ot I77. 1 STRICTURE OF ARTERY 08/23/2019 DAYANNA BATISTA MD, Ot K21. 9 GASTRO-ESOPHAGEAL REFLUX DISEASE WITHOUT 08/23/2019 DAYANNA BATISTA MD Ot R00. 2 PALPITATIONS 08/23/2019 DAYANNA BATISTA MD, Ot R59. 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 9 FAMILY HISTORY OF MALIGNANT NEOPLASM, UN 08/23/2019 DAYANNA BATISTA MD, Ot Z82. 3 FAMILY HISTORY OF STROKE 08/23/2019 DAYANNA BATISTA MD, Ot Z82. 49 FAMILY HX OF ISCHEM HEART DIS AND OTH DI 08/23/2019 DAYANNA BATISTA MD, Ot Z87.891 PERSONAL HISTORY OF NICOTINE DEPENDENCE 10/11/2019 LEBOARDO HERNANDEZ DO Ot E78.00 PURE HYPERCHOLESTEROLEMIA, UNSPECIFIED 10/11/2019 LEOBARDO HERNANDEZ DO Ot E78.5 HYPERLIPIDEMIA, UNSPECIFIED 10/11/2019 LEOBARDO HERNANDEZ DO Ot I10 ESSENTIAL (PRIMARY) HYPERTENSION 10/11/2019 LEOBARDO HERNANDEZ DO Ot I25.10 ATHSCL HEART DISEASE OF [place] CORONARY 10/11/2019 LEOBARDO HERNANDEZ DO Ot I48.91 UNSPECIFIED ATRIAL FIBRILLATION 10/11/2019 LEOBARDO HERNANDEZ DO Ot K21.9 GASTRO-ESOPHAGEAL REFLUX DISEASE WITHOUT 10/11/2019 LEOBARDO HERNANDEZ DO Ot Z23 ENCOUNTER FOR IMMUNIZATION 10/11/2019 LEOBARDO HERNANDEZ DO Ot Z79.82 CARE HOME (CURRENT) USE OF ASPIRIN 10/11/2019 LEOBARDO HERNANDEZ DO Ot Z87.89 1 PERSONAL HISTORY OF NICOTINE DEPENDENCE 10/11/2019 LEOBARDO HERNANDEZ DO Ot Z95.9 PRESENCE OF CARDIAC AND VASCULAR IMPLANT 12/13/2019 DAYANNA BATISTA MD Ot E78. 5 HYPERLIPIDEMIA, UNSPECIFIED 12/13/2019 DAYANNA BATISTA MD Ot I10 ESSENTIAL (PRIMARY) HYPERTENSION 12/13/2019 DAYANNA BATISTA MD Ot I25. 10 ATHSCL HEART DISEASE OF [place] CORONARY 12/13/2019 DAYANNA BATISTA MD Ot I47. 2 VENTRICULAR TACHYCARDIA 12/13/2019 DAYANNA BATISTA MD Ot I48. 0 PAROXYSMAL ATRIAL FIBRILLATION 12/13/2019 DAYANNA BATISTA MD Ot Z79. 01 CARE HOME (CURRENT) USE OF ANTICOAGULANT 12/13/2019 DAYANNA BATISTA MD Ot Z79. 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 9 FAMILY HISTORY OF MALIGNANT NEOPLASM, UN 12/13/2019 DAYANNA BATISTA MD Ot Z82. 3 FAMILY HISTORY OF STROKE 12/13/2019 DAYANNA BATISTA MD Ot Z82. 49 FAMILY HX OF ISCHE[place] HEART DIS AND OTH DI 12/13/2019 DAYANNA BATISTA MD Ot Z87.891 PERSONAL HISTORY OF NICOTINE DEPENDENCE 12/13/2019 DAYANNA BATISTA MD Ot Z88. 8 ALLERGY STATUS TO [facility] DRUG/MEDS/BIOL SUB 02/22/2020 DAYANNA BATISTA MD Ot E78. 5 HYPERLIPIDEMIA, UNSPECIFIED 02/22/2020 DAYANNA BATISTA MD Ot I10 ESSENTIAL (PRIMARY) HYPERTENSION 02/22/2020 DAYANNA BATISTA MD Ot I25. 10 ATHSCL HEART DISEASE OF [place] CORONARY 02/22/2020 DAYANNA BATISTA MD Ot I47. 2 VENTRICULAR TACHYCARDIA 02/22/2020 DAYANNA BATISTA MD Ot I48. 0 PAROXYSMAL ATRIAL FIBRILLATION 02/22/2020 DAYANNA BATISTA MD Ot Z79. 01 CARE HOME (CURRENT) USE OF ANTICOAGULANT 02/22/2020 DAYANNA BATISTA MD Ot Z79. 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 9 FAMILY HISTORY OF MALIGNANT NEOPLASM, UN 02/22/2020 DAYANNA BATISTA MD Ot Z82. 3 FAMILY HISTORY OF STROKE 02/22/2020 DAYANNA BATISTA MD Ot Z82. 49 FAMILY HX OF ISCHEM HEART DIS AND OTH DI 02/22/2020 DAYANNA BATISTA MD, Ot Z87.891 PERSONAL HISTORY OF NICOTINE DEPENDENCE 02/22/2020 DAYANNA BATISTA MD, Ot Z88. 8 ALLERGY STATUS TO OTH DRUG/MEDS/BIOL SUB Procedures Code Description [place] [address] ROUT INE VENIPUNCTURE 08/14/2013 02510 US A BDOMEN ULTRASOUND, LIMITED (SPECIFY ORGAN) 08/14/2013 91723 CBC 08/14/2013 72858 CMP 08/14/2013 3341386 GF R CALC (RESULT ONLY) 08/14/2013 73996 TSH 08/14/2013 69000 ROUT INE VENIPUNCTURE 04/22/2014 87465 LIPI D PANEL 04/22/2014 85648 THER APUTIC INJ SQ/IM 04/22/2014 J0696 ROCE PHIN INJ 1 g 04/22/[address] P ADELAIDA W/O & W/CONTRAST 04/23/2014 37721 XRAY HIP LEFT UNILATERAL MIN 2 VIEWS 04/23/[address] E XTREMITY, LOWER, LEFT W/ AND W/O CONTRAST 04/23/2014 UROLOGY FR OGGE, PALMA 05/06/2014 Results Test Result Range Automated blood complete blood count (he mogram) panel - 06/17/16 13:20 Blood leukocytes automated count (number/volume) 6.4 10*3/uL 4.3-11.0 Blood erythrocytes automated count (number/volume) 5.53 10*6/uL 4.35-5.85 Venous blood hemoglobin measurement (mass/volume) 16.9 g/dL 13.3-17.7 Blood hematocrit (volume fraction) 50 % 40-54 Automated erythrocyte mean corpuscular volume 90 [ foz_us] 80-99 Automated erythrocyte mean corpuscular h emoglobin (mass per erythrocyte) 31 pg 25-34 Automated erythrocyte mean corpuscular h emoglobin concentration measurement (mass/volume) 34 g/dL 32-36 Automated erythrocyte distribution width ratio 12. 4 % 10.0- 14.5 Automated blood platelet count (count/volume) 225 10*3/uL 130-400 Automated blood platelet mean volume measurement 10.4 [foz_us] 7.4-10.4 PT panel in platelet poor plasma by coag ulation assay - 06/17/16 13:20 Prothrombin time (PT) in platelet poor plasma by coagu lation assay 13.1 s 12.2-14.7 INR in platelet poor plasma or blood by coagulation as say 1.0 0.8-1.4 Activated partial thromboplastin time (a PTT) in platelet poor plasma bycoagulation assay - 06/17/16 13:20 Activated partial thromboplastin time (a PTT) in platelet poor plasma bycoagulation assay 33 s 24-35 Comprehensive metabolic panel - 06/17/16 13:20 Serum or plasma sodium measurement (moles/volume) 142 mmol/L 135-145 Serum or plasma potassium measurement (moles/volume) 3.9 mmol/L 3.6-5.0 Serum or plasma chloride measurement (moles/volume) 108 mmol/L 98-107 Carbon dioxide 27 mmol/L 21-32 Serum or plasma anion gap determination (moles/volume) 7 mmol/L 5-14 Serum or plasma urea nitrogen measurement (mass/volume ) 15 mg/dL 7-18 Serum or plasma creatinine measurement (mass/volume) 0.80 mg/dL 0.60-1.30 Serum or plasma urea nitrogen/creatinine mass ratio 19 NRG Serum or plasma creatinine measurement w ith calculation of estimated glomerular filtration rate > NRG Serum or plasma glucose measurement (mass/volume) 94 mg/dL 70-105 Serum or plasma calcium measurement (mass/volume) 9.5 mg/dL 8.5-10.1 Serum or plasma total bilirubin measurement (mass/volu me) 1.1 mg/dL 0.1-1.0 Serum or plasma alkaline phosphatase rell surement (enzymatic activity/volume) 54 U/L 40-136 Serum or plasma aspartate aminotransfera se measurement (enzymatic activity/volume) 25 U/L 5-34 Serum or plasma alanine aminotransferase measurement (enzymatic activity/volume) 28 U/L 0-55 Serum or plasma protein measurement (mass/volume) 6.9 g/dL 6.4-8.2 Serum or plasma albumin measurement (mass/volume) 4.6 g/dL 3.2-4.5 Lipid 1996 panel - 06/17/16 13:20 Serum or plasma triglyceride measurement (mass/volume) 250 mg/dL <150 Serum or plasma cholesterol measurement (mass/volume) 195 mg/dL < 200 Serum or plasma cholesterol in HDL measurement (mass/v olume) 33 mg/dL 40-60 Cholesterol in LDL [mass/volume] in serum or plasma by direct assay 110 mg/dL 1-129 Serum or plasma cholesterol in VLDL measurement (mass/ volume) 50 mg/dL 5-40 Methicillin resistant Staphylococcus aur eus (MRSA) screening culture - 06/17/16 13:20 Methicillin resistant Staphylococcus aureus (MRSA) scr eening culture NEG NRG Automated blood complete blood count (he mogram) panel - 06/18/16 04:18 Blood leukocytes automated count (number/volume) 6.4 10*3/uL 4.3-11.0 Blood erythrocytes automated count (number/volume) 4.91 10*6/uL 4.35-5.85 Venous blood hemoglobin measurement (mass/volume) 15.2 g/dL 13.3-17.7 Blood hematocrit (volume fraction) 44 % 40-54 Automated erythrocyte mean corpuscular volume 90 [ foz_us] 80-99 Automated erythrocyte mean corpuscular h emoglobin (mass per erythrocyte) 31 pg 25-34 Automated erythrocyte mean corpuscular h emoglobin concentration measurement (mass/volume) 34 g/dL 32-36 Automated erythrocyte distribution width ratio 12. 4 % 10.0- 14.5 Automated blood platelet count (count/volume) 195 10*3/uL 130-400 Automated blood platelet mean volume measurement 10.6 [foz_us] 7.4-10.4 Whole blood basic metabolic panel - 03/29 04:18 Serum or plasma sodium measurement (moles/volume) 138 mmol/L 135-145 Serum or plasma potassium measurement (moles/volume) 4.1 mmol/L 3.6-5.0 Serum or plasma chloride measurement (moles/volume) 109 mmol/L 98-107 Carbon dioxide 20 mmol/L 21-32 Serum or plasma anion gap determination (moles/volume) 9 mmol/L 5-14 Serum or plasma urea nitrogen measurement (mass/volume ) 13 mg/dL 7-18 Serum or plasma creatinine measurement (mass/volume) 0.73 mg/dL 0.60-1.30 Serum or plasma urea nitrogen/creatinine mass ratio 18 NRG Serum or plasma creatinine measurement w ith calculation of estimated glomerular filtration rate > NRG Serum or plasma glucose measurement (mass/volume) 101 mg/dL 70-105 Serum or plasma calcium measurement (mass/volume) 8.7 mg/dL 8.5-10.1 CBC - 10/21/17 09:33 WHITE BLOOD CELL COUNT 5.7 Thousand/uL 3 .8-10.8 RED BLOOD CELL COUNT 5.19 Million/uL 4.2 0-5.80 HEMOGLOBIN 17.0 g/dL 13.2-17.1 HEMATOCRIT 48.8 % 38.5-50.0 MCV 94.0 fL 80.0-100.0 MCH 32.8 pg 27.0-33.0 MCHC 34.8 g/dL 32.0-36.0 RDW 12.9 % 11.0-15.0 PLATELET COUNT 224 Thousand/uL 140-400 MPV 10.2 fL 7.5-12.5 ABSOLUTE NEUTROPHILS 3597 cells/uL 1500- 7800 ABSOLUTE LYMPHOCYTES 1516 cells/uL 850-3 900 ABSOLUTE MONOCYTES 473 cells/uL 200-950 ABSOLUTE EOSINOPHILS 51 cells/uL 15-500 ABSOLUTE BASOPHILS 63 cells/uL 0-200 NEUTROPHILS 63.1 % NRG LYMPHOCYTES 26.6 % NRG MONOCYTES 8.3 % NRG EOSINOPHILS 0.9 % NRG BASOPHILS 1.1 % NRG CMP - 03/27/19 08:35 GLUCOSE 99 mg/dL 65-99 UREA NITROGEN (BUN) 12 mg/dL 7-25 CREATININE 0.71 mg/dL 0.70-1.25 eGFR NON-AFR. TOGOLESE 96 mL/min/1.73m2 > OR = 60 eGFR 112 mL/min/1.73m2 > OR = 60 BUN/CREATININE RATIO NOT APPLICABLE (calc) 6-22 SODIUM 140 mmol/L 135-146 POTASSIUM 4.2 mmol/L 3.5-5.3 CHLORIDE 104 mmol/L 98-110 CARBON DIOXIDE 31 mmol/L 20-32 CALCIUM 9.5 mg/dL 8.6-10.3 PROTEIN, TOTAL 6.4 g/dL 6.1-8.1 ALBUMIN 4.5 g/dL 3.6-5.1 GLOBULIN 1.9 g/dL (calc) 1.9-3.7 ALBUMIN/GLOBULIN RATIO 2.4 (calc) 1.0-2. 5 BILIRUBIN, TOTAL 0.9 mg/dL 0.2-1.2 ALKALINE PHOSPHATASE 54 U/L 40-115 AST 19 U/L 10-35 ALT 17 U/L 9-46 T3 TOTAL - 03/28/19 11:49 T3, TOTAL 78 ng/dL 76-181 TSH - 03/28/19 11:49 TSH 1.36 mIU/L 0.40-4.50 Automated blood complete blood count (he mogram) panel - 08/15/19 07:15 Blood leukocytes automated count (number/volume) 6.6 10*3/uL 4.3-11.0 Blood erythrocytes automated count (number/volume) 5.45 10*6/uL 4.35-5.85 Venous blood hemoglobin measurement (mass/volume) 17.1 g/dL 13.3-17.7 Blood hematocrit (volume fraction) 51 % 40-54 Automated erythrocyte mean corpuscular volume 93 [ foz_us] 80-99 Automated erythrocyte mean corpuscular h emoglobin (mass per erythrocyte) 31 pg 25-34 Automated erythrocyte mean corpuscular h emoglobin concentration measurement (mass/volume) 34 g/dL 32-36 Automated erythrocyte distribution width ratio 12. 1 % 10.0- 14.5 Automated blood platelet count (count/volume) 231 10*3/uL 130-400 Automated blood platelet mean volume measurement 9.8 [foz_us] 7.4-10.4 Complete urinalysis with reflex to cultu re - 08/15/19 07:15 Urine color determination YELLOW NRG Urine clarity determination CLEAR NR G Urine pH measurement by test strip 5 5-9 Specific gravity of urine by test strip 1.025 1.016-1.022 Urine protein assay by test strip, semi-quantitative NEGATIVE NEGATIVE Urine glucose detection by automated test strip NE GATIVE NEGATIVE Erythrocytes detection in urine sediment by light micr oscopy NEGATIVE NEGATIVE Urine ketones detection by automated test strip NE GATIVE NEGATIVE Urine nitrite detection by test strip NEGATIVE NEGATIVE Urine total bilirubin detection by test strip NEGA TIVE NEGATIVE Urine urobilinogen measurement by automated test strip (mass/volume) NORMAL NORMAL Urine leukocyte esterase detection by dipstick NEG ATIVE NEGATIVE Automated urine sediment erythrocyte cou nt by microscopy (number/high power field) NONE NRG Automated urine sediment leukocyte count by microscopy (number/high power field) RARE NRG Bacteria detection in urine sediment by light microsco py TRACE NRG Squamous epithelial cells detection in u rine sediment by light microscopy RARE NRG Crystals detection in urine sediment by light microsco py NONE NRG Casts detection in urine sediment by light microscopy NONE NRG Mucus detection in urine sediment by light microscopy SMALL NRG Complete urinalysis with reflex to culture NO NRG PT panel in platelet poor plasma by coag ulation assay - 08/15/19 07:15 Prothrombin time (PT) in platelet poor plasma by coagu lation assay 13.6 s 12.2-14.7 INR in platelet poor plasma or blood by coagulation as say 1.0 0.8-1.4 Activated partial thromboplastin time (a PTT) in platelet poor plasma bycoagulation assay - 08/15/19 07:15 Activated partial thromboplastin time (a PTT) in platelet poor plasma bycoagulation assay 35 s 24-35 Comprehensive metabolic panel - 08/15/19 07:15 Serum or plasma sodium measurement (moles/volume) 143 mmol/L 135-145 Serum or plasma potassium measurement (moles/volume) 3.9 mmol/L 3.6-5.0 Serum or plasma chloride measurement (moles/volume) 106 mmol/L 98-107 Carbon dioxide 27 mmol/L 21-32 Serum or plasma anion gap determination (moles/volume) 10 mmol/L 5-14 Serum or plasma urea nitrogen measurement (mass/volume ) 15 mg/dL 7-18 Serum or plasma creatinine measurement (mass/volume) 0.80 mg/dL 0.60-1.30 Serum or plasma urea nitrogen/creatinine mass ratio 19 NRG Serum or plasma creatinine measurement w ith calculation of estimated glomerular filtration rate > NRG Serum or plasma glucose measurement (mass/volume) 103 mg/dL 70-105 Serum or plasma calcium measurement (mass/volume) 9.4 mg/dL 8.5-10.1 Serum or plasma total bilirubin measurement (mass/volu me) 0.6 mg/dL 0.1-1.0 Serum or plasma alkaline phosphatase rell surement (enzymatic activity/volume) 64 U/L 40-136 Serum or plasma aspartate aminotransfera se measurement (enzymatic activity/volume) 25 U/L 5-34 Serum or plasma alanine aminotransferase measurement (enzymatic activity/volume) 28 U/L 0-55 Serum or plasma protein measurement (mass/volume) 7.1 g/dL 6.4-8.2 Serum or plasma albumin measurement (mass/volume) 4.5 g/dL 3.2-4.5 CALCIUM CORRECTED 9.0 mg/dL 8.5-10.1 Lipid 1996 panel - 08/15/19 07:15 Serum or plasma triglyceride measurement (mass/volume) 188 mg/dL <150 Serum or plasma cholesterol measurement (mass/volume) 165 mg/dL < 200 Serum or plasma cholesterol in HDL measurement (mass/v olume) 37 mg/dL 40-60 Cholesterol in LDL [mass/volume] in serum or plasma by direct assay 97 mg/dL 1-129 Serum or plasma cholesterol in VLDL measurement (mass/ volume) 38 mg/dL 5-40 Methicillin resistant Staphylococcus aur eus (MRSA) screening culture - 08/15/19 07:15 Methicillin resistant Staphylococcus aureus (MRSA) scr eening culture NEG NRG Complete blood count (CBC) with automate d white blood cell (WBC) differential - 10/10/19 09:28 Blood leukocytes automated count (number/volume) 6.6 10*3/uL 4.3-11.0 Blood erythrocytes automated count (number/volume) 5.05 10*6/uL 4.35-5.85 Venous blood hemoglobin measurement (mass/volume) 15.7 g/dL 13.3-17.7 Blood hematocrit (volume fraction) 47 % 40-54 Automated erythrocyte mean corpuscular volume 92 [ foz_us] 80-99 Automated erythrocyte mean corpuscular h emoglobin (mass per erythrocyte) 31 pg 25-34 Automated erythrocyte mean corpuscular h emoglobin concentration measurement (mass/volume) 34 g/dL 32-36 Automated erythrocyte distribution width ratio 11. 7 % 10.0- 14.5 Automated blood platelet count (count/volume) 371 10*3/uL 130-400 Automated blood platelet mean volume measurement 9.3 [foz_us] 7.4-10.4 Automated blood neutrophils/100 leukocytes 65 % 42-75 Automated blood lymphocytes/100 leukocytes 21 % 12-44 Blood monocytes/100 leukocytes 12 % 0-12 Automated blood eosinophils/100 leukocytes 1 % 0-10 Automated blood basophils/100 leukocytes 1 % 0-10 Blood neutrophils automated count (number/volume) 4.3 10*3 1.8-7.8 Blood lymphocytes automated count (number/volume) 1.4 10*3 1.0-4.0 Blood monocytes automated count (number/volume) 0. 8 10*3 0.0-1.0 Automated eosinophil count 0.1 10*3/uL 0 .0-0.3 Automated blood basophil count (count/volume) 0.0 10*3/uL 0.0-0.1 Comprehensive metabolic panel - 10/10/19 09:28 Serum or plasma sodium measurement (moles/volume) 144 mmol/L 135-145 Serum or plasma potassium measurement (moles/volume) 3.6 mmol/L 3.6-5.0 Serum or plasma chloride measurement (moles/volume) 107 mmol/L 98-107 Carbon dioxide 25 mmol/L 21-32 Serum or plasma anion gap determination (moles/volume) 12 mmol/L 5-14 Serum or plasma urea nitrogen measurement (mass/volume ) 16 mg/dL 7-18 Serum or plasma creatinine measurement (mass/volume) 0.75 mg/dL 0.60-1.30 Serum or plasma urea nitrogen/creatinine mass ratio 21 NRG Serum or plasma creatinine measurement w ith calculation of estimated glomerular filtration rate > NRG Serum or plasma glucose measurement (mass/volume) 93 mg/dL 70-105 Serum or plasma calcium measurement (mass/volume) 9.3 mg/dL 8.5-10.1 Serum or plasma total bilirubin measurement (mass/volu me) 0.6 mg/dL 0.1-1.0 Serum or plasma alkaline phosphatase rell surement (enzymatic activity/volume) 81 U/L 40-136 Serum or plasma aspartate aminotransfera se measurement (enzymatic activity/volume) 17 U/L 5-34 Serum or plasma alanine aminotransferase measurement (enzymatic activity/volume) 18 U/L 0-55 Serum or plasma protein measurement (mass/volume) 6.7 g/dL 6.4-8.2 Serum or plasma albumin measurement (mass/volume) 4.0 g/dL 3.2-4.5 CALCIUM CORRECTED 9.3 mg/dL 8.5-10.1 Magnesium - 10/10/19 09:28 Magnesium 1.9 mg/dL 1.6-2.4 Serum or plasma troponin i.cardiac measu rement (mass/volume) - 10/10/19 09:28 Serum or plasma troponin i.cardiac measurement (mass/v olume) < ng/mL <0.028 Serum or plasma troponin i.cardiac measu rement (mass/volume) - 10/10/19 09:28 Serum or plasma troponin i.cardiac measurement (mass/v olume) < ng/mL <0.028 Myoglobin, serum - 10/10/19 09:28 Myoglobin, serum 31.7 ng/mL 10.0-92.0 Serum or plasma lithium measurement (mol es/volume) - 10/10/19 09:28 BNP PT 123.9 pg/mL <100.0 Methicillin resistant Staphylococcus aur eus (MRSA) screening culture - 10/10/19 11:53 Methicillin resistant Staphylococcus aureus (MRSA) scr eening culture NEG NRG Complete blood count (CBC) with automate d white blood cell (WBC) differential - 10/11/19 03:50 Blood leukocytes automated count (number/volume) 7.2 10*3/uL 4.3-11.0 Blood erythrocytes automated count (number/volume) 4.75 10*6/uL 4.35-5.85 Venous blood hemoglobin measurement (mass/volume) 14.8 g/dL 13.3-17.7 Blood hematocrit (volume fraction) 44 % 40-54 Automated erythrocyte mean corpuscular volume 92 [ foz_us] 80-99 Automated erythrocyte mean corpuscular h emoglobin (mass per erythrocyte) 31 pg 25-34 Automated erythrocyte mean corpuscular h emoglobin concentration measurement (mass/volume) 34 g/dL 32-36 Automated erythrocyte distribution width ratio 11. 7 % 10.0- 14.5 Automated blood platelet count (count/volume) 369 10*3/uL 130-400 Automated blood platelet mean volume measurement 9.0 [foz_us] 7.4-10.4 Automated blood neutrophils/100 leukocytes 64 % 42-75 Automated blood lymphocytes/100 leukocytes 23 % 12-44 Blood monocytes/100 leukocytes 12 % 0-12 Automated blood eosinophils/100 leukocytes 1 % 0-10 Automated blood basophils/100 leukocytes 0 % 0-10 Blood neutrophils automated count (number/volume) 4.7 10*3 1.8-7.8 Blood lymphocytes automated count (number/volume) 1.6 10*3 1.0-4.0 Blood monocytes automated count (number/volume) 0. 9 10*3 0.0-1.0 Automated eosinophil count 0.1 10*3/uL 0 .0-0.3 Automated blood basophil count (count/volume) 0.0 10*3/uL 0.0-0.1 Comprehensive metabolic panel - 10/11/19 03:50 Serum or plasma sodium measurement (moles/volume) 142 mmol/L 135-145 Serum or plasma potassium measurement (moles/volume) 4.0 mmol/L 3.6-5.0 Serum or plasma chloride measurement (moles/volume) 111 mmol/L 98-107 Carbon dioxide 23 mmol/L 21-32 Serum or plasma anion gap determination (moles/volume) 8 mmol/L 5-14 Serum or plasma urea nitrogen measurement (mass/volume ) 13 mg/dL 7-18 Serum or plasma creatinine measurement (mass/volume) 0.69 mg/dL 0.60-1.30 Serum or plasma urea nitrogen/creatinine mass ratio 19 NRG Serum or plasma creatinine measurement w ith calculation of estimated glomerular filtration rate > NRG Serum or plasma glucose measurement (mass/volume) 94 mg/dL 70-105 Serum or plasma calcium measurement (mass/volume) 8.6 mg/dL 8.5-10.1 Serum or plasma total bilirubin measurement (mass/volu me) 0.7 mg/dL 0.1-1.0 Serum or plasma alkaline phosphatase rell surement (enzymatic activity/volume) 58 U/L 40-136 Serum or plasma aspartate aminotransfera se measurement (enzymatic activity/volume) 14 U/L 5-34 Serum or plasma alanine aminotransferase measurement (enzymatic activity/volume) 15 U/L 0-55 Serum or plasma protein measurement (mass/volume) 5.4 g/dL 6.4-8.2 Serum or plasma albumin measurement (mass/volume) 3.4 g/dL 3.2-4.5 CALCIUM CORRECTED 9.1 mg/dL 8.5-10.1 Lipid 1996 panel - 10/11/19 03:50 Serum or plasma triglyceride measurement (mass/volume) 96 mg/dL <150 Serum or plasma cholesterol measurement (mass/volume) 107 mg/dL < 200 Serum or plasma cholesterol in HDL measurement (mass/v olume) 21 mg/dL 40-60 Cholesterol in LDL [mass/volume] in serum or plasma by direct assay 77 mg/dL 1-129 Serum or plasma cholesterol in VLDL measurement (mass/ volume) 19 mg/dL 5-40 THYROID STIMULATING HORMONE - 10/11/19 0 3:50 THYROID STIMULATING HORMONE 0.66 u[iU]/mL 0.35-4.94 Complete blood count (CBC) with automate d white blood cell (WBC) differential - 04/22/20 07:58 Blood leukocytes automated count (number/volume) 6.8 10*3/uL 4.3-11.0 Blood erythrocytes automated count (number/volume) 5.47 10*6/uL 4.35-5.85 Venous blood hemoglobin measurement (mass/volume) 16.9 g/dL 13.3-17.7 Blood hematocrit (volume fraction) 50 % 40-54 Automated erythrocyte mean corpuscular volume 91 [ foz_us] 80-99 Automated erythrocyte mean corpuscular h emoglobin (mass per erythrocyte) 31 pg 25-34 Automated erythrocyte mean corpuscular h emoglobin concentration measurement (mass/volume) 34 g/dL 32-36 Automated erythrocyte distribution width ratio 12. 2 % 10.0- 14.5 Automated blood platelet count (count/volume) 224 10*3/uL 130-400 Automated blood platelet mean volume measurement 10.3 [foz_us] 7.4-10.4 Automated blood neutrophils/100 leukocytes 60 % 42-75 Automated blood lymphocytes/100 leukocytes 27 % 12-44 Blood monocytes/100 leukocytes 11 % 0-12 Automated blood eosinophils/100 leukocytes 2 % 0-10 Automated blood basophils/100 leukocytes 1 % 0-10 Blood neutrophils automated count (number/volume) 4.1 10*3 1.8-7.8 Blood lymphocytes automated count (number/volume) 1.8 10*3 1.0-4.0 Blood monocytes automated count (number/volume) 0. 7 10*3 0.0-1.0 Automated eosinophil count 0.1 10*3/uL 0 .0-0.3 Automated blood basophil count (count/volume) 0.1 10*3/uL 0.0-0.1 Comprehensive metabolic panel - 04/22/20 07:58 Serum or plasma sodium measurement (moles/volume) 140 mmol/L 135-145 Serum or plasma potassium measurement (moles/volume) 4.5 mmol/L 3.6-5.0 Serum or plasma chloride measurement (moles/volume) 107 mmol/L 98-107 Carbon dioxide 21 mmol/L 21-32 Serum or plasma anion gap determination (moles/volume) 12 mmol/L 5-14 Serum or plasma urea nitrogen measurement (mass/volume ) 25 mg/dL 7-18 Serum or plasma creatinine measurement (mass/volume) 1.11 mg/dL 0.60-1.30 Serum or plasma urea nitrogen/creatinine mass ratio 23 NRG Serum or plasma creatinine measurement w ith calculation of estimated glomerular filtration rate > NRG Serum or plasma glucose measurement (mass/volume) 124 mg/dL 70-105 Serum or plasma calcium measurement (mass/volume) 10.0 mg/dL 8.5-10.1 Serum or plasma total bilirubin measurement (mass/volu me) 1.1 mg/dL 0.1-1.0 Serum or plasma alkaline phosphatase rell surement (enzymatic activity/volume) 59 U/L 40-136 Serum or plasma aspartate aminotransfera se measurement (enzymatic activity/volume) 21 U/L 5-34 Serum or plasma alanine aminotransferase measurement (enzymatic activity/volume) 22 U/L 0-55 Serum or plasma protein measurement (mass/volume) 7.6 g/dL 6.4-8.2 Serum or plasma albumin measurement (mass/volume) 4.8 g/dL 3.2-4.5 PT panel in platelet poor plasma by coag ulation assay - 04/22/20 07:58 Prothrombin time (PT) in platelet poor plasma by coagu lation assay 17.2 s 12.2-14.7 INR in platelet poor plasma or blood by coagulation as say 1.3 0.8-1.4 Activated partial thromboplastin time (a PTT) in platelet poor plasma bycoagulation assay - 04/22/20 07:58 Activated partial thromboplastin time (a PTT) in platelet poor plasma bycoagulation assay 47 s 24-35 Magnesium - 04/22/20 07:58 Magnesium 2.1 mg/dL 1.6-2.4 Myoglobin, serum - 04/22/20 07:58 Myoglobin, serum 41.2 ng/mL 10.0-92.0 Serum or plasma troponin i.cardiac measu rement (mass/volume) - 04/22/20 07:58 Serum or plasma troponin i.cardiac measurement (mass/v olume) < ng/mL <0.028 Serum or plasma troponin i.cardiac measu rement (mass/volume) - 04/22/20 11:30 Serum or plasma troponin i.cardiac measurement (mass/v olume) 0.049 ng/mL <0.028 Encounters ACCT No. Visit Date/Time Discharge Status Pt. Type Provider Facility Loc./Unit Complaint [id number] 05/06/2014 13:46:00 05/06/2014 23:59: 59 CLS Outpatient DAI BAINSELISSA [id number] 04/22/2014 16:18:00 04/22/2014 23:59: 59 CLS Outpatient DAI BAINSELISSA [id number] 03/11/2014 13:45:00 03/11/2014 23:59: 59 CLS Outpatient LALA ELISSA [id number] 08/14/2013 08:27:00 08/14/2013 23:59: 59 CLS Outpatient LALA ELISSA [id number] 11/21/2019 08:38:00 23:59:59 CLS Outpatient DAYANNA BATISTA MD [facility] CATH PAF [id number] 10/10/2019 10:46:00 14:02:00 DIS Inpatient LEOBARDO HERNANDEZ DO, [facility] ICU A-FIB WITH AVR [id number] 08/15/2019 06:58:00 12:00:00 DIS Outpatient DAYANNA BATISTA MD [facility] CATH CAD, NSVT, HTN, HLP, PV C'S [id number] 08/10/2019 00:11:00 23:59:59 CLS Preadmit DAYANNA BATISTA MD [facility] CARD CAD,PALPITATIONS,HTN,CH EST PAIN [id number] 05/11/2019 11:04:00 00:01:00 DIS Outpatient DAYANNA BATISTA MD [facility] CARD CAD,PALPITATIONS,HTN,CH EST PAIN [id number] 06/18/2019 07:27:00 23:59:59 CLS Outpatient DAYANNA BATISTA MD [facility] CARD CAD,PALPITATIONS,HTN,CH EST PAIN [id number] 05/11/2019 10:57:00 019 23:59:59 CLS Outpatient DAYANNA BATISTA MD [facility] CARD CAD,PALPITATIONS,HTN,CH EST PAIN [id number] 01/12/2018 10:49:00 018 23:59:59 CLS Outpatient DORA PATEL MD [facility] RAD ENLARGED LYMPH NODE [id number] 12/12/2017 08:53:00 018 23:59:59 CLS Outpatient MATEO JOSÉ [facility] RAD MASS OF RT OF NECK [id number] 08/16/2017 11:56:00 017 23:59:59 CLS Outpatient DAYANNA BATISTA MD [facility] CARD CAD I25.10 [id number] 08/10/2017 07:02:00 23:59:59 CLS Outpatient DAYANNA BATISTA MD [facility] CARD CAD I25.10 [id number] 09/08/2016 08:00:00 016 23:59:59 CLS Preadmit CLEMENCIA WALKER [facility] CARD CHEST PAIN [id number] 06/09/2016 07:54:00 016 00:01:00 DIS Outpatient SAIDA WALKER [facility] CARD CHEST PAIN [id number] 06/17/2016 12:54:00 016 11:47:00 DIS Outpatient DAYANNA BATISTA MD [facility] CATH NSVT,CP [id number] 05/03/2014 07:46:00 014 23:59:59 CLS Outpatient CHRISTY HERNANDEZ [facility] RAD HIP AND SCROTAL PAIN [id number] 08/20/2013 08:36:00 013 23:59:59 CLS Outpatient CHRISTY HERNANDEZ [facility] RAD TENDER SWOLLEN AREA LOW ER FLANK [id number] 04/22/2020 12:39:[address] Inpatient BESSIE MCCARTY MD [facility] CSD CHEST PAIN [id number] 04/03/2015 15:05:00 Document Registration [id number] 04/03/2015 15:05:00 Document Registration [id number] 04/03/2015 15:05:00 Document Registration [id number] 04/03/2015 15:05:00 Document Registration [id number] 04/03/2015 15:05:00 Document Registration [id number] 10/18/2012 08:08:00 Document Registration [id number] 03/22/2012 10:58:00 Document Registration [id number] 10/30/2008 12:47:00 Document Registration [id number] 05/03/2008 10:02:00 Document Registration [id number] 05/09/2006 11:55:00 Document Registration [id number] 04/17/2020 09:00:00 04/17/2020 23:59:5 9 CLS Outpatient MATEO JOSÉ APRN [facility] [id number] 03/28/2019 11:00:00 Document Registration [id number] 03/27/2019 09:55:00 Document Registration [id number] 10/21/2017 10:40:00 Document Registration
[2020-04-22] MEDS ORDERED: DILT240C91 PO (16:05)
[2020-04-22] MEDS ORDERED: FLEC50TA PO (16:05)
[2020-04-22] MEDS ORDERED: DICL75TA2 PO (16:05)
[2020-04-22] MEDS ORDERED: APIX5TAB PO (16:05)
--- NOTE | 2020-04-22 16:07 | NUR ---
SPOKE WITH THE PT (HE HAD A MED LIST THAT I MADE A COPY OF AND ATTACHED TO HIS CHART) WENT THRU THE EXT MED HISTORY TO COMPLETE THE MED REC THE MED LIST FROM THE PT HAD ALL MEDS EXCEPT DICLOFENAC- IT IS A NEW MED AND PT SAID HE HADNT HAD A CHANCE TO UPDATE HIS LIST ALL MEDS ARE LISTED ON THE EXT MED HISTORY OTC MEDS: MTV FISH OIL NIACIN GARLIC MAGNESIUM
--- NOTE | 2020-04-22 16:35 | Consultation-Cardiology ---
HPI-Cardiology Cardiology Consultation Date of Consultation 04/22/20 Date of Admission Time Seen by Provider: 16:33 Indication: chest pain HPI 69-year-old gentleman with history of coronary artery disease, paroxysmal atrial ablation, nonsustained ventricular tachycardiac, was in his usual state of health, woke up this morning with sudden onset chest pain in the retrosternal area dull achiness radiating to the neck jaw and back. Persistent until he arrived to the emergency room, did not take nitroglycerin at home. On arrival to the ER he was feeling better, since then he has been feeling better. His second troponin was elevated, denied any active chest pain, EKG did not show any acute abnormality Home Medications & Allergies Allergies: Coded Allergies: enalapril (Verified Adverse Reaction, Unknown, cough, 06/17/16) Home Medication List Reviewed: Yes [id number] Hx Patient Social History Marital Status: Employed/Student: employed Alcohol Use: Occasionally Uses Recreational Drug Use: Yes (beer daily) Drug of Choice: POT Smoking Status: Former Smoker Type Used: Cigarettes 2nd Hand Smoke Exposure: Yes Recent Foreign Travel: No Recent Infectious Disease Expo: No Recent Hopitalizations: No Immunizations Up To Date Tetanus Booster (TDap): More than 5yrs Date of Pneumonia Vaccine: Sep 21, 2019 Date of Influenza Vaccine: Sep 21, 2019 Past Medical History Discussed below Family Medical History Family Medical Hx Noncontributory to his current condition Review of Systems-General Review of Systems Constitutional: no symptoms reported, see HPI EENTM: see HPI, no symptoms reported Respiratory: see HPI; No cough, No dyspnea on exertion, No hemoptysis, No orthopnea, No phlegm, No short of breath, No stridor, No wheezing, No other Cardiovascular: see HPI, chest pain; No edema, No Hx of Intervention; palpitations; No syncope, No vascular heart diseas, No other Gastrointestinal: no symptoms reported, see HPI Genitourinary: no symptoms reported, see HPI Musculoskeletal: no symptoms reported, see HPI Skin: no symptoms reported, see HPI Psychiatric/Neurological: No Symptoms Reported, See HPI Reviewed Test Results Reviewed Test Results Lab Laboratory Tests Test 04/22/20 07:58 04/22/20 11:30 Range/Units White Blood Count 6.8 4.3-11.0 10^3/uL Red Blood Count 5.47 4.35-5.85 10^6/uL Hemoglobin 16.9 13.3-17.7 G/DL Hematocrit 50 40-54 % Mean Corpuscular Volume 91 80-99 FL Mean Corpuscular Hemoglobin 31 25-34 PG Mean Corpuscular Hemoglobin Concent 34 32-36 G/DL Red Cell Distribution Width 12.2 10.0-14.5 % Platelet Count 224 130-400 10^3/uL Mean Platelet Volume 10.3 7.4-10.4 FL Neutrophils (%) (Auto) 60 42-75 % Lymphocytes (%) (Auto) 27 12-44 % Monocytes (%) (Auto) 11 0-12 % Eosinophils (%) (Auto) 2 0-10 % Basophils (%) (Auto) 1 0-10 % Neutrophils # (Auto) 4.1 1.8-7.8 X 10^3 Lymphocytes # (Auto) 1.8 1.0-4.0 X 10^3 Monocytes # (Auto) 0.7 0.0-1.0 X 10^3 Eosinophils # (Auto) 0.1 0.0-0.3 10^3/uL Basophils # (Auto) 0.1 0.0-0.1 10^3/uL Prothrombin Time 17.2 H 12.2-14.7 SEC INR Comment 1.3 0.8-1.4 Activated Partial Thromboplast Time 47 H 24-35 SEC Sodium Level 140 135-145 MMOL/L Potassium Level 4.5 3.6-5.0 MMOL/L Chloride Level 107 98-107 MMOL/L Carbon Dioxide Level 21 21-32 MMOL/L Anion Gap 12 5-14 MMOL/L Blood Urea Nitrogen 25 H 7-18 MG/DL Creatinine 1.11 0.60-1.30 MG/DL Estimat Glomerular Filtration Rate > 60 BUN/Creatinine Ratio 23 Glucose Level 124 H 70-105 MG/DL Calcium Level 10.0 8.5-10.1 MG/DL Corrected Calcium 8.5-10.1 MG/DL Magnesium Level 2.1 1.6-2.4 MG/DL Total Bilirubin 1.1 H 0.1-1.0 MG/DL Aspartate Amino Transf (AST/SGOT) 21 5-34 U/L Alanine Aminotransferase (ALT/SGPT) 22 0-55 U/L Alkaline Phosphatase 59 40-136 U/L Myoglobin 41.2 10.0-92.0 NG/ML Troponin I < 0.028 0.049 H <0.028 NG/ML Total Protein 7.6 6.4-8.2 GM/DL Albumin 4.8 H 3.2-4.5 GM/DL Physical Exam Physical Exam Vital Signs Vital Signs - First Documented 04/22/20 07:45 Temp 36.0 Pulse 70 Resp 18 B/P (MAP) 198/100 (132) Pulse Ox 98 O2 Delivery Room Air Capillary Refill : Less Than 3 Seconds Height, Weight, BMI Height: 5'11.00" Weight: 161lbs. 0.0oz. 73.313063cw; 20.00 BMI Method:Stated General Appearance: No Apparent Distress, WD/WN, Thin HEENT: PERRL/EOMI, Normal ENT Inspection Neck: Normal Inspection Respiratory: Chest Non Tender, Lungs Clear, Normal Breath Sounds, No Accessory Muscle Use, No Respiratory Distress Cardiovascular: Regular Rate, Rhythm, No Edema, No Murmur Gastrointestinal: Normal Bowel Sounds, Non Tender, Soft Extremity: Normal Inspection, Non Tender, No Calf Tenderness, No Pedal Edema Neurologic/Psychiatric: Alert, Oriented x3, No Motor/Sensory Deficits, Normal Mood/Affect Skin: Normal Color, Warm/Dry A/P-Cardiology Admission Diagnosis Non-ST elevation myocardial infarctions Coronary artery disease Hypertension Paroxysmal atrial fibrillation Assessment/Plan Chest pain, NSTMI, planning for cardiac catheterization in the morning Paroxysmal atrial fibrillation, was evaluated in the ER September 2019 for A. fib with RVR, converted with Cardizem. He is maintained on Eliquis and diltiazem, Bystolic. Status post Linq implantation on November 21, 2019 for further monitoring of his atrial fibrillation. Nonsustained ventricular tachycardia-underwent Holter monitor earlier in the year revealing multiple episodes of nonsustained ventricular tachycardia. underwent 30 day event monitor April 2019 revealing episode of 4 beat nonsustained ventricular tachycardia, he was asymptomatic at the time. Maintained on beta evan. As a loop recorder implanted in November 2019 Coronary artery disease-underwent cardiac catheterization June 17, 2016 revealing proximal/ostial left circumflex 80 percent eccentric stenosis. Successful primary stenting with excellent results with careful positioning using 3 x 12 mm Promus Premier drug-eluting stent. Most recent cardiac catheterization in August 2019 revealed patent stent with nonobstructive disease otherwise. I am planning to repeat cardiac catheterization History of PVCs, maintained on Bystolic, continue to monitor. Hypertension, continue to monitor. Hyperlipidemia, lipid profile was done on April 18, 2019 showing total cholesterol 218, HDL 48, triglyceride 96, LDL 150, started on Lipitor 10 mg daily. Continue to monitor Mild nonobstructive carotid artery stenosis per carotid duplex done in September 2018, reevaluate carotid duplex. Clinical Quality Measures AMI/AHF: ASA po Prior to arrival: DAYANNA Fernández MD Apr 22, 2020 4:35 pm
[2020-04-22] MEDS ORDERED: CATHETER FLUSH 10 ML SYR IV PRN (16:45)
[2020-04-22 16:55] VITALS: BP 146/86
[2020-04-22] MEDS: NS IV 1000 ML 1,000 ML IV SCH (18:08)
[2020-04-22 20:00] VITALS: BP 122/67
[2020-04-22] MEDS: FLECAINIDE 100 MG (TAMBOCOR) TAB PO SCH (20:40)
[2020-04-22] MEDS ORDERED: NON-FORMULARY MEDICATION 1 EA EA (Flecainide Acetate 50 MG) PO SCH (21:00)
--- NOTE | 2020-04-22 21:13 | History & Physical ---
HPI History of Present Illness: 69 yo M with known CAD that presented with sub sternal chest pain that started today. States that he had nitro at home but did not think to take it. Denies any radiation of pain or shortness of breath. States that the pain is gone now after the medications in the ER. States that today he started a new medication for his pain Diclofenac and the pain started shortly after taking medication. States that he had a cath last Aug that was normal but it has been a while since he had a stress test. Source: patient, spouse Exam Limitations: no limitations Date seen by provider: Apr 22, 2020 Time Seen by Provider: 18:00 Attending Physician Bessie Fisher MD PCP Center/[facility] Consult Date of Admission Apr 22, 2020 at 12:39 Home Medications Home Medications Reviewed patient Home Medication Reconciliation performed by pharmacy medication reconciliations certified pest control technician and/or nursing. Patients Allergies have been reviewed. Allergies Coded Allergies: enalapril (Verified Adverse Reaction, Unknown, cough, 06/17/16) RWO-Xhqcdt-Gdxesl Hx Patient Social History Marrital Status: Living Status: Lives with Employed/Student: employed Alcohol Use: Occasionally Uses Recreational Drug Use: Yes (beer daily) Drug of Choice: POT Smoking Status: Former Smoker Type Used: Cigarettes 2nd Hand Smoke Exposure: Yes Recent Foreign Travel: No Contact w/other who traveled: No Recent Hopitalizations: No Recent Infectious Disease Expo: No Immunizations Up To Date Tetanus Booster (TDap): More than 5yrs Date of Pneumonia Vaccine: Sep 21, 2019 Date of Influenza Vaccine: Sep 21, 2019 Past Medical History CAD Atrial Fibrillation s/p Ablation HTN HLD Carotid Stenosis: mild Review of Systems (CHC) Constitutional: no symptoms reported; No chills, No dizziness, No fever EENTM: no symptoms reported; No mouth pain, No nose congestion, No throat pain Respiratory: no symptoms reported; No cough, No dyspnea on exertion, No short of breath Cardiovascular: chest pain; No edema, No palpitations Gastrointestinal: no symptoms reported; No abdominal pain, No constipation, No diarrhea, No loss of appetite, No nausea, No vomiting Genitourinary: no symptoms reported; No dysuria, No frequency, No hematuria Musculoskeletal: no symptoms reported; No back pain, No joint pain, No muscle pain Skin: no symptoms reported; No lesions, No rash Psychiatric/Neurological: No Symptoms Reported; Denies Headache, Denies Numbness, Denies Weakness Reviewed Test Results Reviewed Test Results Lab Laboratory Tests Test 04/22/20 07:58 04/22/20 11:30 Range/Units White Blood Count 6.8 4.3-11.0 10^3/uL Red Blood Count 5.47 4.35-5.85 10^6/uL Hemoglobin 16.9 13.3-17.7 G/DL Hematocrit 50 40-54 % Mean Corpuscular Volume 91 80-99 FL Mean Corpuscular Hemoglobin 31 25-34 PG Mean Corpuscular Hemoglobin Concent 34 32-36 G/DL Red Cell Distribution Width 12.2 10.0-14.5 % Platelet Count 224 130-400 10^3/uL Mean Platelet Volume 10.3 7.4-10.4 FL Neutrophils (%) (Auto) 60 42-75 % Lymphocytes (%) (Auto) 27 12-44 % Monocytes (%) (Auto) 11 0-12 % Eosinophils (%) (Auto) 2 0-10 % Basophils (%) (Auto) 1 0-10 % Neutrophils # (Auto) 4.1 1.8-7.8 X 10^3 Lymphocytes # (Auto) 1.8 1.0-4.0 X 10^3 Monocytes # (Auto) 0.7 0.0-1.0 X 10^3 Eosinophils # (Auto) 0.1 0.0-0.3 10^3/uL Basophils # (Auto) 0.1 0.0-0.1 10^3/uL Prothrombin Time 17.2 H 12.2-14.7 SEC INR Comment 1.3 0.8-1.4 Activated Partial Thromboplast Time 47 H 24-35 SEC Sodium Level 140 135-145 MMOL/L Potassium Level 4.5 3.6-5.0 MMOL/L Chloride Level 107 98-107 MMOL/L Carbon Dioxide Level 21 21-32 MMOL/L Anion Gap 12 5-14 MMOL/L Blood Urea Nitrogen 25 H 7-18 MG/DL Creatinine 1.11 0.60-1.30 MG/DL Estimat Glomerular Filtration Rate > 60 BUN/Creatinine Ratio 23 Glucose Level 124 H 70-105 MG/DL Calcium Level 10.0 8.5-10.1 MG/DL Corrected Calcium 8.5-10.1 MG/DL Magnesium Level 2.1 1.6-2.4 MG/DL Total Bilirubin 1.1 H 0.1-1.0 MG/DL Aspartate Amino Transf (AST/SGOT) 21 5-34 U/L Alanine Aminotransferase (ALT/SGPT) 22 0-55 U/L Alkaline Phosphatase 59 40-136 U/L Myoglobin 41.2 10.0-92.0 NG/ML Troponin I < 0.028 0.049 H <0.028 NG/ML Total Protein 7.6 6.4-8.2 GM/DL Albumin 4.8 H 3.2-4.5 GM/DL Physical Exam-(CHC) Physical Exam Vital Signs VS - Last 72 Hours, by Label 04/22/20 04/22/20 04/22/20 04/22/20 07:45 13:26 14:06 16:00 Temp 36.0 36.7 Pulse 70 42 46 58 Resp 18 18 18 B/P (MAP) 198/100 (132) 144/88 146/86 (106) Pulse Ox 98 98 97 O2 Delivery Room Air Room Air Room Air 04/22/20 04/22/20 04/22/20 16:30 16:55 20:00 Temp 36.7 37.0 Pulse 58 85 Resp 18 18 B/P (MAP) 146/86 122/67 (85) Pulse Ox 98 97 98 O2 Delivery Room Air Room Air Room Air Capillary Refill : Less Than 3 Seconds General Appearance: WD/WN, no apparent distress HEENT: PERRL/EOMI Neck: non-tender, full range of motion, supple Respiratory: chest non-tender, lungs clear, normal breath sounds, no respiratory distress, no accessory muscle use Cardiovascular: normal peripheral pulses, regular rate, rhythm, no edema, no m urmur Gastrointestinal: normal bowel sounds, non tender, soft, no organomegaly Back: no vertebral tenderness Extremities: normal range of motion, non-tender, normal inspection, no pedal edema, no calf tenderness, normal capillary refill Neurologic/Psychiatric: 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, no motor/sensory deficits, alert, normal mood/affect, oriented x 3 Skin: normal color, warm/dry Lymphatic: no adenopathy Assessment/Plan Assessment/Plan Admission Status: Observation (1) Non-ST elevation MT (NSTEMI) Status: Acute Assessment & Plan: - Dr Blackburn Consulted and managing, will monitor ON (2) Atrial fibrillation Status: Chronic Assessment & Plan: - Rate controlled, continue home meds Qualifiers: Qualified Codes: I48.91 - Unspecified atrial fibrillation (3) CAD (coronary artery disease) Status: Chronic Qualifiers: Qualified Codes: I25.118 - Atherosclerotic heart disease of [place] coronary artery with other forms of angina pectoris (4) HTN (hypertension) Status: Chronic Assessment & Plan: - Continue home meds Qualifiers: Qualified Codes: I10 - Essential (primary) hypertension (5) HLP Status: Chronic Assessment & Plan: - Continue statin Clinical Quality Measures AMI/AHF: ASA po Prior to arrival: No DVT/VTE Risk/Contraindication: Risk Factor Score Per Nursin RFS Level Per Nursing on Admit: 2=Moderate Copy Copies To 1: BESSIE Luque MD Apr 22, 2020 21:12
[2020-04-22 23:56] VITALS: BP 123/63
[2020-04-23] VITALS (12 sets, daily range): BP systolic 126–156; BP diastolic 60–85
[2020-04-23 03:47] LABS: BASOPHILS # (AUTO) 0.1 10^3/uL (0.0-0.1); BASOPHILS % (AUTO) 1 % (0-10); EOSINOPHILS # (AUTO) 0.1 10^3/uL (0.0-0.3); EOSINOPHILS % (AUTO) 2 % (0-10); HEMATOCRIT 44 % (40-54); HEMOGLOBIN 14.8 G/DL (13.3-17.7); LYMPHOCYTES # (AUTO) 2.1 X 10^3 (1.0-4.0); LYMPHOCYTES % (AUTO) 29 % (12-44); MEAN CORPUSCULAR HEMOGLOBIN 31 PG (25-34); MEAN CORPUSCULAR HGB CONC 34 G/DL (32-36); MEAN CORPUSCULAR VOLUME 92 FL (80-99); MEAN PLATELET VOLUME 10.3 FL (7.4-10.4); MONOCYTES # (AUTO) 0.7 X 10^3 (0.0-1.0); MONOCYTES % (AUTO) 10 % (0-12); NEUTROPHILS # (AUTO) 4.2 X 10^3 (1.8-7.8); NEUTROPHILS % (AUTO) 58 % (42-75); PLATELET COUNT 212 10^3/uL (130-400); RED CELL DISTRIBUTION WIDTH 12.3 % (10.0-14.5); WHITE BLOOD COUNT 7.2 10^3/uL (4.3-11.0)
[2020-04-23] MEDS: NS IV 1000 ML 1,000 ML IV SCH (03:55)
[2020-04-23 04:01] LABS: ALBUMIN 3.8 GM/DL (3.2-4.5); CHLORIDE 109 MMOL/L (98-107); POTASSIUM 4.4 MMOL/L (3.6-5.0); SODIUM 141 MMOL/L (135-145)
[2020-04-23 04:02] LABS: CALCIUM 8.9 MG/DL (8.5-10.1)
[2020-04-23 04:03] LABS: TRIGLYCERIDES 179 MG/DL (<150); VLDL CHOLESTEROL 36 MG/DL (5-40)
[2020-04-23 04:04] LABS: GLUCOSE 80 MG/DL (70-105)
[2020-04-23 04:05] LABS: BILIRUBIN,TOTAL 0.7 MG/DL (0.1-1.0); CARBON DIOXIDE 21 MMOL/L (21-32)
[2020-04-23 04:07] LABS: ALKALINE PHOSPHATASE 53 U/L (40-136); GFR ESTIMATED > 60
[2020-04-23 04:08] LABS: CHOLESTEROL 143 MG/DL (< 200)
[2020-04-23 04:09] LABS: BUN/CREATININE RATIO 21; HDL CHOLESTEROL 24 MG/DL (40-60)
[2020-04-23 04:10] LABS: ALANINE AMINOTRANSFERASE 19 U/L (0-55)
[2020-04-23] MEDS ORDERED: HEParin (CATH LAB) 0 ML IV ONE (06:57)
[2020-04-23] MEDS ORDERED: LIDOCAINE 1% INJ 20 ML 20 ML VIAL ONE ×2 (06:57→14:29)
[2020-04-23] MEDS ORDERED: MIDAZOLAM 5 MG/5 ML (VERSED) VIAL ONE ×2 (07:03→15:35)
[2020-04-23] MEDS ORDERED: fentaNYL INJECTION 100 MCG/2 ML AMP ONE ×2 (07:03→15:35)
[2020-04-23] MEDS ORDERED: NS IV 1000 ML 0 ML ONE (07:15)
[2020-04-23] MEDS ORDERED: OMEGA 3 (FISH OIL) 1000 MG CAP PO SCH (08:00)
--- NOTE | 2020-04-23 08:00 | NUR ---
Patient to stress test via wheel chair at 0800. Patient back from stress test at 1026 via wheel chair at 1026.
--- NOTE | 2020-04-23 08:29 | Cardiology Progress Note ---
Subjective Date Seen by Provider: Apr 23, 2020 Time Seen by Provider: 08:27 Subjective/Events-last exam Patient is down in nuclear med room. Denies any further chest pain. Review of Systems General: No Chills, No Night Sweats, No Fatigue, No Malaise, No Appetite, No Other HEENT: No Head Aches, No Visual Changes, No Eye Pain, No Ear Pain, No Dysphasia, No Sinus Congestion, No Post Nasal Drip, No Sore Throat, No Other Pulmonary: Dyspnea; No Cough, No Pleuritic Chest Pain, No Other Cardiovascular: No: Chest Pain, Palpitations, Orthopnea, Paroxysmal Noc. Dyspnea, Edema, Lt Headedness, Other Objective-Cardiology Exam Last Set of Vital Signs Vital Signs 04/23/20 15:57 Temp 36.8 Pulse 65 Resp 18 B/P (MAP) 150/78 (102) Pulse Ox 99 O2 Delivery Room Air Capillary Refill : Less Than 3 Seconds I&O Intake and Output 04/23/20 00:00 Intake Total 200 ml Balance 200 ml Intake Oral 200 ml # Voids 1 Daily Weight Change Yes, 2-13 lbs Yes, 2-13 lbs General: Alert, Oriented X3, Cooperative HEENT: Atraumatic, PERRLA Neck: Supple, No JVD, No Thyromegaly Lungs: Clear to Auscultation, Normal Air Movement Heart: Regular Rate, Normal S1, Normal S2, No Murmurs Abdomen: Normal Bowel Sounds, Soft, No Tenderness, No Hepatosplenomegaly, No Masses Extremities: No Clubbing, No Cyanosis, No Edema, Normal Pulses, No T enderness/Swelling Skin: No Rashes, No Breakdown, No Significant Lesion Neuro: Normal Speech, Cranial Nerves 3-12 NL Psych/Mental Status: Mental Status NL, Mood NL Results Lab Laboratory Tests 04/23/20 03:13 A/P-Cardiology Admission Diagnosis Non-ST elevation myocardial infarctions Coronary artery disease Hypertension Paroxysmal atrial fibrillation Assessment/Plan Chest pain, nonspecific etiology, planning for LST this morning. Paroxysmal atrial fibrillation, was evaluated in the ER September 2019 for A. fib with RVR, converted with Cardizem. He is maintained on Eliquis and diltiazem, Bystolic. Status post Linq implantation on November 21, 2019 for further monitoring of his atrial fibrillation. Nonsustained ventricular tachycardia-underwent Holter monitor earlier in the year revealing multiple episodes of nonsustained ventricular tachycardia. underwent 30 day event monitor April 2019 revealing episode of 4 beat nonsustained ventricular tachycardia, he was asymptomatic at the time. Maintained on beta evan. As a loop recorder implanted in November 2019 Coronary artery disease-underwent cardiac catheterization June 17, 2016 revealing proximal/ostial left circumflex 80 percent eccentric stenosis. Successful primary stenting with excellent results with careful positioning using 3 x 12 mm Promus Premier drug-eluting stent. Most recent cardiac catheterization in August 2019 revealed patent stent with nonobstructive disease otherwise. History of PVCs, maintained on Bystolic, continue to monitor. Hypertension, continue to monitor. Hyperlipidemia, lipid profile was done on April 18, 2019 showing total cholesterol 218, HDL 48, triglyceride 96, LDL 150, started on Lipitor 10 mg daily. Continue to monitor Mild nonobstructive carotid artery stenosis, continue to monitor. Patient was seen and evaluated with [place], examination performed, management plan was discussed, agree with the current scribed note, I made few changes to the note using Italic font Patient was seen and evaluated, stress test was abnormal with ischemia in the anterior wall Cardiac catheter was done showing nonobstructive disease. Planning to discharge Clinical Quality Measures AMI/AHF: ASA po Prior to arrival: No DVT/VTE Risk/Contraindication: Risk Factor Score Per Nursin RFS Level Per Nursing on Admit: 2=Moderate ENID FRANCO Apr 23, 2020 08:29 DAYANNA BATISTA MD Apr 23, 2020 16:14
[2020-04-23] MEDS ORDERED: REGADENOSON 0.4 MG/5 ML SYR (LEXISCAN) IV ONE ×2 (08:30→09:00)
[2020-04-23] MEDS ORDERED: NEBIVOLOL HCL 20 MG PO SCH (09:00)
[2020-04-23] MEDS ORDERED: PANTOPRAZOLE 20 MG TABLET (PROTONIX) PO SCH (09:00)
[2020-04-23] MEDS ORDERED: ASPIRIN E.C. 81 MG (ECOTRIN) TAB PO SCH (09:00)
[2020-04-23] MEDS ORDERED: OMEPRAZOLE 20 MG (PriLOSEC) CAP NON-FORMULARY PO SCH (09:00)
[2020-04-23] MEDS ORDERED: LOSARTAN 50 MG (COZAAR) TAB PO SCH (09:00)
[2020-04-23] MEDS: FLECAINIDE 100 MG (TAMBOCOR) TAB PO SCH (10:41)
[2020-04-23] MEDS ORDERED: HEParin (CATH LAB) 2,000 ML IV ONE (14:29)
[2020-04-23] MEDS ORDERED: NS IV 1000 ML 1,000 ML ONE (15:35)
[2020-04-23] MEDS ORDERED: VERAPAMIL 5 MG/2 ML (CALAN) VIAL IV ONE (15:53)
[2020-04-23] MEDS ORDERED: HEParin 1000 UNIT/ML (10ML VIAL) FOR BOLUS ONE (15:53)
[2020-04-23] MEDS ORDERED: NITRO DRIP 25000 MCG/D5W 250 ML IV ONE (15:53)
--- NOTE | 2020-04-23 16:14 | Cardiac Procedure Note-CS/ASA ---
Pre-Procedure Note Pre-Op Procedure Note H&P Reviewed The H&P was reviewed, patient examined and no changes noted. Date H&P Reviewed: Apr 23, 2020 Time H&P Reviewed: 13:00 Conscious Sedation Pre-Proced Time 13:00 ASA Score 3 For ASA 3 and 4: Consider anesthesia and medical clearance. Also, for patients with a history of failed moderate sedation consider anesthesia. Airway Lungs Heart ASA score ASA 1: a normal healthy patient ASA 2: a patient with a mild systemic disease (mid diabetes, controlled hypertension, obesity x ASA 3: a patient with a severe systemic disease that limits activity (angina, COPD, prior Myocardial infarction) ASA 4: a patient with an incapacitating disease that is a constant threat to life (CHF, renal failure) ASA 5: a moribund patient not expected to survive 24 hrs. (ruptured aneurysm) ASA 6: a declared brain- patient whose organs are being harvested. For emergent operations, add the letter E after the classification Mallampati Classification Grade 3 Sedation Plan Analgesia, Amnesia, Plan communicated to team members, Discussed options with patient/fam, Discussed risks with patient/fam The patient is an appropriate candidate to undergo the planned procedure, sedation, and anesthesia. The patient immediately re-assessed prior to indication. DAYANNA BATISTA MD Apr 23, 2020 16:14
--- NOTE | 2020-04-23 16:17 | Discharge Summary ---
Diagnosis/Chief Complaint Date of Admission Apr 22, 2020 at 12:39 Date of Discharge Discharge Diagnosis Problems/Diagnosis: (1) Non-ST elevation [place] (NSTEMI) Assessment & Plan: - Dr Blackburn Consulted and managing, will monitor ON Status: Acute (2) Atrial fibrillation Assessment & Plan: - Rate controlled, continue home meds Qualifiers: Qualified Codes: I48.91 - Unspecified atrial fibrillation Status: Chronic (3) CAD (coronary artery disease) Qualifiers: Qualified Codes: I25.118 - Atherosclerotic heart disease of [place] coronary artery with other forms of angina pectoris Status: Chronic (4) HTN (hypertension) Assessment & Plan: - Continue home meds Qualifiers: Qualified Codes: I10 - Essential (primary) hypertension Status: Chronic (5) HLP Assessment & Plan: - Continue statin Status: Chronic Chief Complaint/HPI Chief Complaint/HPI 69 yo M with known CAD that presented with sub sternal chest pain that started today. States that he had nitro at home but did not think to take it. Denies any radiation of pain or shortness of breath. States that the pain is gone now after the medications in the ER. States that today he started a new medication for his pain Diclofenac and the pain started shortly after taking medication. States that he had a cath last Aug that was normal but it has been a while since he had a stress test. Discharge Summary-Simple/Stand Consultations Discharge Physical Examination Allergies: Coded Allergies: enalapril (Verified Adverse Reaction, Unknown, cough, 06/17/16) Vitals & I&Os Vital Sign - Last 12Hours Date Time Temp Pulse Resp B/P (MAP) Pulse Ox O2 Delivery O2 Flow Rate FiO2 04/23/20 15:57 36.8 65 18 150/78 (102) 99 Room Air Intake and Output 04/23/20 00:00 Intake Total 200 ml Balance 200 ml Hospital Course See final discharge diagnosis. Discharge Instructions to patient/family Please see electronic discharge instructions given to patient. Discharge Medications Reviewed and agree with Discharge Medication list on patient's Discharge Instruction sheet Clinical Quality Measures AMI/AHF: ASA po Prior to arrival: No DVT/VTE Risk/Contraindication: Risk Factor Score Per Nursin RFS Level Per Nursing on Admit: 2=Moderate BESSIE MCCARTY MD Apr 23, 2020 16:17
[2020-04-23] MEDS ORDERED: NS IV 1000 ML 1,000 ML IV SCH (16:19)
--- NOTE | 2020-04-23 16:19 | Cardiac Cath Report ---
Cardiac Cath Report Physician (s)/Retail Services Professional (s) Physician DAYANNA BATISTA MD Pre-Procedure Diagnosis Pre-Procedure Diagnosis: Coronary artery disease, ventricular tachycardia Post-Procedure Note Procedure Start Date: Apr 23, 2020 Name of Procedure: Left heart catheterization Findings/Procedure Note PROCEDURE NOTE: 69 years old gentleman with history of coronary artery disease, stent to the circumflex artery, had an abnormal stress test, I decided to proceed with cardiac catheterization. After explaining the procedure to the patient, all pros and cons were explained, all questions were answered. The patient signed the consent and then he was placed on the cardiac catheterization laboratory. Groin was prepped SL fashion local anesthesia was used. Sheath placed in the right radial artery, [place] catheter advanced to the left ventricular cavity then intubated the coronary system and angiogram was done. Pressure was measured At the end of the procedure the sheath was removed. Vascular bed was used FINDINGS: Hemodynamics LV 121/9, end-diastolic pressure of 9 Aorta 107/64 mean of 82 ANATOMY: Left Main is free of obstructive disease Left Anterior Descending has mild disease nonobstructive disease Left Circumflex has a patent stent proximally, OM has moderate disease did not change compared to the study of 2018 Right Coronory Artery is dominant with mild disease LV Gram was not done, pressure was measured CONCLUSION: 1. Patent stent in the proximal circumflex artery and moderate ostial OM1 disease that did not change compared to the study of 2018 2. Mild disease in the LAD and right coronary artery, nonobstructive disease 3. Normal left ventricular end-diastolic pressure DISCUSSION AND RECOMMENDATION: chest pain is probably noncardiac, stress test abnormality is extracardiac attenuation. Medical therapy is recommended Anesthesia Type: Conscious Sedation Estimated blood loss (mL): 10 ml Contrast Amount: 25 ml Total Radiation Dose: 240 mGy Post-Procedure Diagnosis Post-operative diagnosis: Chest pain Coronary artery disease Hypertension Hyperlipidemia DAYANNA BATISTA MD Apr 23, 2020 16:18
[2020-04-23] MEDS ORDERED: ASPI-983 PO (16:22)
[2020-04-23] MEDS ORDERED: CARV25TA PO (16:22)
--- NOTE | 2020-04-23 16:25 | Discharge Summary ---
Discharge [facility] Reconcile Patient Problems Problems Reviewed?: Yes Discharge Medications New, Converted or Re-Newed RX: Transmitted to Pharmacy New Medications: Aspirin (Aspirin EC) 81 Mg Tablet.dr 81 MG PO DAILY, #30 TAB Carvedilol (Carvedilol) 25 Mg Tablet 25 MG PO BID, #60 TAB Continued Medications: Apixaban (Eliquis) 5 Mg Tablet 5 MG PO BID, TAB Atorvastatin Calcium (Atorvastatin Calcium) 10 Mg Tablet 10 MG PO DAILY, TAB Diltiazem HCl (Diltiazem 24Hr ER) 240 Mg Cap.er.24h 240 MG PO DAILY, CAP Flecainide Acetate (Flecainide Acetate) 50 Mg Tablet 50 MG PO BID, TAB Garlic (Garlic) 500 Mg Capsule 500 MG PO DAILY, CAP Losartan Potassium (Losartan Potassium) 50 Mg Tablet 100 MG PO DAILY, TAB TAKES 2 (50MG) TABLETS Magnesium Oxide (Magnesium) 500 Mg Capsule 500 MG PO DAILY, CAP Multivit-Min/FA/Lycopene/Lut (Centrum Silver Tablet) 1 Each Tablet 1 TAB PO DAILY, TAB Niacinamide (Niacin) 500 Mg Tablet 1000 MG PO DAILY, TAB TAKES 2 (500MG) TABS [place] 3 Polyunsat Fatty Acids (Fish Oil 1,000 mg Capsule) 1,000 Mg Cap 3000 MG PO DAILY, CAP Omeprazole (Omeprazole) 20 Mg Capsule.dr 20 MG PO DAILY, CAP Discontinued Medications: Nebivolol HCl (Bystolic) 20 Mg Tablet 20 MG PO DAILY, TAB Patient Instructions Goal/Follow Up Appt: F.u with PCP in 1 week Make sure to keep your appt with the manager international Return to The [facility] For: Chest pain Shortness of breath Activity & Diet Discharge Diet: Cardiac Diet Activity as Tolerated: Yes BESSIE MCCARTY MD Apr 23, 2020 16:25
--- NOTE | 2020-04-23 16:35 | Cardiology Stress Test Report ---
Stress Test Report Date of Procedure/Referring: Date of Procedure: Apr 23, 2020 PCP Giselle Fisher MD Admitting Physician [place] Indications: Chest pain Baseline Heart Rate: 58 Baseline Blood Pressure: Blood Pressure Systolic: 150 Blood Pressure Diastolic: 78 Baseline EKG: Baseline EKG: Sinus rhythm Summary: Patient received 0.4 mg Lexiscan for stress test, ECG, heart rate and blood pressure were monitored continuously. Resting and stress dose of radio tracer were injected, imaging was acquired and reviewed in short axis, horizontal long axis and vertical long axis views. TID 1.0 SSS 13 SDS 11 EF 72% Conclusion: 1. Patient tolerated Lexiscan well 2. Reversible ischemia involving the apical segment and anteroapical segment 3. Normal left ventricular size and contractility, EF 72 percent DAYANNA BATISTA MD Apr 23, 2020 16:35
--- NOTE | 2020-04-23 18:32 | NUR ---
Entire discharge packet discussed with patient and patients who is at bedside. IV removed. once vasc band was removed from right radial wrist, no bleeding or oozing from site was noted. Gauze and tape applied to cath insertion site. Patient advised to follow up with in 2-4 weeks and with his primary care provider in 1 week. I advised patient that I was unable to schedule him a follow up appointment due to the physicians offices being closed att. New medications and medication to stop taking both highlighted on the discharge packet and pointed out to patient, patient showed agreement. Patient given information on cardiac catheterization and incision site care. Patient reports that he does not have any further questions att, that all of his questions have been answered. Patient and his are both complimentary about their time here at [facility] [place]. Patient leaving floor at 1830 via wheel chair with this nurse. This nurse wheeled patient to the registration entrance. Patient leaving in private vehicle, his is his ride home. right radial wrist dressing remains clean, dry and intact.
[2020-04-23] MEDS ORDERED: CARVEDILOL 12.5 MG (COREG) TABLET PO SCH (21:00)
== END 2020-04-23 18:30 | disposition home or self-care (01) ==
LOC: EDUNIT# 07:45 → ER 07:45 → CSD 12:39
PROVIDERS: ADMIT Family Medicine; ATTEND Family Medicine
DX: I25.10 Atherosclerotic heart disease of native coronary artery without angina pectoris (principal); I21.4 Non-ST elevation (NSTEMI) myocardial infarction; I10 Essential (primary) hypertension; I48.0 Paroxysmal atrial fibrillation; I47.2 Ventricular tachycardia; I49.3 Ventricular premature depolarization; I65.29 Occlusion and stenosis of unspecified carotid artery; E78.00 Pure hypercholesterolemia, unspecified; K21.9 Gastro-esophageal reflux disease without esophagitis; E78.5 Hyperlipidemia, unspecified; Z88.8 Allergy status to other drugs, medicaments and biological substances; Z79.899 Other long term (current) drug therapy; Z87.891 Personal history of nicotine dependence
CPT/HCPCS: 36415; 71045; 78452; 80053; 80061; 83735; 83874; 84484; 85025; 85610; 85730; 93005; 93017; 93041; 93458

== ENCOUNTER 2020-06-10 07:06 | Emergency (ER) | payer MEDICARE, MEDICAID ==
[~2020-06-10] VITALS: Ht 180 cm; Wt 68.0 kg
[~2020-06-10 07:06] MED LIST changes: +CARV25TA PO; +DICL75TA2 PO; +DILT240C91 PO; +FLEC50TA PO
--- NOTE | 2020-06-10 07:16 | ED Chest Pain ---
General Stated Complaint: CHEST PAIN Source: patient History of Present Illness Date Seen by Provider: Jun 10, 2020 Time Seen by Provider: 07:12 Initial Comments 69-year-old male presents with chest pain/chest pressure that started this morning. Reports he took a nitroglycerin and it's almost resolved. Patient has had recurrent chest pain. Patient had a negative heart catheterization on 04/23/2020. Patient sees Dr. Prabhakar.. He denies any shortness of breath. He denies any increased cough, fevers chills nausea or vomiting. Patient reports at the time he felt like his blood pressure was high with a systolic in the 200s. Patient took an aspirin prior to arrival Allergies and Home Medications Allergies Coded Allergies: enalapril (Verified Adverse Reaction, Unknown, cough, 06/17/16) Home Medications Apixaban 5 Mg Tablet, 5 MG PO BID, (Reported) Aspirin 81 Mg Tablet., 81 MG PO DAILY Prescribed by: BESSIE MCCARTY on 04/23/201621 Atorvastatin Calcium 10 Mg Tablet, 10 MG PO DAILY, (Reported) Carvedilol 25 Mg Tablet, 25 MG PO BID Prescribed by: BESSIE MCCARTY on 04/23/201621 Diltiazem HCl 240 Mg Cap.er.24h, 240 MG PO DAILY, (Reported) Flecainide Acetate 50 Mg Tablet, 50 MG PO BID, (Reported) Garlic 500 Mg Capsule, 500 MG PO DAILY, (Reported) Losartan Potassium 50 Mg Tablet, 100 MG PO DAILY, (Reported) TAKES 2 (50MG) TABLETS Magnesium Oxide 500 Mg Capsule, 500 MG PO DAILY, (Reported) Multivit-Min/FA/Lycopene/Lut 1 Each Tablet, 1 TAB PO DAILY, (Reported) Niacinamide 500 Mg Tablet, 1,000 MG PO DAILY, (Reported) TAKES 2 (500MG) TABS [place] 3 Polyunsat Fatty Acids 1,000 Mg Cap, 3,000 MG PO DAILY, (Reported) Omeprazole 20 Mg Capsule.dr, 20 MG PO DAILY, (Reported) Patient Home Medication List Home Medication List Reviewed: Yes Review of Systems Review of Systems Constitutional: No chills, No fever Respiratory: Denies Cough Cardiovascular: See HPI; Denies Chest Pain Gastrointestinal: Denies Abdominal Pain Genitourinary: No Symptoms Reported Musculoskeletal: no symptoms reported Psychiatric/Neurological: No Symptoms Reported Endocrine: No Symptoms Reported Past [id number]-[id number] Hx Past Med/Social Hx: Reviewed Nursing Past Med/Soc Hx Patient Social History Drug of Choice: POT Type Used: Cigarettes Former Smoker, Quit: Jun 17, 1980 2nd Hand Smoke Exposure: Yes Recent Foreign Travel: No Contact w/Someone Who Travel: No Recent Hopitalizations: No Immunizations Up To Date Tetanus Booster (TDap): More than 5yrs Date of Pneumonia Vaccine: Sep 21, 2019 Date of Influenza Vaccine: Sep 21, 2019 Past Medical History Surgeries: Yes Coronary Stent Respiratory: No Currently Using CPAP: No Currently Using BIPAP: No Cardiac: No (PVC'S) Coronary Artery Disease, High Cholesterol, Hypertension Neurological: No Genitourinary: No Gastrointestinal: Yes Gastroesophageal Reflux Musculoskeletal: No Endocrine: No Cancer: No Psychosocial: No Integumentary: No Physical Exam Vital Signs Vital Signs - First Documented 06/10/20 07:29 Temp 36.6 Pulse 68 Resp 11 B/P (MAP) 144/76 (98) Pulse Ox 96 Capillary Refill : Height, Weight, BMI Height: 5'11.00" Weight: 161lbs. 0.0oz. [id number]; 20.91 BMI Method:Stated General Appearance: No Apparent Distress, WD/WN HEENT: PERRL/EOMI Neck: Full Range of Motion Respiratory: Lungs Clear, Normal Breath Sounds, No Accessory Muscle Use, No Respiratory Distress Cardiovascular: Regular Rate, Rhythm, Normal Peripheral Pulses Gastrointestinal: Non Tender, Soft Extremity: Normal Capillary Refill, Normal Inspection, Normal Range of Motion Neurologic/Psychiatric: Alert, No Motor/Sensory Deficits Skin: Normal Color, Warm/Dry Progress/Results/Core Measures Results/Orders Lab Results Laboratory Tests Test 06/10/20 07:24 Range/Units White Blood Count 5.0 4.3-11.0 10^3/uL Red Blood Count 4.84 4.35-5.85 10^6/uL Hemoglobin 15.1 13.3-17.7 G/DL Hematocrit 45 40-54 % Mean Corpuscular Volume 92 80-99 FL Mean Corpuscular Hemoglobin 31 25-34 PG Mean Corpuscular Hemoglobin Concent 34 32-36 G/DL Red Cell Distribution Width 12.1 10.0-14.5 % Platelet Count 217 130-400 10^3/uL Mean Platelet Volume 9.9 7.4-10.4 FL Neutrophils (%) (Auto) 62 42-75 % Lymphocytes (%) (Auto) 24 12-44 % Monocytes (%) (Auto) 13 H 0-12 % Eosinophils (%) (Auto) 2 0-10 % Basophils (%) (Auto) 1 0-10 % Neutrophils # (Auto) 3.1 1.8-7.8 X 10^3 Lymphocytes # (Auto) 1.2 1.0-4.0 X 10^3 Monocytes # (Auto) 0.6 0.0-1.0 X 10^3 Eosinophils # (Auto) 0.1 0.0-0.3 10^3/uL Basophils # (Auto) 0.0 0.0-0.1 10^3/uL D-Dimer <= 0.27 0.00-0.49 UG/ML Sodium Level 138 135-145 MMOL/L Potassium Level 4.4 3.6-5.0 MMOL/L Chloride Level 105 98-107 MMOL/L Carbon Dioxide Level 23 21-32 MMOL/L Anion Gap 10 5-14 MMOL/L Blood Urea Nitrogen 26 H 7-18 MG/DL Creatinine 0.98 0.60-1.30 MG/DL Estimat Glomerular Filtration Rate > 60 BUN/Creatinine Ratio 27 Glucose Level 147 H 70-105 MG/DL Calcium Level 9.1 8.5-10.1 MG/DL Corrected Calcium 8.9 8.5-10.1 MG/DL Total Bilirubin 0.8 0.1-1.0 MG/DL Aspartate Amino Transf (AST/SGOT) 32 5-34 U/L Alanine Aminotransferase (ALT/SGPT) 36 0-55 U/L Alkaline Phosphatase 52 40-136 U/L Troponin I < 0.028 <0.028 NG/ML C-Reactive Protein High Sensitivity 0.12 0.00-0.50 MG/DL Total Protein 6.5 6.4-8.2 GM/DL Albumin 4.2 3.2-4.5 GM/DL My Orders Orders - DEL ANGEL,NASIR L DO Chest Pa/Lat (2 View) (06/10/20 07:16) Cbc With Automated Diff (06/10/20 07:16) Comprehensive Metabolic Panel (06/10/20 07:16) Hs C Reactive Protein (06/10/20 07:16) Fibrin Degradation Products (06/10/20 07:16) Troponin I (06/10/20 07:16) Ed Iv/Invasive Line Start (06/10/20 07:16) Ekg Tracing (06/10/20 07:16) Monitor-Rhythm Ecg Trace Only (06/10/20 07:16) Vital Signs/I&O 06/10/20 07:29 Temp 36.6 Pulse 68 Resp 11 B/P (MAP) 144/76 (98) Pulse Ox 96 Progress Progress Note : Time: 08:58 Progress Note Patient's symptoms had virtually resolved by time he arrived to the ER. Patient symptom-free throughout his ER stay. Patient with negative EKG that is unchanged from 04/22/20, patient with a negative heart catheter on 04/23/20. Patient with negative troponin, d-dimer and labs. Patient with no acute findings on his x- ray. I discussed with him at this time his symptoms do not appear to be cardiac in nature. I did suggest he follows up with Dr. Prabhakar to see if he would like any further testing. Patient is stable and will be discharged home Initial ECG Impression Date: Jun 10, 2020 Initial ECG Impression Time: 07:17 Initial ECG Rhythm: Normal Sinus Initial ECG Intervals: Normal Initial ECG Impression: Nonspecific Changes Initial ECG Comparisson: Unchanged (from 04/22/20) Diagnostic Imaging Diagonstic Imaging: Xray Comments [facility] [place] NAME: STEW LUCAS [facility] REC#: [id number] PT STATUS: REG ER : 1950 PHYSICIAN: NASIR DEL ANGEL DO ADMIT DATE: 06/10/20/ER Draft Date of Exam:06/10/20 CHEST PA/LAT (2 VIEW) INDICATION: chest tightness COMPARISON: 04/22/2020 FINDINGS: Frontal and lateral views of the chest demonstrate normal heart size and pulmonary vascularity. The lungs are clear. There are no signs of infiltrate, pleural effusions or pneumothoraces. The visualized osseous structures show no acute abnormalities. IMPRESSION: 1. No acute process. No signs of infiltrates, effusions or pneumothoraces. Departure Impression Primary Impression: Chest pain Qualified Codes: R07.9 - Chest pain, unspecified Disposition: 01 HOME, SELF-CARE Condition: Stable Departure-Patient Inst. Referrals: [facility] (PCP) Primary Care Physician MATEO JOSÉ (Family) Primary Care Physician Patient Instructions: Chest Pain (DC), Angina (DC) Add. Discharge Instructions: Follow-up with your primary care provider in the next 2-3 days for continuation of care Follow-up with Dr. Prabhakar as soon as possible for recheck of today symptoms and continuation of care Return to the ER as needed NASIR DLE ANGEL DO Jun 10, 2020 07:16
[2020-06-10 07:29] VITALS: BP 144/76
[2020-06-10 07:29] LABS: BASOPHILS % (AUTO) 1 % (0-10); EOSINOPHILS # (AUTO) 0.1 10^3/uL (0.0-0.3); EOSINOPHILS % (AUTO) 2 % (0-10); HEMATOCRIT 45 % (40-54); HEMOGLOBIN 15.1 G/DL (13.3-17.7); LYMPHOCYTES # (AUTO) 1.2 X 10^3 (1.0-4.0); LYMPHOCYTES % (AUTO) 24 % (12-44); MEAN CORPUSCULAR HEMOGLOBIN 31 PG (25-34); MEAN CORPUSCULAR HGB CONC 34 G/DL (32-36); MEAN CORPUSCULAR VOLUME 92 FL (80-99); MEAN PLATELET VOLUME 9.9 FL (7.4-10.4); MONOCYTES # (AUTO) 0.6 X 10^3 (0.0-1.0); MONOCYTES % (AUTO) 13 % (0-12); NEUTROPHILS # (AUTO) 3.1 X 10^3 (1.8-7.8); NEUTROPHILS % (AUTO) 62 % (42-75); PLATELET COUNT 217 10^3/uL (130-400); RED CELL DISTRIBUTION WIDTH 12.1 % (10.0-14.5)
[2020-06-10 07:41] LABS: ALBUMIN 4.2 GM/DL (3.2-4.5); CHLORIDE 105 MMOL/L (98-107); POTASSIUM 4.4 MMOL/L (3.6-5.0); SODIUM 138 MMOL/L (135-145)
[2020-06-10 07:42] LABS: CALCIUM 9.1 MG/DL (8.5-10.1)
[2020-06-10 07:43] LABS: GLUCOSE 147 MG/DL (70-105); TOTAL PROTEIN 6.5 GM/DL (6.4-8.2)
[2020-06-10 07:44] LABS: CARBON DIOXIDE 23 MMOL/L (21-32)
[2020-06-10 07:45] LABS: BILIRUBIN,TOTAL 0.8 MG/DL (0.1-1.0)
[2020-06-10 07:47] LABS: ALKALINE PHOSPHATASE 52 U/L (40-136); CREATININE SERUM 0.98 MG/DL (0.60-1.30); GFR ESTIMATED > 60
[2020-06-10 07:48] LABS: BUN/CREATININE RATIO 27
[2020-06-10 07:50] LABS: ALANINE AMINOTRANSFERASE 36 U/L (0-55)
--- NOTE | 2020-06-10 08:46 | Diagnostic Imaging Report ---
INDICATION: chest tightness COMPARISON: 04/22/2020 FINDINGS: Frontal and lateral views of the chest demonstrate normal heart size and pulmonary vascularity. The lungs are clear. There are no signs of infiltrate, pleural effusions or pneumothoraces. The visualized osseous structures show no acute abnormalities. IMPRESSION: 1. No acute process. No signs of infiltrates, effusions or pneumothoraces. Dictated by: Dictated on workstation # [id number]
== END 2020-06-10 09:20 | disposition home or self-care (01) ==
LOC: EDUNIT# 07:06 → ER 07:07
DX: R07.89 Other chest pain (principal); I10 Essential (primary) hypertension; I25.10 Atherosclerotic heart disease of native coronary artery without angina pectoris; E78.00 Pure hypercholesterolemia, unspecified; K21.9 Gastro-esophageal reflux disease without esophagitis; Z88.8 Allergy status to other drugs, medicaments and biological substances; Z79.82 Long term (current) use of aspirin; Z79.02 Long term (current) use of antithrombotics/antiplatelets; Z87.891 Personal history of nicotine dependence; Z77.22 Contact with and (suspected) exposure to environmental tobacco smoke (acute) (chronic); Z95.5 Presence of coronary angioplasty implant and graft
CPT/HCPCS: 36415; 71046; 80053; 84484; 85025; 85379; 86141; 93005; 93041

== ENCOUNTER → 2020-11-10 | Outpatient (CLI) | payer MEDICARE, MEDICAID ==
[~2020-11-10] MED LIST changes: +ASPI-1238 PO; -ASPI-983 PO
--- NOTE | 2020-11-10 10:05 | Diagnostic Imaging Report ---
INDICATION: Right neck mass. Right lobe of the thyroid measures 5.4 x 1.9 x 1.4 cm and the left lobe measures 5.3 x 2.0 x 1.4 cm. Isthmus is 3 mm in thickness. Both lobes of thyroid show homogeneous echotexture. No discrete thyroid mass is identified. Several small lymph nodes are identified the right neck. Largest measures 1.1 x 0.4 x 1.1 cm. No pathologically enlarged nodes are identified. IMPRESSION: 1. Unremarkable thyroid ultrasound. 2. Normal size right neck lymph nodes. Dictated by: Dictated on workstation # [id number]
== END ==
LOC: RAD 08:37
PROVIDERS: ATTEND Nurse Practitioner Community Health
DX: Z00.00 Encounter for general adult medical examination without abnormal findings (principal); R22.1 Localized swelling, mass and lump, neck
CPT/HCPCS: 76536

== ENCOUNTER → 2022-06-30 | Outpatient (CLI) | payer MEDICARE, MEDICAID ==
[~2022-06-30] MED LIST changes: +OMEP20TA56 PO; -OMEP20TA7 PO; +REGADENOSON 0.4 MG/5 ML SYR (LEXISCAN) IV ONE
[2022-06-30] MEDS: CATHETER FLUSH 10 ML SYR IVP PRN ×2 (07:44→09:01)
[2022-06-30 08:57] VITALS: BP 160/83
--- NOTE | 2022-06-30 12:02 | Cardiology Stress Test Report ---
Stress Test Report Date of Procedure/Referring: Date of Procedure: Jun 30, 2022 [facility] Admitting Physician Admitting Physician: Attending Physician: Enid Humphreys Indications: PAT Baseline Heart Rate: 60 Baseline Blood Pressure: Blood Pressure Systolic: 160 Blood Pressure Diastolic: 83 Baseline Vitals Vital Signs Date Time Temp Pulse Resp B/P (MAP) Pulse Ox O2 Delivery O2 Flow Rate FiO2 06/30/22 08:57 60 20 160/83 (108) 99 Room Air Baseline EKG: Baseline EKG: NSR Summary After explaining the procedure to the patient, he signed a consent and then brought to the stress nuclear laboratory. Patient received 0.4 mg Lexiscan for stress test, ECG, heart rate and blood pressure were monitored continuously. Resting and stress dose of radio tracer were injected, imaging was acquired and reviewed in short axis, horizontal long axis and vertical long axis views. TID: 1.12 SSS: 1 SDS: 1 EF: 66 1. Patient tolerated Lexiscan well 2. No significant ischemia or infarction on SPECT images 3. Normal left ventricular size and ejection fraction 66%. Copy Copies To 1: [facility]/DAYANNA GARG MD Jun 30, 2022 12:02
== END ==
LOC: CARD 07:45
PROVIDERS: ATTEND Physician Assistant
DX: I48.0 Paroxysmal atrial fibrillation (principal)
CPT/HCPCS: 78452; 93017; A9502

== ENCOUNTER → 2022-09-07 | Outpatient (CLI) | payer MEDICARE, MEDICAID ==
[~2022-09-07] MED LIST changes: -REGADENOSON 0.4 MG/5 ML SYR (LEXISCAN) IV ONE
--- NOTE | 2022-09-07 16:14 | Diagnostic Imaging Report ---
INDICATION: BILATERAL HIP JOINT PAIN TECHNIQUE: AP pelvis along with 2 views bilateral hip, 3:06 PM CORRELATION STUDY: None FINDINGS: The pelvis demonstrates no evidence for acute fracture. The pectineal lines and obturator rings are maintained. Pubic symphysis and SI joints are unremarkable. Bilateral hips demonstrate no evidence for acute fracture. Alignment is anatomic. The femoral head acetabular relationships are unremarkable. The bony trabecular pattern is intact. IMPRESSION: Negative examination of the pelvis and bilateral hips. Dictated by: Dictated on workstation # [id number]
--- NOTE | 2022-09-07 19:48 | Diagnostic Imaging Report ---
INDICATION: OSTEOARTHRITIS OF JOINT OF LT SHOULDER TECHNIQUE: 2 views of the left shoulder CORRELATION STUDY: None FINDINGS: Slight narrowing at the glenohumeral articulation with slight loss of the normal smooth cortical margins. Rather prominent osteophyte inferior left humeral head. Acromioclavicular joint is well-maintained. Loop recorder device over the left hilum. IMPRESSION: 1. Negative for acute bony abnormality of the shoulder. Degenerative changes of the left shoulder with joint space narrowing at the glenohumeral articulation with a rather prominent inferior humeral head osteophyte. Dictated by: Dictated on workstation # [id number]
== END ==
LOC: ORTHO 14:45
PROVIDERS: ATTEND Orthopaedic Surgery
DX: M19.012 Primary osteoarthritis, left shoulder (principal); M25.551 Pain in right hip; M25.552 Pain in left hip
CPT/HCPCS: 73030; 73523; G0463; 99203

== ENCOUNTER 2022-09-26 11:27 | Emergency (ER) | payer MEDICARE, MEDICAID ==
[~2022-09-26] VITALS: Ht 180 cm; Wt 68.0 kg
--- NOTE | 2022-09-26 11:46 | ED Integumentary General ---
General Chief Complaint: Allergic Reaction Stated Complaint: RASH/HIVES BOTTOM OF FEET SWELLING Source: patient Exam Limitations: no limitations History of Present Illness Date Seen by Provider: Sep 26, 2022 Time Seen by Provider: 11:45 Initial Comments 71 y/o male presents today with c/o hives x 2 days. Pt states on Tuesday, he first noticed the hives on his thighs, today they are on lower legs and right hip. He denies any new known environmental exposures or medications. He has not tried any OTC treatments for the hives. Timing/Duration: changing over time Severity: mild Location: extremities Possible Cause: no cause identified Modifying Factors: worse with scratching Associated Symptoms: denies symptoms Allergies and Home Medications Allergies Coded Allergies: enalapril (Verified Adverse Reaction, Unknown, cough, 09/26/22) Patient Home Medication List Home Medication List Reviewed: Yes Apixaban (Eliquis) 5 Mg Tablet, 5 MG PO BID, (Reported) Entered as Reported by: CALE OVIEDO on 04/22/20 1605 Aspirin (Aspirin EC) 81 Mg Tablet.dr, 81 MG PO DAILY Prescribed by: BESSIE MCCARTY on 04/23/20 1622 Atorvastatin Calcium (Atorvastatin Calcium) 10 Mg Tablet, 10 MG PO DAILY, (Reported) Entered as Reported by: FAUSTINO OROPEZA on 10/10/19 1325 Carvedilol (Carvedilol) 25 Mg Tablet, 25 MG PO BID Prescribed by: BESSIE MCCARTY on 04/23/20 1622 Diltiazem HCl (Diltiazem 24Hr ER) 240 Mg Cap.er.24h, 240 MG PO DAILY, (Reported) Entered as Reported by: CALE OVIEDO on 04/22/20 1605 Flecainide Acetate (Flecainide Acetate) 50 Mg Tablet, 50 MG PO BID, (Reported) Entered as Reported by: CALE OVIEDO on 04/22/20 1605 Garlic (Garlic) 500 Mg Capsule, 500 MG PO DAILY, (Reported) Entered as Reported by: CALE OVIEDO on 08/15/19 0753 Losartan Potassium (Losartan Potassium) 50 Mg Tablet, 100 MG PO DAILY, (Reported) Entered as Reported by: FAUSTINO OROPEZA on 10/10/19 1325 Magnesium Oxide (Magnesium) 500 Mg Capsule, 500 MG PO DAILY, (Reported) Entered as Reported by: CALE OVIEDO on 08/15/19752 Multivit-Min/FA/Lycopene/Lut (Centrum Silver Tablet) 1 Each Tablet, 1 TAB PO DAILY, (Reported) Entered as Reported by: CALE OVIEDO on 08/15/19752 Niacinamide (Niacin) 500 Mg Tablet, 1,000 MG PO DAILY, (Reported) Entered as Reported by: CALE OVIEDO on 08/15/19752 [place] 3 Polyunsat Fatty Acids (Fish Oil 1,000 mg Capsule) 1,000 Mg Cap, 3,000 MG PO DAILY, (Reported) Entered as Reported by: CALE OVIEDO on 08/15/19752 Omeprazole (Omeprazole) 20 Mg Capsule.dr, 20 MG PO DAILY, (Reported) Entered as Reported by: FAUSTINO OROPEZA on 10/10/19 1325 Review of Systems Review of Systems Constitutional: no symptoms reported EENTM: see HPI Respiratory: no symptoms reported Cardiovascular: no symptoms reported Gastrointestinal: no symptoms reported Musculoskeletal: no symptoms reported Skin: pruritus, rash Endocrine: No Symptoms Reported Hematologic/Lymphatic: No Symptoms Reported Past Kwzunjl-Fmdnfp-Qgeecx Hx Immunizations Up To Date Tetanus Booster (TDap): More than 5yrs Past Medical History Surgeries: Yes Coronary Stent Respiratory: No Currently Using CPAP: No Currently Using BIPAP: No Cardiac: No (PVC'S) Coronary Artery Disease, High Cholesterol, Hypertension Neurological: No Genitourinary: No Gastrointestinal: Yes Gastroesophageal Reflux Musculoskeletal: No Endocrine: No Cancer: No Psychosocial: No Integumentary: No Physical Exam Vital Signs Vital Signs - First Documented 09/26/22 11:40 Temp 36.0 Pulse 66 Resp 16 B/P (MAP) 144/78 (100) Pulse Ox 100 O2 Delivery Room Air Capillary Refill : General Appearance: WD/WN, no apparent distress HEENT: PERRL/EOMI, normal ENT inspection Neck: supple, normal inspection; No lymphadenopathy (R), No lymphadenopathy (L) Cardiovascular: regular rate, rhythm, no edema Respiratory: chest non-tender, lungs clear, normal breath sounds Extremities: non-tender, no pedal edema Skin: warm/dry, rash (wheals on right hip and lower abdomen, BLE) Skin Problem Location: lower extremities Skin Problem Character: rash, urticarial Lymphatic: no adenopathy Progress/Results/Core Measures Results/Orders My Orders Orders - CONRADO GARCIA APRN Diphenhydramine Injection (Benadryl Inje (09/26/22 12:00) Famotidine Tablet (Pepcid Tablet) (09/26/22 12:00) Medications Given in ED Current Medications Medications Dose Ordered Sig/Gonsalo Route Start Time Stop Time Status Last Admin Dose Admin Diphenhydramine HCl 25 mg ONCE ONCE IM 09/26/22 12:00 09/26/22 12:01 09/26/22 11:59 25 MG Famotidine 20 mg ONCE ONCE PO 09/26/22 12:00 09/26/22 12:01 09/26/22 11:59 20 MG Vital Signs/I&O 09/26/22 11:40 Temp 36.0 Pulse 66 Resp 16 B/P (MAP) 144/78 (100) Pulse Ox 100 O2 Delivery Room Air Departure Impression Primary Impression: Urticaria Disposition: HOME, SELF-CARE Condition: Stable Departure-Patient Inst. Decision time for Depature: 11:54 Referrals: [facility] (PCP/Family) Primary Care Physician Patient Instructions: Maria A (DC) Add. Discharge Instructions: Benadryl 25-50mg every 4-6 hours as needed. Pepcid(famotidine) 20mg twice daily. Avoid scratching/itching the affected areas. Over the counter hydrocortisone cream as needed. Follow up with PCP if symptoms persist. Follow up with any new/worsening concerns All discharge instructions reviewed with patient and/or family. Voiced understanding. CONRADO GARCIA APRN Sep 26, 2022 11:46
[2022-09-26] MEDS ORDERED: diphenhydrAMINE 50 MG/ML INJ (BENADRYL) IM ONE (12:00)
[2022-09-26] MEDS ORDERED: FAMOTIDINE 20 MG (PEPCID) TABLET PO ONE (12:00)
[2022-09-26 12:18] VITALS: BP 144/78
== END 2022-09-26 12:18 | disposition home or self-care (01) ==
LOC: EDUNIT# 11:27 → ER 11:29
DX: L50.9 Urticaria, unspecified (principal); Z28.310 Unvaccinated for COVID-19
CPT/HCPCS: 99284

== ENCOUNTER → 2022-09-28 | Outpatient (CLI) | payer MEDICARE, MEDICAID | LOC: ORTHO 11:06 | PROVIDERS: ATTEND Orthopaedic Surgery | DX: M19.012 Primary osteoarthritis, left shoulder (principal); I10 Essential (primary) hypertension; I25.10 Atherosclerotic heart disease of native coronary artery without angina pectoris; E78.2 Mixed hyperlipidemia | CPT/HCPCS: 99213 ==